=== PATIENT | female | born 1995 | race Caucasian/White ===

== ENCOUNTER 2016-05-07 21:40 | Emergency (ER) | payer BC ==
[2016-05-07 21:47] VITALS: BP 115/63
[2016-05-07] MEDS ORDERED: NS 0.9% 1000 ML* 1,000 ML IV ONE (21:56)
[2016-05-07] MEDS ORDERED: Ondansetron INJ* 2 MG/ML VIAL IV ONE (21:56)
[2016-05-07] MEDS ORDERED: Ketorolac INJ* 30 MG/ML 1 ML VIAL IM ONE (21:56)
[2016-05-07] MEDS ORDERED: Morphine INJ* 2 MG/ML 1 ML CARPUJECT IV ONE (21:56)
--- NOTE | 2016-05-07 22:19 | RAD ---
INDICATION: Right flank pain COMPARISON: RENAL AND BLADDER JANUARY 19, 2015 TECHNIQUE: Noncontrast axial source images were acquired from the level hemidiaphragms to the symphysis pubis as part of CT imaging for renal stone. Lung bases: The lung bases are clear. Liver: The liver is normal in size. Noncontrast imaging shows no evidence of a hepatic mass or ductal dilatation. Gallbladder: There are no calcified gallstones. There is no evidence of wall thickening or pericholecystic fluid.. Spleen: The spleen is normal in size. The noncontrast CT appearance is normal. Pancreas: Noncontrast imaging shows no pancreatic mass or ductal dilitation. Adrenal glands: No masses are identified. Kidneys/Bladder: There is a 1 mm, nonobstructive, lower pole right renal calculus There is no other evidence of nephrolithiasis. There is no CT evidence of hydronephrosis. Noncontrast imaging shows no evidence of a renal mass. The bladder is unremarkable.. Adenopathy: There is no evidence of intraperitoneal or retroperitoneal adenopathy. Evaluation is limited without oral contrast. Fluid collections: There are no free or localized fluid collections. Vessels: The aorta and iliac vessels are normal in caliber. There are no significant atherosclerotic changes. The IVC appears normal Pelvic organs: The uterus and adnexa appear normal GI tract: Evaluation of the bowel is limited without oral contrast. The stomach, small bowel, and lower GI tract appear grossly normal. There are no obstructive findings. The appendix is visualized and appears normal. Soft tissues: No soft tissue abnormalities of the extraperitoneal abdomen or pelvis are identified. Osseous structures: There are no acute osseous findings. IMPRESSION: NONOBSTRUCTIVE, 1 MM LOWER POLE RIGHT RENAL CALCULUS, OTHERWISE NEGATIVE
[2016-05-07 22:43] LABS: Hematocrit 40 % (35-47); Hemoglobin 13.1 g/dl (12.0-16.0); Mean Corpuscular HGB Conc 33 g/dl (31-36); Mean Corpuscular Hemoglobin 30 pg (27-31); Mean Corpuscular Volume 89 fL (80-97); Mean Platelet Volume 9 um3 (7.4-10.4); Red Blood Count 4.45 10^6/ul (4.0-5.4); Red Cell Distribution Width 13 % (10.5-15); White Blood Count 9.6 10^3/ul (3.5-10.8)
[2016-05-07 23:00] LABS: ALT 9 U/L (7-52); AST 14 U/L (13-39); Albumin 4.4 g/dL (3.2-5.2); Alkaline Phosphatase 78 U/L (34-104); Anion Gap 7 mmol/L (2-11); BUN/Creatinine Ratio 12.3 (8-20); Blood Urea Nitrogen 8 mg/dL (6-24); CO2 Carbon Dioxide 25 mmol/L (22-32); Calcium 9.4 mg/dL (8.6-10.3); Chloride 105 mmol/L (101-111); EGFR African American 146.6 (>60); Globulin 3.1 g/dL (2-4); Glucose 85 mg/dL (70-100); Lipase 31 U/L (11.0-82.0); Potassium 3.7 mmol/L (3.5-5.0); Sodium 137 mmol/L (133-145); Total Protein 7.5 g/dL (6.4-8.9)
[2016-05-07 23:42] LABS: Urine Bacteria Absent (Absent); Urine Bilirubin Negative (Negative); Urine Glucose Negative (Negative); Urine Nitrite Negative (Negative)
--- NOTE | 2016-05-08 05:14 | ED ---
Sabas Almeida Adam, scribed for Augusto Kwong on 05/07/16 at 2205 . Abdominal Pain/Female - HPI Summary HPI Summary: Pt is a 20 year old female presenting with pain in her right side that set on suddenly at 17:30. It is localized in her RLQ and right flank and it radiates to the left flank as well. Pt believes it is kidney stones. She has had multiple bouts of kidney stones in the past, the most recent being "years ago". She denies any hematuria, N/V/D, fever, or . She is currently on her MP. Pt takes Adderall, control, and antidepressants. Positive alcohol use. Negative Hx of appendectomy. - History of Current Complaint Chief Complaint: ED Stated Complaint: ABD PAIN Time Seen by Provider: 05/07/16 21:51 Hx Obtained From: Patient Onset/Duration: Sudden Onset, Lasting Hours, Still Present Timing: Constant Severity Initially: Moderate Severity Currently: Moderate Pain Intensity: 7 Pain Scale Used: 0-10 Numeric Location: Discrete At: RLQ, Flank - Right Radiates: Yes Radiates to: Flank - Left Character: Sharp Aggravating Factor(s): Nothing Alleviating Factor(s): Nothing Associated Signs and Symptoms: Positive: Negative Simlar Episode/Dx as:: Multiple kidney stones in the past Allergies/Adverse Reactions: Allergies Allergy/AdvReac Type Severity Reaction Status Date / Time No Known Allergies Allergy Verified 11/18/13 19:28 PMH/Surg Hx/FS Hx/Imm Hx History: Reports: Hx Kidney Stones - BILATERAL, MANY TIMES Musculoskeletal History: Denies: Hx Rheumatoid Arthritis Infectious Disease History: No Infectious Disease History: Denies: Traveled Outside the [place] in Last 30 Days - Family History Known Family History: Positive: None - Noncontributory - Social History Occupation: Student Lives: With Family - Parents Alcohol Use: Occasionally Hx Substance Use: No Substance Use Type: Reports: None Hx Tobacco Use: No Smoking Status (MU): Never Smoked Tobacco Review of Systems Negative: Fever Positive: Abdominal Pain - RLQ. Negative: Vomiting, Diarrhea, Nausea Positive: flank pain - Right All Other Systems Reviewed And Are Negative: Yes Physical Exam Triage Information Reviewed: Yes Vital Signs On Initial Exam: Initial Vitals Temp Pulse Resp BP Pulse Ox 97.9 F 95 16 115/63 98 05/07/16 21:44 05/07/16 21:44 05/07/16 21:44 05/07/16 21:44 05/07/16 21:44 Vital Signs Reviewed: Yes Appearance: Positive: Well-Appearing, No Pain Distress Skin: Positive: Warm, Skin Color Reflects Adequate Perfusion, Dry Head/Face: Positive: Normal Head/Face Inspection Eyes: Positive: EOMI, MAMI ENT: Positive: Normal ENT inspection Neck: Positive: Supple, Nontender Respiratory/Lung Sounds: Positive: Clear to Auscultation, Breath Sounds Present Cardiovascular: Positive: RRR, Pulses are Symmetrical in both Upper and Lower Extremities Abdomen Description: Positive: Other: - Tenderness in the RLQ Bowel Sounds: Positive: Present Musculoskeletal: Positive: Normal, Strength/ROM Intact Neurological: Positive: Normal, Sensory/Motor Intact, Alert, Oriented to Person Place, Time Diagnostics - Vital Signs Vital Signs Temp Pulse Resp BP Pulse Ox 05/07/16 21:44 97.9 F 95 16 115/63 98 - Laboratory Result Diagrams: 05/07/16 22:31 05/07/16 22:31 Lab Statement: Any lab studies that have been ordered have been reviewed, and results considered in the medical decision making process. - CT ABDOMEN/PELVIS CT Interpretation Completed By: Radiologist - IMPRESSION: NONOBSTRUCTIVE, 1 MM LOWER POLE RIGHT RENAL CALCULUS, OTHERWISE NEGATIVE Abdominal Pain Fem Course/Dx - Diagnoses Provider Diagnoses: Flank pain Discharge - Discharge Plan Condition: Stable Disposition: HOME Patient Education Materials: Flank Pain (ED) Referrals: Lali Green NP [Primary Care Provider] - Additional Instructions: Follow up with Lali Green. The documentation as recorded by the Sabas parham Adam accurately reflects the service I personally performed and the decisions made by Varghese martinez Emmanuel.
== END 2016-05-08 01:07 | disposition home or self-care (01) ==
LOC: ED 21:40
DX: R10.31 Right lower quadrant pain (principal)
CPT/HCPCS: 36415; 74176; 80053; 81003; 81015; 83690; 84702; 85025; 96374; 96375; 99285; J1885; J2270; J2405

== ENCOUNTER 2016-09-02 06:56 | Emergency (ER) | payer BC ==
[2016-09-02] MEDS ORDERED: Ondansetron INJ* 2 MG/ML VIAL IV ONE (07:42)
[2016-09-02] MEDS ORDERED: Ketorolac INJ* 30 MG/ML 1 ML VIAL IV PUSH ONE (07:42)
[2016-09-02] MEDS ORDERED: NS 0.9% 1000 ML* 1,000 ML IV ONE ×2 (07:42→09:42)
[2016-09-02 08:04] LABS: Hematocrit 42 % (35-47); Hemoglobin 13.9 g/dl (12.0-16.0); Mean Corpuscular HGB Conc 33 g/dl (31-36); Mean Corpuscular Hemoglobin 29 pg (27-31); Mean Corpuscular Volume 87 fL (80-97); Mean Platelet Volume 8 um3 (7.4-10.4); Red Blood Count 4.76 10^6/ul (4.0-5.4); Red Cell Distribution Width 13 % (10.5-15); White Blood Count 9.3 10^3/ul (3.5-10.8)
[2016-09-02 08:07] LABS: Manual Entry Verification AS; UR Preg Internal Control QC Line Present; UR Preg Kit Lot# 6030156
[2016-09-02 08:18] LABS: BUN/Creatinine Ratio 15.6 (8-20); Calcium 9.3 mg/dL (8.6-10.3); EGFR African American 120.6 (>60); EGFR Non-African American 93.7 (>60); Potassium 3.9 mmol/L (3.5-5.0)
[2016-09-02 08:27] LABS: Urine Bacteria 1+ (Absent); Urine Bilirubin Negative (Negative); Urine Glucose Negative (Negative); Urine Nitrite Positive (Negative)
--- NOTE | 2016-09-02 08:50 | RAD ---
INDICATION: Right flank pain COMPARISON: CT May 07, 2016 TECHNIQUE: Noncontrast axial source images were acquired from the level hemidiaphragms to the symphysis pubis as part of CT imaging for renal stone. The examination is mildly limited due to motion artifact Lung bases: The lung bases are clear. Liver: The liver is normal in size. Noncontrast imaging shows no evidence of a hepatic mass or ductal dilatation. Gallbladder: There are no calcified gallstones. There is no evidence of wall thickening or pericholecystic fluid.. Spleen: The spleen is normal in size. The noncontrast CT appearance is normal. Pancreas: Noncontrast imaging shows no pancreatic mass or ductal dilitation. Adrenal glands: No masses are identified. Kidneys/Bladder: The 1 mm lower pole right renal calculus is not identified on today's examination. There are currently no definitive radiopaque calculi although this tiny calculus might be very difficult to evaluate given the mild limitations of this study or the patient may have passed this tiny calculus. There is mild right-sided hydronephrosis and hydroureter. Noncontrast imaging shows no evidence of a renal mass. The bladder is unremarkable and is only partially distended.. Adenopathy: There is no evidence of intraperitoneal or retroperitoneal adenopathy. Evaluation is limited without oral contrast. Fluid collections: There are no free or localized fluid collections. Vessels: The aorta and iliac vessels are normal in caliber. There are no significant atherosclerotic changes. The IVC appears normal Pelvic organs: The uterus and adnexa appear normal GI tract: Evaluation of the bowel is limited without oral contrast. The stomach, small bowel, and lower GI tract appear grossly normal. There are no obstructive findings. Soft tissues: No soft tissue abnormalities of the extraperitoneal abdomen or pelvis are identified. Osseous structures: There are no acute osseous findings. IMPRESSION: MILDLY LIMITED EXAMINATION DUE TO MOTION ARTIFACT. MILD RIGHT-SIDED HYDRONEPHROSIS AND HYDROURETER. NO DEFINITE RADIOPAQUE CALCULUS
[2016-09-02 12:31] LABS: Urine Bacteria 3+ (Absent); Urine Bilirubin Negative (Negative); Urine Glucose Negative (Negative); Urine Nitrite Negative (Negative)
[2016-09-02 13:12] VITALS: BP 103/73
--- NOTE | 2016-09-02 15:59 | ED ---
Wilmer Almeida Billy scribed for Jerrell Aquino MD on 09/02/16 at 0805 . GI/ HPI - HPI Summary HPI Summary: Patient is a 20 year-old female coming to [facility] for evaluation of right-sided flank pain. She states that the pain started at 0100 but worsened by 0400 today. Positive nausea without vomiting. She rates the pain at 6-7/10. She has a history of kidney stones and states that the pain now is similar to previous kidney stones. She follows Dr. Mobley for urology. Denies any other significant past medical history. - History of Current Complaint Chief Complaint: EDFlankPain Time Seen by Provider: 09/02/16 07:16 Stated Complaint: FLANK PAIN Hx Obtained From: Patient Onset/Duration: Started Hours Ago, Worse Since - 0400 Timing: Constant Severity: Moderate Current Severity: Moderate Pain Intensity: 7 Location of Pain: Flank Associated Signs and Symptoms: Positive: Nausea. Negative: Vomiting Aggravating Factor(s): Nothing Alleviating Factor(s): Nothing - Allergy/Home Medications Allergies/Adverse Reactions: Allergies Allergy/AdvReac Type Severity Reaction Status Date / Time No Known Allergies Allergy Verified 09/02/16 07:18 PMH/Surg Hx/FS Hx/Imm Hx Cardiovascular History: Denies: Hx Myocardial Infarction History: Reports: Hx Kidney Stones - BILATERAL, MANY TIMES Musculoskeletal History: Denies: Hx Rheumatoid Arthritis - Surgical History Surgery Procedure, Year, and Place: MULTIPLE KIDNEY STONE REMOVALS AND STENT PLACMENTS Infectious Disease History: No Infectious Disease History: Denies: Traveled Outside the [place] in Last 30 Days - Family History Known Family History: Negative: Cardiac Disease, Hypertension, Diabetes - Social History Alcohol Use: Occasionally Hx Substance Use: No Substance Use Type: Reports: None Hx Tobacco Use: No Smoking Status (MU): Never Smoked Tobacco Review of Systems Negative: Fever Positive: Nausea. Negative: Vomiting Positive: flank pain All Other Systems Reviewed And Are Negative: Yes Physical Exam - Summary Physical Exam Summary: VITAL SIGNS: Reviewed. GENERAL: Patient is a well developed and nourished female who is lying comfortable in the stretcher. Patient is not in any acute respiratory distress. HEAD AND FACE: Normocephalic and atraumatic. EYES: PERRLA, EOMI x 2, No injected conjunctiva. EARS: Hearing grossly intact. Ear canals and tympanic membranes are WNL. MOUTH: Oropharynx within normal limits. NECK: Supple, trachea is midline, no adenopathy, no JVD. CHEST: Symmetric, no tenderness at palpation LUNGS: Clear to auscultation bilaterally. No wheezing or crackles. CVS: RRR,, S1 and S2 present, no murmurs or gallops appreciated. ABDOMEN: Soft, non-tender. No signs of distention. Positive bowel sounds. No rebound no guarding, and no masses palpated. No abdominal bruit or pulsations. Positive CVAT's in right side EXTREMITIES: FROM in all major joints, no edema, no cyanosis or clubbing. NEURO: Alert and oriented x 3. No acute neurological deficits. Speech is normal. SKIN: Dry and warm Triage Information Reviewed: Yes Vital Signs On Initial Exam: Initial Vitals Temp Pulse Resp BP Pulse Ox 98.4 F 108 18 116/75 99 09/02/16 06:58 09/02/16 06:58 09/02/16 06:58 09/02/16 06:58 09/02/16 06:58 Vital Signs Reviewed: Yes - [place] Coma Scale Coma Scale Total: 15 Diagnostics - Vital Signs Vital Signs Temp Pulse Resp BP Pulse Ox 09/02/16 07:13 97.0 F 112 16 107/92 98 09/02/16 06:58 98.4 F 108 18 116/75 99 - Laboratory Lab Results: Lab Results 09/02/16 09/02/16 09/02/16 Range/Units 07:30 07:57 07:57 WBC 9.3 (3.5-10.8) 10^3/ul RBC 4.76 (4.0-5.4) 10^6/ul Hgb 13.9 (12.0-16.0) g/dl Hct 42 (35-47) % MCV 87 (80-97) fL MCH 29 (27-31) pg MCHC 33 (31-36) g/dl RDW 13 (10.5-15) % Plt Count 277 (150-450) 10^3/ul MPV 8 (7.4-10.4) um3 Sodium 136 (133-145) mmol/L Potassium 3.9 (3.5-5.0) mmol/L Chloride 106 (101-111) mmol/L Carbon Dioxide 23 (22-32) mmol/L Anion Gap 7 (2-11) mmol/L BUN 12 (6-24) mg/dL Creatinine 0.77 (0.51-0.95) mg/dL Est GFR ( Amer) 120.6 (>60) Est GFR (Non-Af Amer) 93.7 (>60) BUN/Creatinine Ratio 15.6 (8-20) Glucose 89 (70-100) mg/dL Calcium 9.3 (8.6-10.3) mg/dL Urine Color Yellow Urine Appearance Cloudy Urine pH 6.0 (5-9) Ur Specific [place] 1.010 (1.010-1.030) Urine Protein Negative (Negative) Urine Ketones Negative (Negative) Urine Blood 3+ H (Negative) Urine Nitrate Positive H (Negative) Urine Bilirubin Negative (Negative) Urine Urobilinogen Negative (Negative) Ur Leukocyte Esterase 3+ H (Negative) Urine WBC (Auto) 3+(>20/hpf) H (Absent) Urine RBC (Auto) 3+(>10/hpf) H (Absent) Ur Squamous Epith Cells Present H (Absent) Calcium Oxalate Crystal Present H (Absent) Urine Bacteria 1+ H (Absent) Urine Glucose Negative (Negative) Urine Ascorbic Acid * H (Negative) Urine Test Negative (Negative) Result Diagrams: 09/02/16 07:57 09/02/16 07:57 Lab Statement: Any lab studies that have been ordered have been reviewed, and results considered in the medical decision making process. - CT abd/pel CT Interpretation Completed By: Radiologist - MILDLY LIMITED EXAMINATION DUE TO MOTION ARTIFACT. MILD RIGHT-SIDED HYDRONEPHROSIS AND HYDROURETER. NO DEFINITE RADIOPAQUE CALCULUS Re-Evaluation - Re-Evaluation First Eval Re-Evaluation Time: 09:38 Change: Improved Comment: The patient is sleeping comfortably at this time. GIGU Course/Dx - Course Assessment/Plan: Patient is a 20 year-old female coming to [facility] for evaluation of right-sided flank pain. She states that the pain started at 0100 but worsened by 0400 today. Positive nausea without vomiting. She rates the pain at 6-7/10. She has a history of kidney stones and states that the pain now is similar to previous kidney stones. She follows Dr. Mobley for urology. Denies any other significant past medical history. Test results WNL. In the ED course, she was given IV fluids and Toradol for the pain and her symptoms subsided. CT abd/pel shows no urolithiasias or ureterlithiasis however she has hydronephrosis , therefore I believe she either has already passed the stone. UA is contaminated, therefore it will be sent for cultures. At this time she is feeling much better. She has no other complaints, pain is 0/10 at this time. She is eating, drinking, and ambulating. Therefore she will be discharged home to follow up with PCP. She was observed for more than 4 hours in the ED and the pain did not return. I discussed all the findings and test results with the patient. Patient was instructed to return to the emergency room immediately if any of the symptoms return or worsens. Plan of care was discussed with the patient and understands and agrees. All questions were answered at patient satisfaction. There were no further complaints or concerns. Lung exam before discharge: CTA B/L. Good air exchange. No wheezing or crackles heard. CVS: S1 and S2 present. No murmurs appreciated. Patient is alert and oriented x 3. Patient is hemodynamically stable. Patient will be discharged home with follow up PCP in the next 2-3 days - Diagnoses Differential Diagnoses - Female: Renal Calculi, Renal Colic, Urinary Tract Infection Provider Diagnoses: Hydroureteronephrosis, Flank pain Discharge - Discharge Plan Condition: Stable Disposition: HOME Patient Education Materials: Flank Pain (ED) Referrals: Lali Green NP [Primary Care Provider] - The documentation as recorded by the Wilmer parham Billy accurately reflects the service I personally performed and the decisions made by me, Jerrell Aquino MD.
--- NOTE | 2016-09-04 14:00 | PN ---
Progress Note - Progress Note Note: Patient urine culture grew E coli >100,000. Sent script to pharmacy for cipro 500mg bid x7 days to [facility]. called and informed patient.
== END 2016-09-02 13:10 | disposition home or self-care (01) ==
LOC: ED 06:56
DX: N13.30 Unspecified hydronephrosis (principal); R10.84 Generalized abdominal pain; R11.0 Nausea
CPT/HCPCS: 36415; 74176; 80048; 81003; 81015; 81025; 85027; 87077; 87086; 87186; 99284; J1885; J2405

== ENCOUNTER 2016-11-11 17:05 | Emergency (ER) | payer BC ==
--- NOTE | 2016-11-11 19:25 | ED ---
Throat Pain/Nasal Congestion - HPI Summary HPI Summary: 21F presents with sore throat for three days. She was seen at urgent care and prescribed augmentin and states sore throat is not getting any better. She never had a strept swap. She admits to a cough and sinus congestion. She does have history of allergies. She denies any fever or anyone else being sick. She denies any chest pain, SOB or difficulty managing secretions. - History of Current Complaint Chief Complaint: EDThroatPain Time Seen by Provider: 11/11/16 18:49 - Allergies/Home Medications Allergies/Adverse Reactions: Allergies Allergy/AdvReac Type Severity Reaction Status Date / Time No Known Allergies Allergy Verified 09/02/16 07:18 PMH/Surg Hx/FS Hx/Imm Hx Endocrine/Hematology History: Denies: Hx Anticoagulant Therapy Cardiovascular History: Denies: Hx Myocardial Infarction History: Reports: Hx Kidney Stones - BILATERAL, MANY TIMES Musculoskeletal History: Denies: Hx Rheumatoid Arthritis - Surgical History Surgery Procedure, Year, and Place: MULTIPLE KIDNEY STONE REMOVALS AND STENT PLACMENTS Infectious Disease History: No Infectious Disease History: Denies: Traveled Outside the [place] in Last 30 Days - Family History Known Family History: Positive: None - Noncontributory Negative: Cardiac Disease, Hypertension, Diabetes - Social History Alcohol Use: Occasionally Hx Substance Use: No Substance Use Type: Reports: None Hx Tobacco Use: No Smoking Status (MU): Never Smoked Tobacco Review of Systems Negative: Fever Positive: Sore Throat Negative: Chest Pain Negative: Shortness Of Breath All Other Systems Reviewed And Are Negative: Yes Physical Exam Triage Information Reviewed: Yes Vital Signs On Initial Exam: Initial Vitals Temp Pulse Resp BP Pulse Ox 98.5 F 105 16 122/75 96 11/11/16 17:06 11/11/16 17:06 11/11/16 17:06 11/11/16 17:06 11/11/16 17:06 Vital Signs Reviewed: Yes Appearance: Positive: Well-Appearing Skin: Positive: Warm, Dry Head/Face: Positive: Normal Head/Face Inspection Eyes: Positive: Normal, Conjunctiva Clear ENT: Positive: Pharyngeal erythema, TMs normal, Tonsillar swelling. Negative: Tonsillar exudate Neck: Positive: Supple, Nontender, No Lymphadenopathy Respiratory/Lung Sounds: Positive: Clear to Auscultation, Breath Sounds Present Cardiovascular: Positive: Normal, RRR Diagnostics - Vital Signs Vital Signs Temp Pulse Resp BP Pulse Ox 11/11/16 17:06 98.5 F 105 16 122/75 96 - Laboratory Lab Statement: Any lab studies that have been ordered have been reviewed, and results considered in the medical decision making process. EENT Course/Dx - Course Course Of Treatment: 21F presents with sore throat for three days. She was seen at urgent care and prescribed augmentin and states sore throat is not getting any better. She never had a strept swap. She admits to a cough and sinus congestion. She does have history of allergies. She denies any fever or anyone else being sick. She denies any chest pain, SOB or difficulty managing secretions. on exam tonsils+2, soft palate symmetric, uvula midline, no exudate. discussed likely viral and that is why not working. will add magic mouth wash and steriod. patient understands and agrees with plan. - Differential Diagnoses Differential Diagnoses: Pharyngitis, Other - strep, mono - Diagnoses Provider Diagnoses: Pharyngitis Discharge - Discharge Plan Condition: Good Disposition: HOME Prescriptions: Dexamethasone TAB* [Decadron TAB*] 4 mg PO DAILY #4 tab Fluticasone NASAL SPRAY 50MCG* [Flonase NASAL SPRAY 50MCG*] 1 spray BOTH NARES DAILY #1 btl Magic Mouth Was-JENNI/MAAL/LIDO* 5 ml SWISH SPIT QID #100 ml Patient Education Materials: Pharyngitis (ED) Referrals: Lali Green SETTER MACHINE [Primary Care Provider] - Additional Instructions: Magic mouthwash 5ml swish and spit can use 4x a day Steroid once a day starting tomorrow Take Flonase one spray each nostril daily for nasal congestion Take Tylenol or ibuprofen for pain Can gargle salt water Can use cough drops or products such as cloraseptic spray Return to ED if develop fever does not respond to Tylenol or ibuprofen, inability to swallow, or difficulty breathing or any new or worsening symptoms
[2016-11-11] MEDS ORDERED: Dexamethasone TAB* 4 MG PO ONE (19:26)
[2016-11-11 20:05] VITALS: BP 108/59
== END 2016-11-11 20:03 | disposition home or self-care (01) ==
LOC: ED 17:05
DX: J02.9 Acute pharyngitis, unspecified (principal)
CPT/HCPCS: 99282; J8540

== ENCOUNTER 2016-12-08 23:29 | Emergency (ER) | payer BC ==
[2016-12-09] MEDS ORDERED: Charcoal ACTIVATED* 25 GM/120 ML BTL PO ONE (00:07)
[2016-12-09 00:44] LABS: Add Diff/Slide Review? Slide Review Added; Comments Flag Yes; Hematocrit 39 % (35-47); Hemoglobin 13.1 g/dl (12.0-16.0); Mean Corpuscular HGB Conc 33 g/dl (31-36); Mean Corpuscular Hemoglobin 29 pg (27-31); Mean Corpuscular Volume 88 fL (80-97); Mean Platelet Volume 8 um3 (7.4-10.4); Red Blood Count 4.47 10^6/ul (4.0-5.4); Red Cell Distribution Width 13 % (10.5-15); White Blood Count 18.1 10^3/ul (3.5-10.8)
[2016-12-09 00:52] LABS: ALT 16 U/L (7-52); AST 19 U/L (13-39); Acetaminophen < 15 mcg/mL; Albumin 4.4 g/dL (3.2-5.2); Alcohol < 10 mg/dL (<10); Alkaline Phosphatase 62 U/L (34-104); Anion Gap 8 mmol/L (2-11); BUN/Creatinine Ratio 8.6 (8-20); Blood Urea Nitrogen 7 mg/dL (6-24); CO2 Carbon Dioxide 25 mmol/L (22-32); Calcium 9.7 mg/dL (8.6-10.3); Chloride 103 mmol/L (101-111); EGFR African American 112.7 (>60); EGFR Non-African American 87.6 (>60); Glucose 103 mg/dL (70-100); Potassium 3.8 mmol/L (3.5-5.0); Salicylate < 2.50 mg/dL (<30); Sodium 136 mmol/L (133-145); Total Protein 7.4 g/dL (6.4-8.9); Urine Bacteria 1+ (Absent); Urine Bilirubin Negative (Negative); Urine Glucose Negative (Negative); Urine Nitrite Negative (Negative)
[2016-12-09 01:41] LABS: Benzodiazepine Urine Screen None Detected (None Detect)
--- NOTE | 2016-12-09 02:25 | ED ---
David Almeida Rebecca, scribed for Eduardo Ross MD on 12/09/16 at 0007 . Substance Abuse/Use - HPI Summary HPI Summary: Pt is a 21 y/o F BIBA who presents to ED s/p excessive hydroxyzine ingestion. At approximately 2000, the pt took a "handful" of hydroxyzine while at home. Her parent called EMS and they had to convince her to be evaluated by [facility] as she was "very distracted." Pt is unsure of how many she took. Denies SIs or attempting suicide by ingestion of the pills. No prior recent episodes. PMHx depression. Mother notes a recent increase in stress due to a new job. - History Of Current Complaint Chief Complaint: EDSubstanceAbuse Stated Complaint: OVERDOSE Time Seen by Provider: 12/08/16 23:57 Hx Obtained From: Family/Clinical Pharmacy Technician - Mother Onset/Duration of Drug/ETOH Abuse: Hours - 2200 Ingestion History: Type/Name Of Drug - Hydroxyzine Overdose Characteristics: Oral Aggravating Factor(s): Nothing Alleviating Factor(s): Nothing - Allergies/Home Medications Allergies/Adverse Reactions: Allergies Allergy/AdvReac Type Severity Reaction Status Date / Time No Known Allergies Allergy Verified 09/02/16 07:18 PMH/Surg Hx/FS Hx/Imm Hx Endocrine/Hematology History: Denies: Hx Anticoagulant Therapy Cardiovascular History: Denies: Hx Myocardial Infarction History: Reports: Hx Kidney Stones - BILATERAL, MANY TIMES Musculoskeletal History: Denies: Hx Rheumatoid Arthritis Psychiatric History: Reports: Hx Depression - Surgical History Surgery Procedure, Year, and Place: MULTIPLE KIDNEY STONE REMOVALS AND STENT PLACMENTS Infectious Disease History: Denies: Traveled Outside the [place] in Last 30 Days - Family History Known Family History: Negative: Cardiac Disease, Hypertension, Diabetes - Social History Alcohol Use: Occasionally Hx Substance Use: No Substance Use Type: Reports: None Hx Tobacco Use: No Smoking Status (MU): Never Smoked Tobacco Review of Systems Positive: Other - s/p hydroxyzine ingestion Positive: Other - "very distracted" All Other Systems Reviewed And Are Negative: Yes Physical Exam Triage Information Reviewed: Yes Vital Signs On Initial Exam: Initial Vitals Pulse Pulse Ox 70 86 12/08/16 23:55 12/08/16 23:55 Vital Signs Reviewed: Yes Appearance: Positive: No Pain Distress, Thin Skin: Positive: Warm Head/Face: Positive: Normal Head/Face Inspection Eyes: Positive: MAMI ENT: Positive: Hearing grossly normal Neck: Positive: Supple Respiratory/Lung Sounds: Positive: Breath Sounds Present Cardiovascular: Positive: RRR Abdomen Description: Positive: Nontender, Soft Bowel Sounds: Positive: Present Musculoskeletal: Positive: Strength/ROM Intact Neurological: Positive: Alert, Oriented to Person Place, Time Psychiatric: Positive: Anxious Diagnostics - Laboratory Result Diagrams: 12/09/16 00:10 12/09/16 00:10 Lab Statement: Any lab studies that have been ordered have been reviewed, and results considered in the medical decision making process. - EKG 0018 Cardiac Rate: Tachycardia - 123 bpm EKG Rhythm: Sinus Tachycardia EKG Interpretation: Normal Re-Evaluation - Re-Evaluation First Eval Change: Improved Course/Dx - Course Assessment/Plan: Pt is a 21 y/o F BIBA who presents to ED s/p excessive hydroxyzine ingestion. At approximately 2000, the pt took a "handful" of hydroxyzine while at home. Her parent called EMS and they had to convince her to be evaluated by [facility] as she was "very distracted." Pt is unsure of how many she took. Denies SIs or attempting suicide by ingestion of the pills. No prior recent episodes. PMHx depression. Mother notes a recent increase in stress due to a new job. EKG reveals sinus tachycardia. Toxicology reveals presumptive positive H for opiates and amphetamines and serum alcohol <10. WBC of 18.1. In the ED course, the pt received ActidoseAqua and Ativan. Medically cleared for MHE at 0605. Pt will be signed out, pending dispo, awaiting MHE. - Diagnoses Provider Diagnoses: Polysubstance abuse Discharge - Discharge Plan Condition: Stable Disposition: OTHER Discharge Disposition Comment: Pt will be signed out, pending dispo, awaiting MHE. Referrals: Lali Green NP [Primary Care Provider] - The documentation as recorded by the David parham Rebecca accurately reflects the service I personally performed and the decisions made by me, Eduardo Ross MD.
[2016-12-09] MEDS ORDERED: LORazepam INJ* 2 MG/ML 1 ML VIAL IV PUSH ONE (03:31)
[2016-12-09] MEDS ORDERED: LORazepam INJ* 2 MG/ML 1 ML VIAL ONE (03:35)
[2016-12-09 12:31] VITALS: BP 115/74
--- NOTE | 2016-12-15 21:48 | ED ---
Lyubov Almeida Alfonso, scribed for Kentrell Motta MD on 12/09/16 at 1133 . Progress - Progress Note Progress Note: Reevaluation at 1145. She is prescribed Zoloft but denies taking it. She reports taking hydroxyzine which matches the abnormalities on her two EKGs. Her second EKG is also stable and the QTc is unchanged. She is awake. This patient was signed out from Dr. Ross, pending disposition, awaiting MHE. After MHE the patients condition is stable and she will be discharged to home with Dx of intentional drug overdose and depression. - Results/Orders Results/Orders: EKG at 1033 reveals Sinus Tachycardia. 111 BPM. QTc 473. - Consult/PCP Time Called: 10:49 Course/Dx - Diagnoses Provider Diagnoses: Drug overdose, intentional, Depression The documentation as recorded by the Lyubov parham Alfonso accurately reflects the service I personally performed and the decisions made by Kalia martinez Jerry, MD.
== END 2016-12-09 12:29 ==
LOC: ED 23:29
DX: T50.902A Poisoning by unspecified drugs, medicaments and biological substances, intentional self-harm, initial encounter (principal); Y92.9 Unspecified place or not applicable; F32.9 Major depressive disorder, single episode, unspecified
CPT/HCPCS: 36415; 80053; 80307; 80320; 80329; 81003; 81015; 83605; 85025; 87077; 87086; 87186; 93005; 99282; A9270-GY; G0480; J2060

== ENCOUNTER 2017-03-19 19:25 | Emergency (ER) | payer BC ==
[2017-03-19] MEDS ORDERED: predniSONE TAB* 20 MG PO ONE (19:44)
[2017-03-19] MEDS ORDERED: Albuterol 2.5 MG/3 ML NEB.SOL* (0.083%) INH ONE (19:44)
--- NOTE | 2017-03-19 20:14 | RAD ---
Indication: Cough. 2 views of the chest are reviewed. No mediastinal shift is noted. Heart is of normal size and configuration. Lung medina are clear. IMPRESSION: No active cardiopulmonary disease is noted.
[2017-03-19] MEDS ORDERED: Albuterol/Ipratropium NEB.SOL* Albuterol 2.5 MG/Ipratropium 0.5 MG 3 ML INH ONE (20:21)
--- NOTE | 2017-03-19 20:35 | ED ---
Respiratory - HPI Summary HPI Summary: 21F presents with cough and shortness of breath since Nov. She states she was diagnosed with pneumonia. She has been on multiple antibiotics without relief. She never had a chest xray. She states over the past three days the cough and SOB have increased. She admits to sinus congestion. she admits to mild sore throat from coughing. She is a smoker. She denies any history of asthma but has family history of such. She denies any fever. She denies any chest pain. She denies any abdominal pain or n/v. - History of Current Complaint Chief Complaint: EDShortnessOfBreath Stated Complaint: COUGH/DIFFICULTY BREATHING Time Seen by Provider: 03/19/17 19:35 Pain Intensity: 5 Sputum Amount: None - Allergy/Home Medications Allergies/Adverse Reactions: Allergies Allergy/AdvReac Type Severity Reaction Status Date / Time No Known Allergies Allergy Verified 09/02/16 07:18 PMH/Surg Hx/FS Hx/Imm Hx Endocrine/Hematology History: Denies: Hx Anticoagulant Therapy Cardiovascular History: Denies: Hx Myocardial Infarction Respiratory History: Denies: Hx Asthma, Hx Chronic Obstructive Pulmonary Disease (COPD) History: Reports: Hx Kidney Stones - BILATERAL, MANY TIMES Musculoskeletal History: Denies: Hx Rheumatoid Arthritis Psychiatric History: Reports: Hx Depression Denies: Hx Eating Disorder, Hx of Violent Episodes Against Others - Surgical History Surgery Procedure, Year, and Place: MULTIPLE KIDNEY STONE REMOVALS AND STENT PLACMENTS - Immunization History Immunizations Up to Date: Yes Infectious Disease History: No Infectious Disease History: Denies: Traveled Outside the [place] in Last 30 Days - Family History Known Family History: Positive: None - Noncontributory, Respiratory Disease Negative: Cardiac Disease, Hypertension, Diabetes - Social History Alcohol Use: Occasionally Hx Substance Use: No Substance Use Type: Reports: None Hx Tobacco Use: No Smoking Status (MU): Current Some Day Smoker Review of Systems Negative: Fever Positive: Nasal Discharge Negative: Chest Pain Positive: Shortness Of Breath, Cough Negative: Abdominal Pain All Other Systems Reviewed And Are Negative: Yes Physical Exam Triage Information Reviewed: Yes Vital Signs On Initial Exam: Initial Vitals Temp Pulse Resp BP Pulse Ox 97.6 F 95 16 107/85 96 03/19/17 19:28 03/19/17 19:28 03/19/17 19:28 03/19/17 19:28 03/19/17 19:28 Vital Signs Reviewed: Yes Appearance: Positive: Well-Appearing Skin: Positive: Warm, Dry Head/Face: Positive: Normal Head/Face Inspection Eyes: Positive: Normal, EOMI, MAMI, Conjunctiva Clear ENT: Positive: Normal ENT inspection, Pharynx normal, Nasal drainage, TMs normal Respiratory/Lung Sounds: Positive: Breath Sounds Present, Wheezes Cardiovascular: Positive: Normal, RRR Abdomen Description: Positive: Nontender, Soft Bowel Sounds: Positive: Present Musculoskeletal: Positive: Normal Neurological: Positive: Normal Psychiatric: Positive: Normal - Coronado Coma Scale Coma Scale Total: 15 Diagnostics - Vital Signs Vital Signs Temp Pulse Resp BP Pulse Ox 03/19/17 19:54 97 17 95 03/19/17 19:28 97.6 F 95 16 107/85 96 - Laboratory Lab Statement: Any lab studies that have been ordered have been reviewed, and results considered in the medical decision making process. - Radiology chest Xray Interpretation: No Acute Changes Radiology Interpretation Completed By: Radiologist Disposition - Course Course Of Treatment: 21F presents with cough and shortness of breath since Nov. She states she was diagnosed with pneumonia. She has been on multiple antibiotics without relief. She never had a chest xray. She states over the past three days the cough and SOB have increased. She admits to sinus congestion. she admits to mild sore throat from coughing. She is a smoker. She denies any history of asthma but has family history of such. She denies any fever. She denies any chest pain. She denies any abdominal pain or n/v. on exam wheezes heard. heart RRR. gave two nebs and patient lungs CTA and feeling better. xray normal. will treat with flonase, inhaler and prednisone. believe that is asthma/allergy cough rather than illness. will have follow up with primary for PFT. patient understand and agrees with plan. - Differential Dx - Cardiopulmonary Differential Diagnoses - Cardiopulmonary: Asthma, Bronchitis, Lower Resp Infection - Diagnoses Provider Diagnoses: Cough, Shortness of breath Discharge - Discharge Plan Condition: Good Disposition: HOME Prescriptions: Albuterol HFA INHALER* [Ventolin HFA Inhaler*] 1 puff INH Q4H PRN #1 mdi PRN Reason: Cough Benzonatate CAP* [Tessalon 100 MG CAP*] 100 mg PO TID #21 cap Fluticasone NASAL SPRAY 50MCG* [Flonase NASAL SPRAY 50MCG*] 1 spray BOTH NARES DAILY #1 btl predniSONE TAB* [Deltasone TAB*] 40 mg PO DAILY #4 tab Patient Education Materials: Chronic Cough (ED) Referrals: Lali Green NP [Primary Care Provider] - Additional Instructions: Follow up with primary as wound benefit from pulmonary function testing as lungs sound like you have asthma Use intranasal steroid one spray each nostril once a day Use inhaler up to two puffs every 4 hours for cough and wheezing take cough medication three times a day Take steroid once a day for 4 more days starting tomorrow Take Tylenol or ibuprofen for pain every 6 hours Return to ED if develop any new or worsening symptoms
[2017-03-19 20:57] VITALS: BP 103/76
[2017-03-19] MEDS ORDERED: Benzonatate CAP* 100 MG PO ONE (20:58)
[2017-03-19] MEDS ORDERED: Albuterol HFA INHALER* 8 gm MDI INH ONE ×2 (20:58→21:00)
== END 2017-03-19 21:06 | disposition home or self-care (01) ==
LOC: ED 19:25
DX: R05 Cough (principal); R06.02 Shortness of breath; F17.200 Nicotine dependence, unspecified, uncomplicated; Z87.442 Personal history of urinary calculi
CPT/HCPCS: 71020; 94640; 99282; A9270-GY; J7512

== ENCOUNTER 2017-04-13 17:52 | Emergency (ER) | payer BC ==
[2017-04-13 17:57] VITALS: BP 136/69
--- NOTE | 2017-04-18 10:52 | ED ---
Mark Almeida Abhishek, scribed for Kentrell Motta MD on 04/13/17 at 1945 . Progress - Progress Note Progress Note: Pt left without being seen by the ED physician. The documentation as recorded by the Mark parham Abhishek accurately reflects the service I personally performed and the decisions made by Kalia martinez Jerry, MD.
== END 2017-04-13 19:25 | disposition left against medical advice (07) ==
LOC: ED 17:52
DX: R06.00 Dyspnea, unspecified (principal); Z53.21 Procedure and treatment not carried out due to patient leaving prior to being seen by health care provider

== ENCOUNTER 2017-04-13 20:01 | Emergency (ER) | payer BC ==
[2017-04-13] MEDS ORDERED: PrednisoLONE LIQ 3 MG/ML* 15 MG/5 ML UDC PO ONE (20:33)
[2017-04-13] MEDS ORDERED: Albuterol/Ipratropium NEB.SOL* Albuterol 2.5 MG/Ipratropium 0.5 MG 3 ML INH ONE ×2 (20:38→21:26)
--- NOTE | 2017-04-13 20:53 | RAD ---
INDICATION: Wheezing COMPARISON: Chest x-ray March 19, 2017 TECHNIQUE: PA and lateral views of the chest were obtained. FINDINGS: The heart and mediastinum are normal in size and contour. Mild peribronchial cuffing is seen. The lungs are grossly clear. There is no evidence of large pleural effusion. Visualized bones are normal for the patient's age. There is no radiographic evidence of free air beneath the diaphragm IMPRESSION: THE MILD PERIBRONCHIAL CUFFING SIMILAR APPEARANCE TO THE PRIOR CHEST X-RAY COULD BE SEEN IN INFLAMMATORY LUNG DISEASE OR VIRAL PNEUMONIA.
[2017-04-13] MEDS ORDERED: Benzonatate CAP* 100 MG PO ONE (20:57)
--- NOTE | 2017-04-13 21:10 | UC ---
Respiratory Complaint HPI - HPI Summary HPI Summary: Patient is a 21F who presents to the with cough and shortness of breath since about October which has been intermittent, yet triggered and worsened by cough. She states she was diagnosed with pneumonia once and asthma once. She has been on multiple antibiotics without relief. Last chest xray 3 weeks ago and previously 2 months ago with both negative for PNA. She states over the past week the cough and SOB have increased. She admits to sinus congestion. She is a smoker. She denies any history of asthma but has family history of such. She denies any fever. She denies any chest pain. She denies any abdominal pain or n/v. She states her cough becomes so bad that she loses her breath and begins to cry. She is scared as she is out of her inhaler and her symptoms continue to worsen. - History of Current Complaint Chief Complaint: UCRespiratory Stated Complaint: URI Time Seen by Provider: 04/13/17 20:20 Hx Obtained From: Patient Hx Last Menstrual Period: 04/13/17 ?: No Onset/Duration: Gradual Onset Timing: Intermittent Episodes Severity Initially: Severe Severity Currently: Severe Pain Intensity: 1 Pain Scale Used: 0-10 Numeric Character: Cough: Productive Aggravating Factors: Deep Breaths, Recumbent Position Alleviating Factors: Bronchodilator, Upright Position Associated Signs And Symptoms: Positive: Dyspnea, Wheezing, URI. Negative: Fever, Chills, Hemoptysis, Dizziness, Calf Pain, Calf Swelling - Risk Factors Pulmonary Embolism Risk Factors: Smoking Cardiac Risk Factors: Smoking Pseudomonas Risk Factors: Repeated Antibiotics Past 3 Months Tuberculosis Risk Factors: Negative - Allergies/Home Medications Allergies/Adverse Reactions: Allergies Allergy/AdvReac Type Severity Reaction Status Date / Time No Known Allergies Allergy Verified 04/13/17 20:17 PMH/Surg Hx/FS Hx/Imm Hx Previously Healthy: Yes Other History Of: Negative For: Anticoagulant Therapy - Surgical History Surgical History: Yes Surgery Procedure, Year, and Place: MULTIPLE KIDNEY STONE REMOVALS AND STENT PLACMENTS - Family History Known Family History: Positive: None - Noncontributory, Respiratory Disease Negative: Cardiac Disease, Hypertension, Diabetes - Social History Occupation: Employed Full-time Lives: With Family Alcohol Use: Rare Substance Use Type: None Smoking Status (MU): Light Every Day Tobacco Smoker Type: Cigarettes Review of Systems Constitutional: Negative Skin: Negative Respiratory: Shortness Of Breath, Cough Cardiovascular: Negative Motor: Negative Neurovascular: Negative Neurological: Negative Psychological: Anxious Is Patient Immunocompromised?: No All Other Systems Reviewed And Are Negative: Yes Physical Exam Triage Information Reviewed: Yes Appearance: Pain Distress, Thin, Other: - difficulty breathing on arrival Vital Signs: Initial Vital Signs Temp 97.6 F 04/13/17 20:09 Pulse 104 04/13/17 20:09 Resp 18 04/13/17 20:09 BP 133/77 04/13/17 20:09 Pulse Ox 99 04/13/17 20:09 Vital Signs Reviewed: Yes Eye Exam: Normal Eyes: Positive: Conjunctiva Clear Neck exam: Normal Neck: Positive: Supple, No Lymphadenopathy Respiratory: Positive: Respiratory distress, Wheezing Cardiovascular: Positive: No Murmur, Pulses Normal Musculoskeletal Exam: Normal Musculoskeletal: Positive: Strength Intact Psychological: Positive: Normal Response To Family, Other: - tearful Skin Exam: Normal Diagnostic Evaluation - Laboratory O2 Sat by Pulse Oximetry: 99 Respiratory Course/Dx - Course Course Of Treatment: During the course of treatment, peak flow obtained. Sat at 92. Chest xray performed. Duo-neb with 45mg prednisolone liquid intermittently given to allow for better absorption with both an inhaled beta agonist and anticholinergic for possible reactive airway. Continues to have coughing fit until mid treatment, bronchioles calmed and she felt improved. Sat at 97. Peak flow obtained s/p treatment at 60 to 150. She is driving so given 200mg Tessalon. Second duo-neb given along with robitussin to allow for more expectoration of any mucous. IMPRESSION: THE MILD PERIBRONCHIAL CUFFING SIMILAR APPEARANCE TO THE PRIOR CHEST X-RAY COULD BE SEEN IN INFLAMMATORY LUNG DISEASE OR VIRAL PNEUMONIA. She is feeling improved and sats remain at 99. Other VS stable. She is given combivent (4 times daily), albuterol inhaler as rescue, prednisone once daily in the morning and singulair for allergic component. 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 I have advised she see Dr. Garcia (pulmonology) for further evaluation. She will also follow up with her PCP. She is given strict return precautions to return to UC or ED for worsening or changing symptoms. She is agreeable to this and feels safe at this time on discharge to go home with dispensed medications. - Differential Dx/Diagnosis Differential Diagnosis/HQI/PQRI: Asthma, Sinusitis, Other - reactive airway Provider Diagnoses: Reactive Airway Disease Discharge - Discharge Plan Condition: Stable Disposition: HOME Prescriptions: Albuterol HFA INHALER* [Ventolin HFA Inhaler*] 1 - 2 puff INH Q4H PRN #1 mdi PRN Reason: Shortness Of Breath Albuterol/Ipratropium RESP(NF) [Combivent Respimat(NF)] 1 aer IN QID #1 aer Benzonatate CAP* [Tessalon CAP*] 100 mg PO TID #21 cap Guaifenesin-Codeine [Codeine/Guaifenesin 100-10 mg/5Ml] 1 christy PO Q6H PRN #200 ml MDD 40 PRN Reason: Cough Montelukast Sodium TAB* [Singulair TAB*] 10 mg PO BEDTIME #10 tab predniSONE TAB* [Deltasone TAB*] 50 mg PO DAILY #5 tab Patient Education Materials: Reactive Airways Disease (ED) Forms: *Work Release Referrals: Radha Garcia MD [Medical Doctor] - Lali Green NP [Primary Care Provider] - Additional Instructions: Prednisone once daily in the MORNING Singulair one daily in the evening Robitussin with codeine (2 teaspoons at bedtime) Tessalon perles (three times daily as needed for cough) Combivent four times daily while having symptoms Albuterol inhaler for shortness of breath - this is used as s rescue inhaler Please follow up with Dr. Garcia - call for appt. Please follow up with your PCP If you develop any worsening cough or SOB not controlled by these medications, return to the UC or ED immediately.
[2017-04-13] MEDS ORDERED: guaiFENesin LIQ* 100 MG/5 ML UDC PO ONE (21:22)
[2017-04-13] MEDS ORDERED: Albuterol/Ipratropium NEB.SOL* Albuterol 2.5 MG/Ipratropium 0.5 MG 3 ML ONE (21:26)
[2017-04-13] MEDS ORDERED: guaiFENesin/CODIEN 100MG-10MG* 5 ML UDC PO ONE (21:48)
[2017-04-13] MEDS ORDERED: Albuterol HFA INHALER* 8 gm MDI INH ONE (21:59)
[2017-04-13 22:12] VITALS: BP 134/77
== END 2017-04-13 22:17 | disposition home or self-care (01) ==
LOC: UCEAST 20:01
DX: J45.909 Unspecified asthma, uncomplicated (principal); F17.210 Nicotine dependence, cigarettes, uncomplicated
CPT/HCPCS: 71020; 99213; A9270-GY; G0463; J7510

== ENCOUNTER 2017-05-05 12:10 | Emergency (ER) | payer BC ==
[2017-05-05] MEDS ORDERED: Albuterol/Ipratropium NEB.SOL* Albuterol 2.5 MG/Ipratropium 0.5 MG 3 ML INH ONE (12:41)
[2017-05-05] MEDS ORDERED: predniSONE TAB* 20 MG PO ONE (12:42)
--- NOTE | 2017-05-05 12:49 | UC ---
Asthma HPI - HPI Summary HPI Summary: recently dx with asthma at urgent care---has been unable to follow with pcp (as she owes the office money) did not make a f/u appointment with Dr. Darling yet-- has been using albuterol >8 times a day---today had a syncopal episode in the shower believes she had a faint that last about 15-20 minutes (this was not witnessed). - History of Current Complaint Chief Complaint: UCAsthma Stated Complaint: SORE THROAT SHORT OF BREATH Time Seen by Provider: 05/05/17 12:30 Hx Obtained From: Patient Hx Last Menstrual Period: 04/13/17 ?: No Onset/Duration: Sudden Onset, Worse Since - today Initial Severity: Moderate Current Severity: Moderate Location/Character: Wheezing Alleviating Factor(s): Inhalers/Nebulizers Associated Signs and Symptoms: Positive: URI, Shortness of Breath - Allergy/Home Medications Allergies/Adverse Reactions: Allergies Allergy/AdvReac Type Severity Reaction Status Date / Time No Known Allergies Allergy Verified 04/13/17 20:17 PMH/Surg Hx/FS Hx/Imm Hx Previously Healthy: No Other History Of: Negative For: Anticoagulant Therapy - Surgical History Surgical History: Yes Surgery Procedure, Year, and Place: MULTIPLE KIDNEY STONE REMOVALS AND STENT PLACMENTS - Family History Known Family History: Positive: None - Noncontributory, Respiratory Disease Negative: Cardiac Disease, Hypertension, Diabetes - Social History Occupation: Employed Part-time Lives: With Family Alcohol Use: Rare Substance Use Type: None Smoking Status (MU): Former Smoker Type: Cigarettes - Immunization History Most Recent Influenza Vaccination: none Review of Systems Constitutional: Negative Skin: Negative Eyes: Negative ENT: Negative Respiratory: Shortness Of Breath, Cough Cardiovascular: Negative Gastrointestinal: Negative Genitourinary: Negative Motor: Negative Neurovascular: Negative Musculoskeletal: Negative Neurological: Negative Psychological: Negative Is Patient Immunocompromised?: No All Other Systems Reviewed And Are Negative: Yes Physical Exam Triage Information Reviewed: Yes Appearance: No Pain Distress, Well-Nourished, Ill-Appearing - mild Vital Signs: Initial Vital Signs Temp 97.7 F 05/05/17 12:21 Pulse 124 05/05/17 12:21 Resp 24 05/05/17 12:21 BP 109/83 05/05/17 12:21 Pulse Ox 95 05/05/17 12:21 Vital Signs Reviewed: Yes Eye Exam: Normal Eyes: Positive: Conjunctiva Clear ENT Exam: Normal ENT: Positive: Normal ENT inspection, Hearing grossly normal, Pharynx normal, TMs normal. Negative: Nasal congestion, Tonsillar swelling, Tonsillar exudate, Trismus, Muffled voice, Hoarse voice, Dental tenderness, Sinus tenderness Dental Exam: Normal Neck exam: Normal Neck: Positive: Supple, Nontender, No Lymphadenopathy Respiratory Exam: Normal Respiratory: Positive: Chest non-tender, No accessory muscle use, Respiratory distress - mild, Wheezing Cardiovascular Exam: Normal Cardiovascular: Positive: No Murmur, Pulses Normal, Brisk Capillary Refill, Tachycardia Musculoskeletal Exam: Normal Musculoskeletal: Positive: Strength Intact, ROM Intact, No Edema Neurological Exam: Normal Neurological: Positive: Alert, Muscle Tone Normal Psychological Exam: Normal Skin Exam: Normal Re-Evaluation - Re-Evaluation First Eval Change: Improved - after Duo Neb and albuterol--Peak flow 175 increase airmovement, hr 140-150 Sat 94-95%, rr 28 harsh cough remains appears uncomfortable Asthma Course/Dx - Course Course Of Treatment: transfer to er with mother driving (patient refused EMS) for further evaluation and treatment - Differential Dx/Diagnosis Provider Diagnoses: Intractable Bronchospasm - Physician Notification/Consults Discussed Patient Care With: Jerrell Aquino Time Discussed With Above Provider: 14:30 Instructed by Provider To: Transfer Discharge - Discharge Plan Condition: Guarded Disposition: OTHER Discharge Disposition Comment: to ED via Private Car Referrals: Lali Green NP [Primary Care Provider] - Additional Instructions: Please report directly to emergency department for further evaluation and care
[2017-05-05] MEDS ORDERED: Albuterol 2.5 MG/3 ML NEB.SOL* (0.083%) INH ONE (13:34)
[2017-05-05 14:20] VITALS: BP 135/95
--- NOTE | 2017-05-07 15:46 | UC ---
- Progress Note Progress Note: Urine culture with E. Coli. Pt was admitted to [facility] prior to these results. Will defer to their clinical determination/treatment plan. Re-Evaluation - Re-Evaluation First Eval Change: Improved - after Duo Neb and albuterol--Peak flow 175 increase airmovement, hr 140-150 Sat 94-95%, rr 28 harsh cough remains appears uncomfortable Course/Dx - Provider Notifications Time Discussed With Above Provider: 14:30 Instructed by Provider To: Transfer
== END 2017-05-05 14:47 ==
LOC: UCEAST 12:10
DX: J98.01 Acute bronchospasm (principal); J06.9 Acute upper respiratory infection, unspecified; Z87.442 Personal history of urinary calculi; Z87.891 Personal history of nicotine dependence
CPT/HCPCS: 81003; 81025; 87077; 87086; 87186; 93005; 99213; A9270-GY; G0463; J7512

== ENCOUNTER 2017-05-05 15:47 | Inpatient (IN) | payer BC ==
[2017-05-05] MEDS ORDERED: methylPREDNISolone 125 MG* 2 ML VIAL IV ONE (16:40)
[2017-05-05] MEDS ORDERED: NS 0.9% 1000 ML* 1,000 ML IV ONE ×2 (16:40→20:30)
[2017-05-05] MEDS ORDERED: Levalbuterol 1.25MG/0.5ML NEB INH ONE (16:40)
[2017-05-05 17:10] LABS: ABS Basophils 0 10^3/ul (0-0.2); ABS Eosinophils 0 10^3/ul (0-0.6); ABS Lymphocytes 0.5 10^3/ul (1.0-4.8); ABS Monocytes 0.1 10^3/ul (0-0.8); ABS Neutrophils 10.9 10^3/ul (1.5-7.7); ABS Nucleated RBC 0 10^3/ul; Eosinophil % 0 % (0-6); Hematocrit 39 % (35-47); Hemoglobin 13.5 g/dl (12.0-16.0); Lymphocyte % 4.3 % (25-47); Mean Corpuscular HGB Conc 35 g/dl (31-36); Mean Corpuscular Hemoglobin 29 pg (27-31); Mean Corpuscular Volume 85 fL (80-97); Mean Platelet Volume 8 um3 (7.4-10.4); Nucleated Red Blood Cells % 0; Platelet Count 320 10^3/ul (150-450); Red Blood Count 4.62 10^6/ul (4.0-5.4); Red Cell Distribution Width 14 % (10.5-15); White Blood Count 11.6 10^3/ul (3.5-10.8)
[2017-05-05 17:25] LABS: EGFR Non-African American 98.8 (>60)
--- NOTE | 2017-05-05 18:23 | RAD ---
HISTORY: Shortness of breath COMPARISONS: April 13, 2017 VIEWS: 2: Frontal and lateral views of the chest. FINDINGS: CARDIOMEDIASTINAL SILHOUETTE: The cardiomediastinal silhouette is normal. KYARA: The kyara are normal. PLEURA: The costophrenic angles are sharp. No pleural abnormalities are noted. LUNG PARENCHYMA: The lungs are clear. ABDOMEN: The upper abdomen is clear. There is no subphrenic gas. BONES AND SOFT TISSUES: No bone or soft tissue abnormalities are noted. OTHER: None. IMPRESSION: NO ACTIVE CARDIOPULMONARY DISEASE.
[2017-05-05] MEDS ORDERED: Azithromycin TAB* 250 MG PO ONE (18:37)
[2017-05-05] MEDS ORDERED: Albuterol 2.5 MG/3 ML NEB.SOL* (0.083%) INH PRN (20:17)
[2017-05-05] MEDS ORDERED: Acetaminophen TAB* 325 MG PO PRN (20:17)
[2017-05-05] MEDS ORDERED: Ondansetron INJ* 2 MG/ML VIAL IV PRN (20:18)
--- NOTE | 2017-05-05 20:53 | HP ---
H&P (Free Text) History and Physical: PCP: Lavinia Keith NP Date/Time: 05/05/20171944 CC: SOB HPI: Ms Hilton is a 21YO female who is difficult to pin down on the timeline of her symptoms. She presents for SOB which began in October 2016 which she had been seen several times at urgent care and variable told it is asthma or not, bronchitis or not, etc. She has been referred to Leyla Garcia MD pulmonology, but has not yet made this appointment. The SOB is worse with exertion. Albuterol NEB has made it better today. Today while in the shower she feinted, hitting her head. She does not believe she was out more than 15minutes. She has had some nausea with small volume emesis mainly after coughing spells, denies F/C, sweats, diarrhea, chest pain, palpitation, or other issues. 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 FamHx: Mother: urolithiasis; Father: healthy; Brother: healthy ROS: as above, otherwise reviewed and all were negative vitals: Vital Signs Temp 36.7 C 05/05/17 23:11 Pulse 112 05/05/17 23:11 Resp 18 05/06/17 00:19 BP 123/51 05/05/17 23:11 Pulse Ox 99 05/05/17 23:11 Intake & Output 05/05/17 05/05/17 05/06/17 11:59 23:59 11:59 Intake Total 1000 Balance 1000 Weight 54.068 kg Intake: IV Fluids 1000 Oral 0 Other: Estimated Void Large # Bowel Movements 0 # Voids 1 Constitutional: NAD, normally developed, well-nourished white female HEENM: atraumatic; sclera/conjunctiva: anicteric/clear; hearing: clinically intact; oropharynx: clear, mucosa tacky Neck: soft tissue: non-tender; thyroid: normal Pulmonary: clear to auscultation bilaterally, good aeration, no accessory muscle use CV: RR/RR, normal S1S2, no carotid bruit, no jugular venous distention, 2+ B DP/ PT, no edema Abdominal: soft, non-distended, non-tender, no rebound/guarding/rigidity, normoactive bowel sounds, no hepatosplenomegaly or masses, no costovertebral angle tenderness Musculoskeletal: general: grossly intact, no tenderness w/ palpation Integumental: normal appearance and texture of exposed skin Psychiatric orientation: AA&O to PPS affect: calm mood: cooperative eye contact: fair content: reliable, but convoluted insight: fair Testing: Lab Results 05/05/17 05/05/17 05/05/17 Range/Units 17:05 17:05 17:05 WBC 11.6 H (3.5-10.8) 10^3/ul RBC 4.62 (4.0-5.4) 10^6/ul Hgb 13.5 (12.0-16.0) g/dl Hct 39 (35-47) % MCV 85 (80-97) fL MCH 29 (27-31) pg MCHC 35 (31-36) g/dl RDW 14 (10.5-15) % Plt Count 320 (150-450) 10^3/ul MPV 8 (7.4-10.4) um3 Neut % (Auto) 94.7 H (38-83) % Lymph % (Auto) 4.3 L (25-47) % [place] % (Auto) 0.9 L (1-9) % Eos % (Auto) 0 (0-6) % Baso % (Auto) 0.1 (0-2) % Absolute Neuts (auto) 10.9 H (1.5-7.7) 10^3/ul Absolute Lymphs (auto) 0.5 L (1.0-4.8) 10^3/ul Absolute Monos (auto) 0.1 (0-0.8) 10^3/ul Absolute Eos (auto) 0 (0-0.6) 10^3/ul Absolute Basos (auto) 0 (0-0.2) 10^3/ul Absolute Nucleated RBC 0 10^3/ul Nucleated RBC % 0 D-Dimer, Quantitative (Less Than 230) ng/mL Sodium 136 (133-145) mmol/L Potassium 3.8 (3.5-5.0) mmol/L Chloride 103 (101-111) mmol/L Carbon Dioxide 22 (22-32) mmol/L Anion Gap 11 (2-11) mmol/L BUN 12 (6-24) mg/dL Creatinine 0.73 (0.51-0.95) mg/dL Est GFR ( Amer) 127.1 (>60) Est GFR (Non-Af Amer) 98.8 (>60) BUN/Creatinine Ratio 16.4 (8-20) Glucose 167 H (70-100) mg/dL Lactic Acid 3.5 H* (0.5-2.0) mmol/L Calcium 9.8 (8.6-10.3) mg/dL Total Bilirubin 0.40 (0.2-1.0) mg/dL AST 16 (13-39) U/L ALT 10 (7-52) U/L Alkaline Phosphatase 75 (34-104) U/L C-Reactive Protein 4.82 (< 5.00) mg/L Total Protein 7.2 (6.4-8.9) g/dL Albumin 4.2 (3.2-5.2) g/dL Globulin 3.0 (2-4) g/dL Albumin/Globulin Ratio 1.4 (1-3) Beta HCG, Quant < 0.60 mIU/mL Influenza A (Rapid) (Negative) Influenza B (Rapid) (Negative) 05/05/17 05/05/17 Range/Units 17:05 18:52 WBC (3.5-10.8) 10^3/ul RBC (4.0-5.4) 10^6/ul Hgb (12.0-16.0) g/dl Hct (35-47) % MCV (80-97) fL MCH (27-31) pg MCHC (31-36) g/dl RDW (10.5-15) % Plt Count (150-450) 10^3/ul MPV (7.4-10.4) um3 Neut % (Auto) (38-83) % Lymph % (Auto) (25-47) % [place] % (Auto) (1-9) % Eos % (Auto) (0-6) % Baso % (Auto) (0-2) % Absolute Neuts (auto) (1.5-7.7) 10^3/ul Absolute Lymphs (auto) (1.0-4.8) 10^3/ul Absolute Monos (auto) (0-0.8) 10^3/ul Absolute Eos (auto) (0-0.6) 10^3/ul Absolute Basos (auto) (0-0.2) 10^3/ul Absolute Nucleated RBC 10^3/ul Nucleated RBC % D-Dimer, Quantitative < 200 (Less Than 230) ng/mL Sodium (133-145) mmol/L Potassium (3.5-5.0) mmol/L Chloride (101-111) mmol/L Carbon Dioxide (22-32) mmol/L Anion Gap (2-11) mmol/L BUN (6-24) mg/dL Creatinine (0.51-0.95) mg/dL Est GFR ( Amer) (>60) Est GFR (Non-Af Amer) (>60) BUN/Creatinine Ratio (8-20) Glucose (70-100) mg/dL Lactic Acid (0.5-2.0) mmol/L Calcium (8.6-10.3) mg/dL Total Bilirubin (0.2-1.0) mg/dL AST (13-39) U/L ALT (7-52) U/L Alkaline Phosphatase (34-104) U/L C-Reactive Protein (< 5.00) mg/L Total Protein (6.4-8.9) g/dL Albumin (3.2-5.2) g/dL Globulin (2-4) g/dL Albumin/Globulin Ratio (1-3) Beta HCG, Quant mIU/mL Influenza A (Rapid) Negative (Negative) Influenza B (Rapid) Negative (Negative) ECG, personally reviewed: NSR rate 99, no ischemia CXR, personally reviewed: IMPRESSION: NO ACTIVE CARDIOPULMONARY DISEASE. Impression: 21F presenting with SOB of ~6months duration which responds to albuterol with a syncopal episode today and persistent sinus tachycardia DIAGNOSIS & PLAN Primary SOB, suspect asthma : albuterol/ipratropium nebs Q4H while awake, albuterol nebs Q2H PRN : IV methylprednisolone : PO azithromycin : consider pulmonology consult in AM : supplemental oxygen : supportive care sinus tachycardia, suspect dehydration : IVF hydration : telemetry syncope : suspect 2nd tackycardia & dehydration : telemetry Secondary HX urolithiasis : no acute issues Admission Rational: observation for suspected asthma exacerbation DVTp: HERMINIA Code Status: full
[2017-05-05] MEDS ORDERED: LORazepam INJ* 2 MG/ML 1 ML VIAL IV ONE (22:44)
[2017-05-05] MEDS: Albuterol/Ipratropium NEB.SOL* Albuterol 2.5 MG/Ipratropium 0.5 MG 3 ML INH SCH (23:02)
[2017-05-06] MEDS ORDERED: LORazepam INJ* 2 MG/ML 1 ML VIAL IV ONE (00:04)
[2017-05-06] MEDS: NS 0.9% 1000 ML* 1,000 ML IV SCH ×4 (00:19→21:39)
[2017-05-06] MEDS ORDERED: NS 0.9% 1000 ML* 1,000 ML IV SCH (01:00)
[2017-05-06] MEDS ORDERED: Albuterol 2.5 MG/3 ML NEB.SOL* (0.083%) INH SCH (01:00)
[2017-05-06] MEDS ORDERED: NS 0.9% 1000 ML* 1,000 ML IV ONE (02:00)
[2017-05-06] MEDS: methylPREDNISolone SOD 40 MG* 1 ML VIAL IV SCH ×3 (02:25→19:09)
[2017-05-06 03:16] LABS: Urine Appearance Clear; Urine Blood Negative (Negative); Urine Color Straw; Urine Ketones Negative (Negative); Urine Protein Negative (Negative); Urine Urobilinogen Negative (Negative)
[2017-05-06] MEDS: Albuterol/Ipratropium NEB.SOL* Albuterol 2.5 MG/Ipratropium 0.5 MG 3 ML INH SCH ×3 (03:41→12:07)
[2017-05-06] MEDS: Omeprazole CAP* 20 MG PO SCH (06:35)
[2017-05-06 06:57] LABS: ABS Basophils 0 10^3/ul (0-0.2); ABS Eosinophils 0 10^3/ul (0-0.6); ABS Lymphocytes 0.8 10^3/ul (1.0-4.8); ABS Monocytes 0.2 10^3/ul (0-0.8); ABS Neutrophils 9.5 10^3/ul (1.5-7.7); ABS Nucleated RBC 0 10^3/ul; Eosinophil % 0 % (0-6); Hematocrit 32 % (35-47); Hemoglobin 10.8 g/dl (12.0-16.0); Lymphocyte % 7.4 % (25-47); Mean Corpuscular HGB Conc 34 g/dl (31-36); Mean Corpuscular Hemoglobin 30 pg (27-31); Mean Corpuscular Volume 87 fL (80-97); Mean Platelet Volume 8 um3 (7.4-10.4); Nucleated Red Blood Cells % 0; Platelet Count 257 10^3/ul (150-450); Red Blood Count 3.64 10^6/ul (4.0-5.4); Red Cell Distribution Width 14 % (10.5-15); White Blood Count 10.5 10^3/ul (3.5-10.8)
[2017-05-06 07:11] LABS: EGFR Non-African American 152.9 (>60)
--- NOTE | 2017-05-06 11:59 | PN ---
Subjective Date of Service: 05/06/17 Interval History: Patient seen and examined. Crying, wants to go home. States she does not want to stay to see exercise scientist. Explained it would be prudent to stay and be evaluated, as the recommendation was for her to see pulmonology as an outpatient after last discharge and she did not. Patient states she has been SOB throughout the day with increasing severity, night time wakings with cough. Currently feels wheezy and SOB with persistent cough and extreme fatigue. Objective Active Medications: Acetaminophen (Tylenol Tab*) 650 mg PO Q6H PRN PRN Reason: FEVER/PAIN Albuterol (Ventolin 2.5 Mg/3 Ml Neb.Teresa*) 2.5 mg INH Q2H PRN PRN Reason: SOB/WHEEZING Albuterol/Ipratropium (Duoneb (Albuterol 2.5 Mg/Ipratropium 0.5 Mg)) 1 neb INH [id number] AWAKE [facility] Last Admin: 05/06/17 07:56 Dose: 1 neb Azithromycin (Zithromax Tab*) 500 mg PO DAILY [facility] Stop: 05/09/17 09:01 Sodium Chloride (Ns 0.9% 1000 Ml*) 1,000 mls @ 125 mls/hr IV PER RATE [facility] Last Admin: 05/06/17 04:01 Dose: 125 mls/hr Melatonin (Melatonin (Nf)) 3 mg PO BEDTIME PRN; Protocol PRN Reason: Sleep Methylprednisolone Sodium Succinate (Solu-Medrol 40 Mg) 40 mg IV Q8H [facility] Last Admin: 05/06/17 09:42 Dose: 40 mg Omeprazole (Prilosec Cap*) 20 mg PO DAILY@0600 [facility] Last Admin: 05/06/17 06:35 Dose: 20 mg Ondansetron HCl (Zofran Inj*) 4 mg IV Q6H PRN PRN Reason: NAUSEA Vital Signs - 8 hr 05/06/17 05/06/17 05/06/17 07:21 07:59 08:00 Temperature 98.5 F Pulse Rate 94 101 Respiratory 18 14 20 Rate Blood Pressure 110/47 (mmHg) O2 Sat by Pulse 97 96 Oximetry Oxygen Devices in Use Now: None, Nasal Cannula - 2L Appearance: Sleepy, tearful, distressed Ears/Nose/Mouth/Throat: NL Teeth, Lips, Gums, Mucous Membranes Moist Neck: NL Appearance and Movements; NL JVP, Trachea Midline Respiratory: Symmetrical Chest Expansion and Respiratory Effort, - - bilateral insp and exp wheeze with course breath sounds Cardiovascular: NL Sounds; No Murmurs; No JVD - tachycardia Abdominal: NL Sounds; No Tenderness; No Distention Extremities: No Edema, No Clubbing, Cyanosis Skin: No Rash or Ulcers Neurological: Alert and Oriented x 3 Nutrition: Taking PO's Result Diagrams: 05/06/17 06:00 05/06/17 06:00 Diagnostic Imaging: Patient Name: NYASIA YING Medical Record#: [id number] Ordering Physician: Jerrell Aquino MD Acct.#: [id number] : 1995 Age: 21 Sex: F Location: EMERGENCY DEPARTMENT Exam Date: 05/05/17 1640 ADM Status: REG ER Order Information: CHEST PA & LAT 2 VWS Accession Number: [id number] CPT: 55397 HISTORY: Shortness of breath COMPARISONS: April 13, 2017 VIEWS: 2: Frontal and lateral views of the chest. FINDINGS: CARDIOMEDIASTINAL SILHOUETTE: The cardiomediastinal silhouette is normal. VIRGIE: The virgie are normal. PLEURA: The costophrenic angles are sharp. No pleural abnormalities are noted. LUNG PARENCHYMA: The lungs are clear. ABDOMEN: The upper abdomen is clear. There is no subphrenic gas. BONES AND SOFT TISSUES: No bone or soft tissue abnormalities are noted. OTHER: None. IMPRESSION: NO ACTIVE CARDIOPULMONARY DISEASE. <Electronically signed by Oscar Guerra MD in OV> 05/05/171818 Dictated By: Oscar Guerra MD Dictated Date/Time: 05/05/171818 Transcribed Date/Time: 05/05/171818 Copy to: CC:Lali Keith [employer]; Jerrell Aquino MD Imaging - [facility] Imaging - [place] [facility] Imaging [facility] [address] [place] [address] ph ([phone]) ph ([phone]) ph ([phone]) 1 of 1 Assess/Plan/Problems-Billing Assessment: This is a 21 year old female with multiple ER visits for SOB since last October that likely has untreated moderate to severe persistent asthma that is now clinically SOB with wheeze and poor air exchange requiring IV steroids and pulmonology consult. - Patient Problems (1) SOB (shortness of breath) Code(s): R06.02 - SHORTNESS OF BREATH SNOMED Code(s): 941443272 Comment: - Given constellation of daily symtoms, nightly cough/waking (almost every night last two weeks) and disruption of daily activity/exercise intolerance, patient likely has moderate to severe persistent asthma - Peak Flow ordered - Received solumedrol 125mg in ER and is on 40 Q8H - Neb treatments Q6h - Azithromycin 500x 5 days - Dr. Garcia consulted (2) Leukocytosis Code(s): D72.829 - ELEVATED WHITE BLOOD CELL COUNT, UNSPECIFIED SNOMED Code(s) : 091144986 Comment: - [place] 2/2 steroids - Monitor, no fever (3) Glucosuria Code(s): R81 - GLYCOSURIA SNOMED Code(s): 70906465 Comment: - Likely 2/2 steroids - Monitor Status and Disposition: Remain inpatient. Counseling and/or Coordination of Care Minutes: Coordinated with patient, RN and CM.
[2017-05-06] MEDS ORDERED: Magnesium Sulfate 1 GM IV* 1 GM/100 ML BAG IV ONE (12:10)
[2017-05-06] MEDS ORDERED: Albuterol 2.5 MG/3 ML NEB.SOL* (0.083%) INH PRN (13:11)
--- NOTE | 2017-05-06 16:21 | ED ---
Yovani Almeida Nikita, scribed for Jerrell Aquino MD on 05/05/17 at 1702 . Shortness of Breath - HPI Summary HPI Summary: This patient is a 21 year old F presenting to ED with a chief complaint of SOB since October 2016. The patient rates the pain 5/10 in severity. Symptoms aggravated by coughing. Symptoms alleviated by nothing. Patient reports productive coughing followed up inability to breathe. Pt denies chills, fever. She stopped contraceptives months ago. - History of Current Complaint Chief Complaint: EDShortnessOfBreath Time Seen by Provider: 05/05/17 16:17 Hx Obtained From: Patient Onset/Duration: Gradual Onset, Lasting Weeks, Still Present Timing: Constant Current Severity: Moderate - 5/10 Aggrevating Factors: Other - coughing Alleviating Factors: Nothing Associated Signs & Symptoms: Cough (Productive) - Allergy/Home Medications Allergies/Adverse Reactions: Allergies Allergy/AdvReac Type Severity Reaction Status Date / Time No Known Allergies Allergy Verified 05/05/17 20:30 PMH/Surg Hx/FS Hx/Imm Hx Endocrine/Hematology History: Denies: Hx Anticoagulant Therapy, Hx Diabetes Cardiovascular History: Denies: Hx Hypertension, Hx Myocardial Infarction Respiratory History: Reports: Hx Asthma - JUST DIAGNOSED, Other Respiratory Problems/Disorders - HX OF PNEUMONIA Denies: Hx Chronic Obstructive Pulmonary Disease (COPD) GI History: Denies: Hx Ulcer History: Reports: Hx Kidney Stones - BILATERAL, MANY TIMES Musculoskeletal History: Denies: Hx Rheumatoid Arthritis Psychiatric History: Reports: Hx Depression Denies: Hx Eating Disorder, Hx of Violent Episodes Against Others - Surgical History Surgery Procedure, Year, and Place: MULTIPLE KIDNEY STONE REMOVALS AND STENT PLACMENTS Infectious Disease History: No Infectious Disease History: Denies: Hx Clostridium Difficile, Hx Hepatitis, Hx Human Immunodeficiency Virus (HIV), Hx of Known/Suspected MRSA, Hx Shingles, Hx Tuberculosis, Hx Known/ Suspected VRE, Hx Known/Suspected VRSA, History Other Infectious Disease, Traveled Outside the [place] in Last 30 Days - Family History Known Family History: Positive: None - Noncontributory, Respiratory Disease Negative: Cardiac Disease, Hypertension, Diabetes - Social History Alcohol Use: Rare Hx Substance Use: No Substance Use Type: Reports: None Hx Tobacco Use: No Smoking Status (MU): Former Smoker Type: Cigarettes Review of Systems Negative: Fever, Chills Positive: Shortness Of Breath, Cough All Other Systems Reviewed And Are Negative: Yes Physical Exam - Summary Physical Exam Summary: VITAL SIGNS: Reviewed. GENERAL: ~Patient is a well-developed and nourished female who is lying comfortable in the stretcher. ~Patient is not in any acute respiratory distress. HEAD AND FACE: No signs of trauma. ~No ecchymosis, hematomas or skull depressions. No sinus tenderness. EYES: PERRLA, EOMI x 2, No injected conjunctiva, no nystagmus. EARS: Hearing grossly intact. Ear canals and tympanic membranes are within normal limits. MOUTH: Oropharynx within normal limits. NECK: Supple, trachea is midline, no adenopathy, no JVD, no carotid bruit, no c- spine tenderness, neck with full ROM. CHEST: Symmetric, no tenderness at palpation LUNGS: Bilateral wheezing. CVS: Tachycardic. S1 and S2 present, no murmurs or gallops appreciated. ABDOMEN: Soft, non-tender. No signs of distention. No rebound no guarding, and no masses palpated. Bowel sounds are normal. EXTREMITIES: FROM in all major joints, no edema, no cyanosis or clubbing. NEURO: Alert and oriented x 3. No acute neurological deficits. Speech is normal and follows commands. SKIN: Dry and warm Triage Information Reviewed: Yes Vital Signs On Initial Exam: Initial Vitals Temp Pulse Resp BP Pulse Ox 97.5 F 120 18 119/72 97 05/05/17 15:49 05/05/17 15:49 05/05/17 15:49 05/05/17 15:49 05/05/17 15:49 Vital Signs Reviewed: Yes Diagnostics - Vital Signs Vital Signs Temp Pulse Resp BP Pulse Ox 05/05/17 15:49 97.5 F 120 18 119/72 97 - Laboratory Lab Results: Lab Results 05/05/17 05/05/17 05/05/17 Range/Units 17:05 17:05 17:05 WBC 11.6 H (3.5-10.8) 10^3/ul RBC 4.62 (4.0-5.4) 10^6/ul Hgb 13.5 (12.0-16.0) g/dl Hct 39 (35-47) % MCV 85 (80-97) fL MCH 29 (27-31) pg MCHC 35 (31-36) g/dl RDW 14 (10.5-15) % Plt Count 320 (150-450) 10^3/ul MPV 8 (7.4-10.4) um3 Neut % (Auto) 94.7 H (38-83) % Lymph % (Auto) 4.3 L (25-47) % [place] % (Auto) 0.9 L (1-9) % Eos % (Auto) 0 (0-6) % Baso % (Auto) 0.1 (0-2) % Absolute Neuts (auto) 10.9 H (1.5-7.7) 10^3/ul Absolute Lymphs (auto) 0.5 L (1.0-4.8) 10^3/ul Absolute Monos (auto) 0.1 (0-0.8) 10^3/ul Absolute Eos (auto) 0 (0-0.6) 10^3/ul Absolute Basos (auto) 0 (0-0.2) 10^3/ul Absolute Nucleated RBC 0 10^3/ul Nucleated RBC % 0 D-Dimer, Quantitative (Less Than 230) ng/mL Sodium 136 (133-145) mmol/L Potassium 3.8 (3.5-5.0) mmol/L Chloride 103 (101-111) mmol/L Carbon Dioxide 22 (22-32) mmol/L Anion Gap 11 (2-11) mmol/L BUN 12 (6-24) mg/dL Creatinine 0.73 (0.51-0.95) mg/dL Est GFR ( Amer) 127.1 (>60) Est GFR (Non-Af Amer) 98.8 (>60) BUN/Creatinine Ratio 16.4 (8-20) Glucose 167 H (70-100) mg/dL Lactic Acid 3.5 H* (0.5-2.0) mmol/L Calcium 9.8 (8.6-10.3) mg/dL Total Bilirubin 0.40 (0.2-1.0) mg/dL AST 16 (13-39) U/L ALT 10 (7-52) U/L Alkaline Phosphatase 75 (34-104) U/L C-Reactive Protein 4.82 (< 5.00) mg/L Total Protein 7.2 (6.4-8.9) g/dL Albumin 4.2 (3.2-5.2) g/dL Globulin 3.0 (2-4) g/dL Albumin/Globulin Ratio 1.4 (1-3) Beta HCG, Quant < 0.60 mIU/mL Influenza A (Rapid) (Negative) Influenza B (Rapid) (Negative) 05/05/17 05/05/17 Range/Units 17:05 18:52 WBC (3.5-10.8) 10^3/ul RBC (4.0-5.4) 10^6/ul Hgb (12.0-16.0) g/dl Hct (35-47) % MCV (80-97) fL MCH (27-31) pg MCHC (31-36) g/dl RDW (10.5-15) % Plt Count (150-450) 10^3/ul MPV (7.4-10.4) um3 Neut % (Auto) (38-83) % Lymph % (Auto) (25-47) % [place] % (Auto) (1-9) % Eos % (Auto) (0-6) % Baso % (Auto) (0-2) % Absolute Neuts (auto) (1.5-7.7) 10^3/ul Absolute Lymphs (auto) (1.0-4.8) 10^3/ul Absolute Monos (auto) (0-0.8) 10^3/ul Absolute Eos (auto) (0-0.6) 10^3/ul Absolute Basos (auto) (0-0.2) 10^3/ul Absolute Nucleated RBC 10^3/ul Nucleated RBC % D-Dimer, Quantitative < 200 (Less Than 230) ng/mL Sodium (133-145) mmol/L Potassium (3.5-5.0) mmol/L Chloride (101-111) mmol/L Carbon Dioxide (22-32) mmol/L Anion Gap (2-11) mmol/L BUN (6-24) mg/dL Creatinine (0.51-0.95) mg/dL Est GFR ( Amer) (>60) Est GFR (Non-Af Amer) (>60) BUN/Creatinine Ratio (8-20) Glucose (70-100) mg/dL Lactic Acid (0.5-2.0) mmol/L Calcium (8.6-10.3) mg/dL Total Bilirubin (0.2-1.0) mg/dL AST (13-39) U/L ALT (7-52) U/L Alkaline Phosphatase (34-104) U/L C-Reactive Protein (< 5.00) mg/L Total Protein (6.4-8.9) g/dL Albumin (3.2-5.2) g/dL Globulin (2-4) g/dL Albumin/Globulin Ratio (1-3) Beta HCG, Quant mIU/mL Influenza A (Rapid) Negative (Negative) Influenza B (Rapid) Negative (Negative) Result Diagrams: 05/06/17 06:00 05/06/17 06:00 Lab Statement: Any lab studies that have been ordered have been reviewed, and results considered in the medical decision making process. - EKG 1700 Cardiac Rate: NL EKG Rhythm: Sinus Tachycardia - 117 BPM EKG Interpretation: No ST elevation, normal axis. Course/Dx - Course Assessment/Plan: This patient is a 21 year old F presenting to ED with a chief complaint of SOB since October 2016 .Test results are without significant abnormalities except for WBC of 11.6, D-dimer was less than 200 thus I have no suspicion for a PE. Pt was given Xopenex since she is tachycardic. The pt is hemodynamically stable, alert and oriented x3. Consulted Dr. Rocha at 1850 who accepts pt for admission. - Diagnoses Differential Diagnosis/HQI/PQRI: Positive: Airway Obstruction, Asthma, Bronchitis, CHF, Chest Wall Pain, COPD Exacerbation, Other - Asthma exacerbation Provider Diagnoses: Asthma exacerbation - Physician Notifications Discussed Care of Patient With: Rakesh Rocha Time Discussed With Above Provider: 18:50 Instructed by Provider To: Other - Consulted Dr. Rocha at 1850 who accepts pt for admission. Discharge - Discharge Plan Condition: Stable Disposition: ADMITTED TO [facility] The documentation as recorded by the Yovani parham Nikita accurately reflects the service I personally performed and the decisions made by , Jerrell Aquino MD.
[2017-05-06] MEDS: Azithromycin TAB* 250 MG PO SCH (19:08)
[2017-05-06] MEDS ORDERED: Benzocaine/Menthol LOZ* 1 LOZENGE PO PRN (19:38)
[2017-05-06] MEDS ORDERED: Ketorolac INJ* 15 MG/ML 1 ML VIAL IV PUSH ONE (20:01)
[2017-05-06] MEDS: CMCS: Melatonin (NF) 3 MG TAB PO PRN (21:46)
--- NOTE | 2017-05-07 00:13 | CONS ---
PULMONARY CONSULTATION REPORT: DATE OF CONSULTATION: 05/06/17 CONSULTATION REQUESTED BY: Pita Wheatley NP REASON FOR CONSULTATION: Evaluation of shortness of breath. HISTORY OF PRESENT ILLNESS: The patient is a 21-year-old female who presents with worsening shortness of breath. The patient reports that her symptoms started in October 2016 after she had URI symptoms that resulted in persistent shortness of breath. The patient reports history of cold/bronchitis that happen once a year for her. Symptoms have been persistent since October. She was seen by primary care, has been seen in the emergency room for shortness of breath. The patient's symptoms are very vague in her description. She reports that she just cannot get enough air and she has shortness of breath all the time. The patient reports that she uses her albuterol inhaler and nebulizer very often, sometimes every hour. The patient reports that she passed out when she was in the shower and hit her head and believes that she was out for more than 15 minutes. The patient reports episodes of nausea and small volumes of emesis after coughing spells. The patient reports that her cough is mostly dry in nature. She denies fevers, chills, sweats, diarrhea, chest pain, palpitations. She does have history of kidney stones and pyelonephritis in the past. She was found to be having wheezing on auscultation and was started on treatment for bronchitis/asthma exacerbation. The patient did have mildly elevated white count upon admission, which normalized. She did not have elevated eosinophils in the blood. Her LFTs were within normal limits. CRP was within normal limits. Lactic acid was elevated, which was trending down likely secondary to beta-agonist. Her urine drug screen was positive for opiates. Influenza A and B was negative. The patient had chest x-ray performed in emergency room. I have personally reviewed the images and no suspicious air space opacities were noted. Clear lung medina. The patient is currently on GERD therapy, started on Solu-Medrol 40 mg q.8 hours, and was also started on Zithromax for empiric coverage. The patient reports mild improvement in her breathing. She became significantly short of breath; however, when she walked around in the hallway. The patient did not have PFTs in the past. She denies personal history of asthma. She reports she has smoked in the past, has secondhand smoke exposure. The patient reports significant cough and shortness of breath post exposure to smoke. The patient had an episode of SVT as per RN. The patient received 1 g of magnesium with improvement in heart rate and shortness of breath. She is using albuterol a lot. PAST MEDICAL HISTORY: 1. Urolithiasis and obstructing stents. 2. Pyelonephritis. MEDICATIONS: 1 Albuterol. PAST SURGICAL HISTORY: Lithotripsy, cystoscopy, ureteral stent. ALLERGIES: No known drug allergies. FAMILY HISTORY: Urolithiasis in mother. SOCIAL HISTORY: Denies recent tobacco abuse, smoked for a few years in the past. No alcohol or recreational drugs as per the patient; however, urine drug screen positive for opiates. REVIEW OF SYSTEMS: All 14 systems reviewed as per HPI. PHYSICAL EXAM: The patient is in bed, in no apparent distress, ex-boyfriend at bedside. Vital Signs: Temperature 98.1, pulse 102 beats per minute, respiratory rate 18 per minute, O2 sat 95% on 2 L, blood pressure 113/55. HEENT : Pupils equal, reactive to light. Mucous membranes moist. Neck: Supple. No JVD. Cardiovascular: S1, S2 present. Tachycardic. Respiratory: Good air entry bilaterally. No accessory muscle usage. Abdomen: Soft, nontender, nondistended. Bowel sounds present. Musculoskeletal: Normal range of motion. Skin: No rash or bruits. DIAGNOSTIC STUDIES/LAB DATA: WBC count was normal at 10.5, hemoglobin 10.8, hematocrit 32, platelet count of 257,000. Normal sodium and potassium and other electrolytes with elevated lactate secondary to beta-agonist. LFTs within normal limits. CRP within normal limits. Drug screen positive for opiates. Influenza A and B negative. Chest x-ray as described above in HPI. IMPRESSION/RECOMMENDATIONS: 21-year-old female with no significant past medical history, has been having issues with shortness of breath since October, was diagnosed with reactive airways disease and was started on bronchodilators. She has not been given maintenance inhaler. Her symptoms have been recurrent and I do not suspect any other etiology for shortness of breath other than reactive airways disease/asthma. She did have expiratory rhonchi on auscultation today. No evidence of pneumonia on chest x-ray. She needs to be compliant with maintenance inhaler and use rescue inhaler limitedly only as needed. She denies drug use; however, she was positive for opiates in her urine. She also had episodes of supraventricular tachycardia with short runs that improved with magnesium. Would continue monitoring overnight for shortness of breath symptoms or the supraventricular tachycardia symptoms. She should have a walk test tomorrow to evaluate O2 need and also her breathing prior to discharge, and she would be discharged on the slow prednisone taper. Thank you for allowing me to participate in the care of your patient. Will follow up with you. [id number]/[facility] #: [id number] ZENA
[2017-05-07] MEDS: methylPREDNISolone SOD 40 MG* 1 ML VIAL IV SCH ×3 (02:18→17:03)
[2017-05-07] MEDS: Omeprazole CAP* 20 MG PO SCH (05:07)
[2017-05-07] MEDS: traMADol TAB* 50 MG PO PRN ×3 (05:07→21:28)
[2017-05-07] MEDS: Azithromycin TAB* 250 MG PO SCH (08:34)
--- NOTE | 2017-05-07 10:40 | ECHO ---
Patient: NYASIA YING [facility] Rec#: [id number] : 1995 Date: 05/07/2017 Age: 21y Height: 154.94 cm / 61.0 in Weight: 53.98 kg / 119.0 lbs Sex: F BSA: 1.52 Room#: [facility] Admit Date#: 05/05/2017 Type: Inpatient Referring: Pita Jenkins Reading: Mike Rubio MD Tint Layer: Katie Trivedi RDCS CC: Lali Keith NP Transthoracic Echocardiogram Indication: Shortness of breath, SVT BP: 118/67 HR: 49 Rhythm: Bradycardia Findings History: Former smoker. Technical Comments: The study quality is good. Completed at 1030. Left Ventricle: The left ventricular chamber size is normal. There is no left ventricular hypertrophy. Left ventricular systolic function is at the lower limits of normal. The estimated ejection fraction is 50-55%. Normal left ventricular diastolic filling is observed. Left Atrium: The left atrial chamber size is normal. Right Ventricle: Moderator Band present. The right ventricular cavity size is normal. The right ventricular global systolic function is normal. Right Atrium: The right atrial cavity size is normal. A prominent eustachian valve is noted in the right atrium. Aortic Valve: The aortic valve is trileaflet. There is no evidence of aortic valve thickening. There is no evidence of aortic regurgitation. There is no evidence of aortic stenosis. Mitral Valve: The mitral valve leaflets are mildly thickened. There is prolapse of the anterior leaflet of the mitral valve. There is moderate mitral regurgitation. The mitral regurgitant jet is eccentric. There is no evidence of mitral stenosis. Tricuspid Valve: The tricuspid valve leaflets are normal. There is a physiologic tricuspid regurgitation. Unable to estimate the right ventricular systolic pressure. There is no tricuspid stenosis. Pulmonic Valve: The pulmonic valve appears normal. There is a trace pulmonic regurgitation. There is no pulmonic stenosis. Pericardium: There is no significant pericardial effusion. Aorta: There is no dilatation of the ascending aorta. There is no dilatation of the aortic arch. The aortic root is normal in size. Pulmonary Artery: The main pulmonary artery appears normal. Venous: The inferior vena cava appears normal in size. There is less than 50% respiratory change in the inferior vena cava dimension. Summary: There was not any prior study for comparison. Conclusions Left ventricular systolic function is at the lower limits of normal. The estimated ejection fraction is 50-55%. The right ventricular global systolic function is normal. There is no evidence of aortic stenosis. There is prolapse of the anterior leaflet of the mitral valve. There is moderate mitral regurgitation. The mitral regurgitant jet is eccentric. There is a physiologic tricuspid regurgitation. Unable to estimate the right ventricular systolic pressure. There is no significant pericardial effusion. Measurements Name Value Normal Range RVIDd (AP) 2D 2.6 cm (0.9 - 2.6) RVDdMajor (2D) 2.9 cm (2.2 - 4.4) RAd ISD 4CH 3.6 cm (3.4 - 4.9) RA (A4C)W 2.7 cm (2.9 - 4.6) IVSd (2D) 0.8 cm (0.6 - 1) LVPWd (2D) 0.8 cm (0.6 - 1) LVIDd (2D) 4.6 cm (3.6 - 5.4) LVIDs (2D) 3.6 cm - LV FS (2D) 22 % (25 - 45) Aortic Annulus 1.8 cm (1.4 - 2.6) Ao root diameter (2D) 2.6 cm (2.1 - 3.5) Ascending Ao 2.4 cm (2.1 - 3.4) Aortic arch 1.8 cm (1.8 - 3.4) LA dimension (AP) 2D 3.3 cm (2.3 - 3.8) LAd ISD 4CH 4 cm (2.9 - 5.3) LA ISD 4CH W 3.8 cm (2.5 - 4.5) Name Value Normal Range LA ESV SP 4CH (A/L) 40 ml - LA ESV SP 2CH (A/L) 42 ml - LA ESV BP (A/L) 43 ml - LA ESV BP (A/L) index 29 ml/m2 - LA ESV SP 4CH (MOD) 34 ml - LA ESV SP 2CH (MOD) 39 ml - Name Value Normal Range MV E-wave Vmax 1.11 m/sec - MV deceleration time 113.6 msec - MV A-wave Vmax 0.24 m/sec - MV E:A ratio 4.61 ratio - LV septal e' Vmax 0.14 m/sec - LV lateral e' Vmax 0.16 m/sec - LV E:e' septal ratio 7.93 ratio - LV E:e' lateral ratio 6.94 ratio - Name Value Normal Range AV Vmax 1.1 m/sec - AV VTI 23.75 cm - AV peak gradient 4.99 mmHg - AV mean gradient 2.83 mmHg - LVOT Vmax 0.76 m/sec - LVOT VTI 17.04 cm - LVOT peak gradient 2.34 mmHg - LVOT mean gradient 1.46 mmHg - RADHA Vmax 1.04 m/sec - Name Value Normal Range MR Vmax 5.8 m/sec - MR VTI 234.7 cm - MR flow (PISA) 30.8 ml/sec - MR ERO 0.05 cm2 - MR PISA radius 0.4 cm - MR alias Vmax 37.1 cm/sec - Name Value Normal Range IVC diameter 1.4 cm - Name Value Normal Range PV Vmax 0.71 m/sec - PV peak gradient 2.02 mmHg -
[2017-05-07] MEDS: oxyCODONE/Acetamin 5/325 MG* TAB PO PRN ×3 (10:50→23:01)
[2017-05-07 11:30] LABS: ABS Basophils 0 10^3/ul (0-0.2); ABS Eosinophils 0 10^3/ul (0-0.6); ABS Lymphocytes 1.2 10^3/ul (1.0-4.8); ABS Monocytes 0.3 10^3/ul (0-0.8); ABS Neutrophils 12.1 10^3/ul (1.5-7.7); ABS Nucleated RBC 0 10^3/ul; Eosinophil % 0 % (0-6); Hematocrit 34 % (35-47); Hemoglobin 11.2 g/dl (12.0-16.0); Lymphocyte % 8.8 % (25-47); Mean Corpuscular HGB Conc 33 g/dl (31-36); Mean Corpuscular Hemoglobin 29 pg (27-31); Mean Corpuscular Volume 88 fL (80-97); Mean Platelet Volume 8 um3 (7.4-10.4); Nucleated Red Blood Cells % 0; Platelet Count 297 10^3/ul (150-450); Red Blood Count 3.84 10^6/ul (4.0-5.4); Red Cell Distribution Width 14 % (10.5-15); White Blood Count 13.6 10^3/ul (3.5-10.8)
[2017-05-07 12:05] LABS: EGFR Non-African American 121.5 (>60)
[2017-05-07] MEDS: NS 0.9% 1000 ML* 1,000 ML IV SCH ×2 (14:39→22:57)
--- NOTE | 2017-05-07 19:39 | PN ---
Subjective Date of Service: 05/07/17 Interval History: Patient seen and examined. Mother at bedside, Megan, gutter hanger also at bedside for evaluation. Patient had multiple episodes of tachycardia, bradycardia and arrhythmias overnight with SOB and continued back and chest pain. Afebrile, refused labs again initially, able to draw off IV lock with some convincing. Plan for cardiac ECHO. Also making statements that she wants to leave the hospital and "go home and ". Objective Active Medications: Acetaminophen (Tylenol Tab*) 650 mg PO Q6H PRN PRN Reason: FEVER/PAIN Last Admin: 05/06/17 21:36 Dose: 650 mg Albuterol (Ventolin 2.5 Mg/3 Ml Neb.Teresa*) 2.5 mg INH Q4H PRN PRN Reason: SOB/WHEEZING Azithromycin (Zithromax Tab*) 500 mg PO DAILY [facility] Stop: 05/09/17 09:01 Last Admin: 05/07/17 08:34 Dose: 500 mg Sodium Chloride (Ns 0.9% 1000 Ml*) 1,000 mls @ 125 mls/hr IV PER RATE [facility] Last Admin: 05/07/17 14:39 Dose: 125 mls/hr Melatonin (Melatonin (Nf)) 3 mg PO BEDTIME PRN; Protocol PRN Reason: Sleep Last Admin: 05/06/17 21:46 Dose: 3 mg Methylprednisolone Sodium Succinate (Solu-Medrol 40 Mg) 40 mg IV Q8H [facility] Last Admin: 05/07/17 17:03 Dose: 40 mg Omeprazole (Prilosec Cap*) 20 mg PO DAILY@0600 [facility] Last Admin: 05/07/17 05:07 Dose: 20 mg Ondansetron HCl (Zofran Inj*) 4 mg IV Q6H PRN PRN Reason: NAUSEA Oxycodone/Acetaminophen (Percocet 5/325 Tab*) 1 tab PO Q6H PRN PRN Reason: PAIN Last Admin: 05/07/17 17:02 Dose: 1 tab Throat Lozenges (Chloraseptic Madan*) 1 madan PO Q6H PRN PRN Reason: SORE THROAT Last Admin: 05/06/17 21:35 Dose: 1 madan Tramadol HCl (Ultram*) 50 mg PO Q6H PRN PRN Reason: PAIN Last Admin: 05/07/17 14:39 Dose: 50 mg Vital Signs - 8 hr 05/07/17 05/07/17 05/07/17 12:13 14:39 15:11 Temperature 97.8 F Pulse Rate 56 57 Respiratory 18 20 20 Rate Blood Pressure 136/75 (mmHg) O2 Sat by Pulse 98 100 Oximetry 05/07/17 05/07/17 15:13 17:02 Temperature Pulse Rate Respiratory 22 18 Rate Blood Pressure (mmHg) O2 Sat by Pulse Oximetry Oxygen Devices in Use Now: None Appearance: tearful, anxious Ears/Nose/Mouth/Throat: NL Teeth, Lips, Gums, Mucous Membranes Moist Neck: NL Appearance and Movements; NL JVP, Trachea Midline Respiratory: Symmetrical Chest Expansion and Respiratory Effort, Clear to Auscultation Cardiovascular: NL Sounds; No Murmurs; No JVD, RRR Abdominal: NL Sounds; No Tenderness; No Distention Extremities: No Edema, No Clubbing, Cyanosis Skin: No Rash or Ulcers Neurological: Alert and Oriented x 3, NL Sensation Nutrition: Taking PO's, - - poor appetite Result Diagrams: 05/07/17 11:08 05/07/17 11:08 Additional Lab and Data: Lab Results 05/05/17 05/05/17 05/05/17 Range/Units 17:05 17:05 17:05 WBC 11.6 H (3.5-10.8) 10^3/ul RBC 4.62 (4.0-5.4) 10^6/ul Hgb 13.5 (12.0-16.0) g/dl Hct 39 (35-47) % MCV 85 (80-97) fL MCH 29 (27-31) pg MCHC 35 (31-36) g/dl RDW 14 (10.5-15) % Plt Count 320 (150-450) 10^3/ul MPV 8 (7.4-10.4) um3 Neut % (Auto) 94.7 H (38-83) % Lymph % (Auto) 4.3 L (25-47) % Lake % (Auto) 0.9 L (1-9) % Eos % (Auto) 0 (0-6) % Baso % (Auto) 0.1 (0-2) % Absolute Neuts (auto) 10.9 H (1.5-7.7) 10^3/ul Absolute Lymphs (auto) 0.5 L (1.0-4.8) 10^3/ul Absolute Monos (auto) 0.1 (0-0.8) 10^3/ul Absolute Eos (auto) 0 (0-0.6) 10^3/ul Absolute Basos (auto) 0 (0-0.2) 10^3/ul Absolute Nucleated RBC 0 10^3/ul Nucleated RBC % 0 D-Dimer, Quantitative (Less Than 230) ng/mL Sodium 136 (133-145) mmol/L Potassium 3.8 (3.5-5.0) mmol/L Chloride 103 (101-111) mmol/L Carbon Dioxide 22 (22-32) mmol/L Anion Gap 11 (2-11) mmol/L BUN 12 (6-24) mg/dL Creatinine 0.73 (0.51-0.95) mg/dL Est GFR ( Amer) 127.1 (>60) Est GFR (Non-Af Amer) 98.8 (>60) BUN/Creatinine Ratio 16.4 (8-20) Glucose 167 H (70-100) mg/dL Lactic Acid 3.5 H* (0.5-2.0) mmol/L Calcium 9.8 (8.6-10.3) mg/dL Total Bilirubin 0.40 (0.2-1.0) mg/dL AST 16 (13-39) U/L ALT 10 (7-52) U/L Alkaline Phosphatase 75 (34-104) U/L C-Reactive Protein 4.82 (< 5.00) mg/L Total Protein 7.2 (6.4-8.9) g/dL Albumin 4.2 (3.2-5.2) g/dL Globulin 3.0 (2-4) g/dL Albumin/Globulin Ratio 1.4 (1-3) Beta HCG, Quant < 0.60 mIU/mL Influenza A (Rapid) (Negative) Influenza B (Rapid) (Negative) 05/05/17 05/05/17 Range/Units 17:05 18:52 WBC (3.5-10.8) 10^3/ul RBC (4.0-5.4) 10^6/ul Hgb (12.0-16.0) g/dl Hct (35-47) % MCV (80-97) fL MCH (27-31) pg MCHC (31-36) g/dl RDW (10.5-15) % Plt Count (150-450) 10^3/ul MPV (7.4-10.4) um3 Neut % (Auto) (38-83) % Lymph % (Auto) (25-47) % Lake % (Auto) (1-9) % Eos % (Auto) (0-6) % Baso % (Auto) (0-2) % Absolute Neuts (auto) (1.5-7.7) 10^3/ul Absolute Lymphs (auto) (1.0-4.8) 10^3/ul Absolute Monos (auto) (0-0.8) 10^3/ul Absolute Eos (auto) (0-0.6) 10^3/ul Absolute Basos (auto) (0-0.2) 10^3/ul Absolute Nucleated RBC 10^3/ul Nucleated RBC % D-Dimer, Quantitative < 200 (Less Than 230) ng/mL Sodium (133-145) mmol/L Potassium (3.5-5.0) mmol/L Chloride (101-111) mmol/L Carbon Dioxide (22-32) mmol/L Anion Gap (2-11) mmol/L BUN (6-24) mg/dL Creatinine (0.51-0.95) mg/dL Est GFR ( Amer) (>60) Est GFR (Non-Af Amer) (>60) BUN/Creatinine Ratio (8-20) Glucose (70-100) mg/dL Lactic Acid (0.5-2.0) mmol/L Calcium (8.6-10.3) mg/dL Total Bilirubin (0.2-1.0) mg/dL AST (13-39) U/L ALT (7-52) U/L Alkaline Phosphatase (34-104) U/L C-Reactive Protein (< 5.00) mg/L Total Protein (6.4-8.9) g/dL Albumin (3.2-5.2) g/dL Globulin (2-4) g/dL Albumin/Globulin Ratio (1-3) Beta HCG, Quant mIU/mL Influenza A (Rapid) Negative (Negative) Influenza B (Rapid) Negative (Negative) Microbiology and Other Data: Microbiology 05/06/17 21:00 Gram Stain - Final Sputum Diagnostic Imaging: Patient: NYASIA YING [facility] Rec#: [id number] : 1995 Date: 05/07/2017 Age: 21y Height: 154.94 cm / 61.0 in Weight: 53.98 kg / 119.0 lbs Sex: F BSA: 1.52 Room#: [facility] Admit Date#: 05/05/2017 Type: Inpatient Referring: Pita Jenkins Reading: Mike Rubio MD Roving Department Supervisor: Katie Trivedi RDCS CC: Lali Keith NP Transthoracic Echocardiogram Indication: Shortness of breath, SVT BP: 118/67 HR: 49 Rhythm: Bradycardia Findings History: Former smoker. Technical Comments: The study quality is good. Completed at 1030. Left Ventricle: The left ventricular chamber size is normal. There is no left ventricular hypertrophy. Left ventricular systolic function is at the lower limits of normal. The estimated ejection fraction is 50-55%. Normal left ventricular diastolic filling is observed. Left Atrium: The left atrial chamber size is normal. Right Ventricle: Moderator Band present. The right ventricular cavity size is normal. The right ventricular global systolic function is normal. Right Atrium: The right atrial cavity size is normal. A prominent eustachian valve is noted in the right atrium. Aortic Valve: The aortic valve is trileaflet. There is no evidence of aortic valve thickening. There is no evidence of aortic regurgitation. There is no evidence of aortic stenosis. Mitral Valve: The mitral valve leaflets are mildly thickened. There is prolapse of the anterior leaflet of the mitral valve. There is moderate mitral regurgitation. The mitral regurgitant jet is eccentric. There is no evidence of mitral stenosis. Tricuspid Valve: The tricuspid valve leaflets are normal. There is a physiologic tricuspid regurgitation. Unable to estimate the right ventricular systolic pressure. There is no tricuspid stenosis. Pulmonic Valve: The pulmonic valve appears normal. There is a trace pulmonic regurgitation. There is no pulmonic stenosis. Pericardium: There is no significant pericardial effusion. Aorta: There is no dilatation of the ascending aorta. There is no dilatation of the aortic arch. The aortic root is normal in size. Pulmonary Artery: The main pulmonary artery appears normal. Venous: The inferior vena cava appears normal in size. There is less than 50% respiratory change in the inferior vena cava dimension. Summary: There was not any prior study for comparison. Conclusions Left ventricular systolic function is at the lower limits of normal. The estimated ejection fraction is 50-55%. The right ventricular global systolic function is normal. There is no evidence of aortic stenosis. There is prolapse of the anterior leaflet of the mitral valve. There is moderate mitral regurgitation. The mitral regurgitant jet is eccentric. There is a physiologic tricuspid regurgitation. Unable to estimate the right ventricular systolic pressure. There is no significant pericardial effusion. Measurements Name Value Normal Range RVIDd (AP) 2D 2.6 cm (0.9 - 2.6) RVDdMajor (2D) 2.9 cm (2.2 - 4.4) RAd ISD 4CH 3.6 cm (3.4 - 4.9) RA (A4C)W 2.7 cm (2.9 - 4.6) IVSd (2D) 0.8 cm (0.6 - 1) LVPWd (2D) 0.8 cm (0.6 - 1) LVIDd (2D) 4.6 cm (3.6 - 5.4) LVIDs (2D) 3.6 cm - LV FS (2D) 22 % (25 - 45) Aortic Annulus 1.8 cm (1.4 - 2.6) Ao root diameter (2D) 2.6 cm (2.1 - 3.5) Ascending Ao 2.4 cm (2.1 - 3.4) Aortic arch 1.8 cm (1.8 - 3.4) LA dimension (AP) 2D 3.3 cm (2.3 - 3.8) LAd ISD 4CH 4 cm (2.9 - 5.3) LA ISD 4CH W 3.8 cm (2.5 - 4.5) Name Value Normal Range LA ESV SP 4CH (A/L) 40 ml - LA ESV SP 2CH (A/L) 42 ml - LA ESV BP (A/L) 43 ml - LA ESV BP (A/L) index 29 ml/m2 - LA ESV SP 4CH (MOD) 34 ml - LA ESV SP 2CH (MOD) 39 ml - Name Value Normal Range MV E-wave Vmax 1.11 m/sec - MV deceleration time 113.6 msec - MV A-wave Vmax 0.24 m/sec - MV E:A ratio 4.61 ratio - LV septal e' Vmax 0.14 m/sec - LV lateral e' Vmax 0.16 m/sec - LV E:e' septal ratio 7.93 ratio - LV E:e' lateral ratio 6.94 ratio - Name Value Normal Range AV Vmax 1.1 m/sec - AV VTI 23.75 cm - AV peak gradient 4.99 mmHg - AV mean gradient 2.83 mmHg - LVOT Vmax 0.76 m/sec - LVOT VTI 17.04 cm - LVOT peak gradient 2.34 mmHg - LVOT mean gradient 1.46 mmHg - RADHA Vmax 1.04 m/sec - Name Value Normal Range MR Vmax 5.8 m/sec - MR VTI 234.7 cm - MR flow (PISA) 30.8 ml/sec - MR ERO 0.05 cm2 - MR PISA radius 0.4 cm - MR alias Vmax 37.1 cm/sec - Name Value Normal Range IVC diameter 1.4 cm - Name Value Normal Range PV Vmax 0.71 m/sec - PV peak gradient 2.02 mmHg - Patient Name: NYASIA YING Medical Record#: [id number] Ordering Physician: Jerrell Aquino MD Acct.#: [id number] : 1995 Age: 21 Sex: F Location: EMERGENCY DEPARTMENT Exam Date: 05/05/17 1640 ADM Status: REG ER Order Information: CHEST PA & LAT 2 VWS Accession Number: [id number] CPT: 97084 HISTORY: Shortness of breath COMPARISONS: April 13, 2017 VIEWS: 2: Frontal and lateral views of the chest. FINDINGS: CARDIOMEDIASTINAL SILHOUETTE: The cardiomediastinal silhouette is normal. VIRGIE: The virgie are normal. PLEURA: The costophrenic angles are sharp. No pleural abnormalities are noted. LUNG PARENCHYMA: The lungs are clear. ABDOMEN: The upper abdomen is clear. There is no subphrenic gas. BONES AND SOFT TISSUES: No bone or soft tissue abnormalities are noted. OTHER: None. IMPRESSION: NO ACTIVE CARDIOPULMONARY DISEASE. <Electronically signed by Oscar Guerra MD in OV> 05/05/171818 Dictated By: Oscar Guerra MD Dictated Date/Time: 05/05/171818 Transcribed Date/Time: 05/05/171818 Copy to: CC:Lali Keith ELECTRICAL CAD TECHNICIAN; Jerrell Aquino MD Imaging - [facility] Imaging - [facility] Imaging - [facility] [address] [address] ph [phone]) ph [phone]) ph ([phone]) 1 of 1 Assess/Plan/Problems-Billing Assessment: This is a 21 year old female with multiple ER visits for SOB since last October, currently being worked up and treated for asthma, now with EKG changes and continued SOB. - Patient Problems (1) SOB (shortness of breath) Code(s): R06.02 - SHORTNESS OF BREATH SNOMED Code(s): 591494697 Comment: - Likely persistent untreated asthma, however, now with EKG changes and alternating tachy/bettie, ECHO shows somewhat low EF (50-55%) and patient has admitted to buying street vicodin. Question if this is r/t unknow meds? Patient is relatively uncooperative and not very forthcoming with information. - Peak Flow ordered (250-225) - Received solumedrol 125mg in ER and is on 40 Q8H, taper steroids tomorrow - Neb treatments Q6h - Azithromycin 500x 5 days - Dr. Garcia consult appreciated (2) Leukocytosis Code(s): D72.829 - ELEVATED WHITE BLOOD CELL COUNT, UNSPECIFIED SNOMED Code(s) : 105453624 Comment: - Likely 2/2 steroids - Monitor, no fever (3) Glucosuria Code(s): R81 - GLYCOSURIA SNOMED Code(s): 78129794 Comment: - Likely 2/2 steroids - Monitor (4) Acute depression Code(s): F32.9 - MAJOR DEPRESSIVE DISORDER, SINGLE EPISODE, UNSPECIFIED SNOMED Code(s): 783476513 Comment: - Psych consult appreciated. Recommending ativan PRN for panic episodes and will need outpatient follow up. (5) Hyperthyroidism Code(s): E05.90 - THYROTOXICOSIS, UNSP WITHOUT THYROTOXIC CRISIS OR STORM SNOMED Code(s): 46876261 Comment: - Suppressed TSH may account for tachycardia, but not bradycardic episodes - Call/consult to Dr. Hernandez, waiting on T3, T3, anti-TPO and TSI - May consult cardiology in AM if EKG changes persist, as beta blockers would be contraindicated given bradycardia Status and Disposition: Remain inpatient. Counseling and/or Coordination of Care Minutes: Coordinated with patient's mother and staff.
[2017-05-07] MEDS: CMCS: Melatonin (NF) 3 MG TAB PO PRN (21:29)
--- NOTE | 2017-05-07 23:46 | CONS ---
CONSULTATION REPORT: DATE OF CONSULT: 05/07/17 ATTENDING PROVIDER: Pita Wheatley NP and the hospitalist service. CONSULTING PROVIDER: Megan Calderon NP SUPERVISING PSYCHIATRIST: Dr. Calixto Thompson. REASON FOR CONSULT: Psychiatry was asked to consult on the patient who had made statements of wanting to go home and instead of compliant with recommended treatment and diagnostic studies. Transport Aircrewman finds the patient lying in bed on the medical floor. She is dysphoric with restricted affect and she is mildly cooperative with interview. She is often tearful and has a high-pitched voice. She complains that nobody is helping her with her pain and that no one is doing anything to help her. She that she just wants the pain to go away and does not care about anything else. According to notes, the patient has been refusing blood draws due to her fear of needles. She has needed much assurance and explanation in regards to treatment including having had an echocardiogram. The patient is circumstantial in regards to back pain and is minimizing the current concerns in regards to thyroid and cardiac concerns. The patient states that she has a history of depression and anxiety for most of her life. She denies suicidal ideation. She denies attempts at suicide. She states that she engaged in cutting once or twice during the end of middle school. This was in the context of being bullied for multiple years. She states that she had depressed mood, hopelessness, helplessness since elementary school. She states that she has had multiple medication trails through her primary care and "nothing worked." The patient reports mild anxiety problems and states that these are nothing I cannot handle. She reports she typically utilizes breathing to cope with anxiety; however, she has been experiencing shortness of breath since October and had multiple workups. She reports a decrease in appetite with no weight change. She denies change in sleep habits. 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 The patient reports stressors of work and family interactions. She is defensive when I ask her to explain further and she states everybody has family drama, I do not want to talk about it. She reports she has had a boyfriend for the past 5 to 6 months and the relationship is "fine." She denies abuse or domestic violence. He has moved into her apartment , which is adjacent to her parents' home and owned by her parents. Her mother, Nasreen, is in the hospital visiting me separately. Nasreen reports that Kaye has always been an emotional and sensitive person. She states that she is prone to dramatic outbursts. Nasreen also endorses a history of somatic complaints since Kaye was in her teens. She states they have had multiple workups for back pain, which was sudden in onset and there was no apparent injury. The patient has undergone physical therapy and been [facility]. In regards to psychiatric medications, Nasreen does not recall the names. She states that Kaye has been on multiple medication trails, but she is not sure how sensitive these were. She states that Kaye tends to give up quickly if she is not seeing results. Kaye's mother is agreeable to Kaye continuing hospital treatment and does not think that she is at risk. PAST PSYCHIATRIC HISTORY: The patient reports seeing 2 therapists when she was in middle school and towards the beginning of high school. As stated above, this was triggered by being bullied in school. PAST MEDICAL HISTORY: Back pain of unknown etiology, reactive airway new diagnosis and history of kidney stones and lithotripsy. TRAUMA/ABUSE HISTORY: The patient denies physical, sexual, or emotional abuse. As stated above, she was bullied during middle school. PAST MEDICATIONS: "Too many to remember." She states she has not taken any medications for months. Her primary care provider recently started prescribing control pill due to amenorrhea. The patient denies other current medications. ALLERGIES: No known allergies. Height 5 feet 1 inch, weight 119 pounds. LMP 2 weeks ago. The patient states that she and her boyfriend do not use protection. Her HCT was negative on the . PRIMARY CARE PROVIDER: Lali Keith NP FAMILY PSYCHIATRIC HISTORY: Father with depression. No known other history. SOCIAL HISTORY: The patient is the youngest of 2 siblings, primary parents. Her older brother is 27 years old and he is a vfx artist in [place]. The patient graduated from [employer] in 2011. She reports she had social education in reading and spelling. 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 The patient reports history of smoking cigarettes, but stopped months ago due to shortness of breath. She occasionally smokes marijuana and says that her last time was 2 months ago. She reports buying or using Vicodin once a couple of days ago. This report is inconsistent with what she had told BLAKE Lema. The patient denies legal history. MENTAL STATUS EXAM: The patient is lying in her bed. She is wearing hospital gown. She has closed posture, head down and poor eye contact. She is cooperative with interview. At times, she is tearful. She appears younger than stated age both physically and emotionally. She is alert and oriented x3. Concentration is fair. Her memory is 3/3. Her mood is "depressed." Her affect is expansive. Speech is soft with regular rhythm and volume. Thought process is circumstantial in regards to back pain. Content of thought, negative for SI, HI, or . She denies delusions or depersonalization or AV hallucinations. Her insight is poor. Her judgment is fair. Fund of knowledge is adequate. Of note, her boyfriend visits after the patient met with her primary COMMISSIONED SECURITY OFFICER. Her affect was drastically changed. She was sitting up in bed, she was euthymic and with a bright affect. DIAGNOSIS: History of major depressive disorder, consider depression related to general medical condition, consider borderline personality traits. ASSESSMENT: Kaye is a 21-year-old female with a history of major depressive disorder and multiple medication trials. She is currently undergoing diagnostic studies for shortness of breath and syncope. There may be some thyrotoxicosis involving cardiac output. Psychiatry was asked to consult on the patient after she was histrionic and refusing to continue with medical hospitalization and suggested diagnostic studies. She is circumstantial in regards to back pain. It is potential that is likely that she is somatizing some of her emotions. Both her mother and she are receptive to this information. The patient states she is agreeable to remain in the hospital due to risk for medical concerns. RECOMMENDATION: Continue medical hospitalization along with use of lorazepam up to t.i.d. p.r.n. anxiety and it is not recommended that this medication be continued on an outpatient basis unless she is participating in mental health services. The patient denies need for psychiatric hospitalization and does not meet criteria for involuntary hospitalization. I have spoken with Pita Wheatley and discussed recommendations. Psychiatry is signing off on the care of this patient. Should she request further psychiatric services, we would be happy to consult again. Thank you for allowing me to participate in care of your patient. MEGAN CALDERON, BLAKE [id number]/[facility] #: [id number] ZENA
[2017-05-08] MEDS: methylPREDNISolone SOD 40 MG* 1 ML VIAL IV SCH ×2 (04:00→09:40)
[2017-05-08] MEDS: traMADol TAB* 50 MG PO PRN ×2 (04:01→09:55)
[2017-05-08] MEDS: LORazepam TAB(*) 0.5 MG PO PRN ×2 (04:02→09:55)
[2017-05-08] MEDS: Omeprazole CAP* 20 MG PO SCH (05:57)
[2017-05-08] MEDS: oxyCODONE/Acetamin 5/325 MG* TAB PO PRN ×3 (05:57→19:42)
[2017-05-08] MEDS: NS 0.9% 1000 ML* 1,000 ML IV SCH ×2 (07:57→19:29)
--- NOTE | 2017-05-08 08:37 | PN ---
Subjective - Subjective Reason for Note: Consultation Note History: Endocrine consultation: History from patient: She started to have problems with shortness of breath and coughing October 2016. This has become steadily worse. She was unaware of any heart issues. She presened after an episode of syncope. This morning since 4 am she has had some chest pressure. She has had no previous diagnosis of thyroid disease Thyroid: No weight change No temperature intolerance no change in bowel habit No sleep disruption Menses - she recently stopped her oral contraceptive pill and her menses have been less regular No change in skin or hair Her energy level has been normal Review of EHR: I reviewed Dr. Cornelius's,Dr. Garcia's and NPP Elise's notes She has a history suggestive of reactive airway disease She has had episodes of SVT She had opioid found in urine Active Problems: Active Problems Acute depression (Acute) F32.9 - Psych consult appreciated. Recommending ativan PRN for panic episodes and will need outpatient follow up. Glucosuria (Acute) R81 - Likely 2/2 steroids - Monitor Hyperthyroidism (Acute) E05.90 - Suppressed TSH may account for tachycardia, but not bradycardic episodes - Call/consult to Dr. Hernandez, waiting on T3, T3, anti-TPO and TSI - May consult cardiology in AM if EKG changes persist, as beta blockers would be contraindicated given bradycardia Leukocytosis (Acute) D72.829 - Likely 2/2 steroids - Monitor, no fever SOB (shortness of breath) (Acute) R06.02 - Likely persistent untreated asthma, however, now with EKG changes and alternating tachy/bettie, ECHO shows somewhat low EF (50-55%) and patient has admitted to [facility] vicodin. Question if this is r/t unknow meds? Patient is relatively uncooperative and not very forthcoming with information. - Peak Flow ordered (250-225) - Received solumedrol 125mg in ER and is on 40 Q8H, taper steroids tomorrow - Neb treatments Q6h - Azithromycin 500x 5 days - Dr. Garcia consult appreciated Current Medications: Current Medications Acetaminophen (Tylenol Tab*) 650 mg PO Q6H PRN PRN Reason: FEVER/PAIN Last Admin: 05/06/17 21:36 Dose: 650 mg Albuterol (Ventolin 2.5 Mg/3 Ml Neb.Teresa*) 2.5 mg INH Q4H PRN PRN Reason: SOB/WHEEZING Azithromycin (Zithromax Tab*) 500 mg PO DAILY [facility] Stop: 05/09/17 09:01 Last Admin: 05/07/17 08:34 Dose: 500 mg Sodium Chloride (Ns 0.9% 1000 Ml*) 1,000 mls @ 125 mls/hr IV PER RATE RANJANA Last Admin: 05/08/17 07:57 Dose: 125 mls/hr Lorazepam (Ativan Tab(*)) 0.5 mg PO Q6H PRN PRN Reason: ANXIETY Last Admin: 05/08/17 04:02 Dose: 0.5 mg Melatonin (Melatonin (Nf)) 3 mg PO BEDTIME PRN; Protocol PRN Reason: Sleep Last Admin: 05/07/17 21:29 Dose: 3 mg Methylprednisolone Sodium Succinate (Solu-Medrol 40 Mg) 40 mg IV Q8H [facility] Last Admin: 05/08/17 04:00 Dose: 40 mg Omeprazole (Prilosec Cap*) 20 mg PO DAILY@0600 [facility] Last Admin: 05/08/17 05:57 Dose: 20 mg Ondansetron HCl (Zofran Inj*) 4 mg IV Q6H PRN PRN Reason: NAUSEA Oxycodone/Acetaminophen (Percocet 5/325 Tab*) 1 tab PO Q6H PRN PRN Reason: PAIN Last Admin: 05/08/17 05:57 Dose: 1 tab Throat Lozenges (Chloraseptic Madan*) 1 madan PO Q6H PRN PRN Reason: SORE THROAT Last Admin: 05/06/17 21:35 Dose: 1 madan Tramadol HCl (Ultram*) 50 mg PO Q6H PRN PRN Reason: PAIN Last Admin: 05/08/17 04:01 Dose: 50 mg Past Medical History: Renal stone disease/stents/lithotripsies Nephrolithiasis ADHD Depression Home Medications: Home Medications Medication Instructions Recorded Confirmed Type Amphetamine MIXED SALTS TAB* 30 mg PO BID 11/18/13 05/05/17 History Albuterol HFA INHALER* [Ventolin 1 - 2 puff INH Q4H PRN #1 mdi 04/13/17 Rx HFA Inhaler*] Allergies: Allergies Allergy/AdvReac Type Severity Reaction Status Date / Time No Known Allergies Allergy Verified 05/05/17 20:30 - Family History Family History: No thyroid disease, endocrinopathy or autoimmune disease Mother passed one renal stone. Maternal grandfather had cancer. - Social History Social History: Former smoker Doesn't drink alcohol Occasional "weed" No other substance abuse Objective - Vital Signs Vital Signs: Vital Signs 05/07/17 05/07/17 05/07/17 09:02 10:50 12:13 Temperature Pulse Rate 56 Respiratory 22 16 18 Rate Blood Pressure (mmHg) O2 Sat by Pulse 98 Oximetry 05/07/17 05/07/17 05/07/17 14:39 15:11 15:13 Temperature 97.8 F Pulse Rate 57 Respiratory 20 20 22 Rate Blood Pressure 136/75 (mmHg) O2 Sat by Pulse 100 Oximetry 05/07/17 05/07/17 05/07/17 17:02 19:05 19:35 Temperature 97.9 F Pulse Rate 47 Respiratory 18 18 16 Rate Blood Pressure 124/68 (mmHg) O2 Sat by Pulse 99 Oximetry 05/07/17 05/07/17 05/07/17 19:40 20:00 21:28 Temperature Pulse Rate 88 Respiratory 18 18 Rate Blood Pressure (mmHg) O2 Sat by Pulse Oximetry 05/07/17 05/07/17 05/08/17 23:01 23:05 01:10 Temperature 97.9 F Pulse Rate 61 Respiratory 18 18 18 Rate Blood Pressure 130/81 (mmHg) O2 Sat by Pulse 97 Oximetry 05/08/17 05/08/17 05/08/17 04:01 04:02 04:09 Temperature 97.8 F Pulse Rate 51 Respiratory 18 18 18 Rate Blood Pressure 131/84 (mmHg) O2 Sat by Pulse 97 Oximetry 05/08/17 05/08/17 05/08/17 05:57 06:02 07:36 Temperature 97.9 F Pulse Rate 57 52 Respiratory 18 16 Rate Blood Pressure 140/88 117/61 (mmHg) O2 Sat by Pulse 95 Oximetry - Intake and Output Intake and Output: Intake & Output 05/05/17 05/06/17 05/07/17 05/08/17 11:59 11:59 11:59 11:59 Intake Total 3555 400 3000 Balance 3555 400 3000 Weight 119 lb 3.2 oz Intake: IV Fluids 3315 3000 ns 0.9 3315 3000 Oral 240 400 0 Other: Estimated Void Large Medium Medium # Bowel Movements 0 0 # Voids 1 1 3 ADLs: Meal Record Start: 05/05/17 20: 31 Freq: DAILY@0900,1400,1800 Status: Active Protocol: Document 05/06/17 09:00 [id number] (Rec: 05/06/17 13:57 [id number] MED-C11) Document 05/07/17 09:00 [id number] (Rec: 05/07/17 11:01 [id number] MED-C09) Document 05/07/17 14:00 [id number] (Rec: 05/07/17 14:26 [id number] MED-C11) Document 05/07/17 18:00 [id number] (Rec: 05/07/17 18:49 [id number] MED-C11) Intake and Output Start: 05/05/17 20: 31 Freq: DAILY@0600,1400,2200 Status: Active Protocol: Document 05/05/17 22:00 [id number] (Rec: 05/05/17 22:40 [id number] MED-C11) Document 05/06/17 04:28 [id number] (Rec: 05/06/17 04:29 [id number] MEDL-C01) Document 05/06/17 13:57 [id number] (Rec: 05/06/17 13:57 [id number] MED-C11) Document 05/06/17 18:23 [id number] (Rec: 05/06/17 18:25 [id number] MED-C11) Document 05/07/17 04:04 [id number] (Rec: 05/07/17 04:05 [id number] MED-C26) Document 05/07/17 14:00 [id number] (Rec: 05/07/17 14:26 [id number] MED-C11) Document 05/07/17 22:00 [id number] (Rec: 05/07/17 22:06 [id number] MED-C11) Document 05/08/17 05:20 [id number] (Rec: 05/08/17 05:21 [id number] MED-C26) - Physical Exam General Physical Exam Comment: Warm and well perfused, in no acute distress General: No Cyanosis, No Anemia, No Jaundice, No Clubbing Eye Exam: bilateral: EOMI -: No Tremor, No Goiter, No Thyroid Nodule, No Thyroid Tenderness, No Hoarseness , No Cervical adenopathy, No Conjunctival Injection, No Lid Lag, No Periorbital Edema, No Dysconjugate Eye Movement Endocrine: No Central Obesity, No Hirsuitism, No Virilism, No Acromegaly, No Vitiligo, No Flushing, No Acanthosis nigricans, No Violaceious striae, No [place] Syndrome, No Buccal pigmenatation, No Cox Crease Pigmentation Lungs and Chest: Yes: Chest Expansion Full, Chest Expansion Symetrica, Percussion Note Resonant, Vessicular Breath Sounds. No: Crackles, Wheezes, Respiratory Distress Heart Rate and Rhythm: Regular JVP: Not Elevated Additional Cardiovascular: Yes: Normal Heart Sounds. No: Heart Murmur, Pedal Edema Abdominal Exam: Yes: Soft, Bowel Sounds Present. No: Distention, Rigidity, Abdominal Mass, Hepatomegaly, Abdominal Tenderness, Guarding - Extremities Cranial Nerves II-XII Intact: Yes Limbs: Normal Power, Normal Tone, Normal Coordination - Neuro Orientation: A/O x3 Speech: Normal Results - Results Lab Results: Laboratory Results - last 24 hr 05/07/17 05/07/17 05/07/17 05:55 11:08 11:08 WBC 13.6 H RBC 3.84 L Hgb 11.2 L Hct 34 L MCV 88 MCH 29 MCHC 33 RDW 14 Plt Count 297 MPV 8 Neut % (Auto) 89.0 H Lymph % (Auto) 8.8 L [place] % (Auto) 2.1 Eos % (Auto) 0 Baso % (Auto) 0.1 Absolute Neuts (auto) 12.1 H Absolute Lymphs (auto) 1.2 Absolute Monos (auto) 0.3 Absolute Eos (auto) 0 Absolute Basos (auto) 0 Absolute Nucleated RBC 0 Nucleated RBC % 0 ESR 12 Sodium 136 Potassium 4.3 Chloride 107 Carbon Dioxide 24 Anion Gap 5 BUN 16 Creatinine 0.61 Est GFR ( Amer) 156.3 Est GFR (Non-Af Amer) 121.5 BUN/Creatinine Ratio 26.2 H Glucose 101 H Calcium 8.9 Magnesium 2.0 C-React Prot High Sens TSH 0.13 L Free T4 0.76 Free T3 2.50 Thyroid Peroxidase Ab 0.61 05/07/17 11:08 WBC RBC Hgb Hct MCV MCH MCHC RDW Plt Count MPV Neut % (Auto) Lymph % (Auto) [place] % (Auto) Eos % (Auto) Baso % (Auto) Absolute Neuts (auto) Absolute Lymphs (auto) Absolute Monos (auto) Absolute Eos (auto) Absolute Basos (auto) Absolute Nucleated RBC Nucleated RBC % ESR Sodium Potassium Chloride Carbon Dioxide Anion Gap BUN Creatinine Est GFR ( Amer) Est GFR (Non-Af Amer) BUN/Creatinine Ratio Glucose Calcium Magnesium C-React Prot High Sens 0.32 TSH Free T4 Free T3 Thyroid Peroxidase Ab Radiology Results: Patient Name: NYASIA YING Medical Record#: [id number] Ordering Physician: Jerrell Aquino MD Acct.#: [id number] : 1995 Age: 21 Sex: F Location: EMERGENCY DEPARTMENT Exam Date: 05/05/17 1640 ADM Status: REG ER Order Information: CHEST PA & LAT 2 VWS Accession Number: [id number] CPT: 13288 HISTORY: Shortness of breath COMPARISONS: April 13, 2017 VIEWS: 2: Frontal and lateral views of the chest. FINDINGS: CARDIOMEDIASTINAL SILHOUETTE: The cardiomediastinal silhouette is normal. VIRGIE: The virgie are normal. PLEURA: The costophrenic angles are sharp. No pleural abnormalities are noted. LUNG PARENCHYMA: The lungs are clear. ABDOMEN: The upper abdomen is clear. There is no subphrenic gas. BONES AND SOFT TISSUES: No bone or soft tissue abnormalities are noted. OTHER: None. IMPRESSION: NO ACTIVE CARDIOPULMONARY DISEASE. <Electronically signed by Oscar Guerra MD in OV> 05/05/171818 Dictated By: Oscar Guerra MD Dictated Date/Time: 05/05/171818 Transcribed Date/Time: 05/05/171818 Copy to: CC:Lali Keith GRANITE WORKER; Jerrell Aquino MD Imaging - [facility] - [place] [facility] [address] [place] [address] ph ([phone]) ph ([phone]) ph ([phone]) 1 of 1 EKG Report: I reviewed 3 EKGs - one showed sinus bradycardia, another sinus tachycardia and the third was normal rate. No other abnormalities Other Results/Reports: Thransthoracic echocardiogram Conclusions Left ventricular systolic function is at the lower limits of normal. The estimated ejection fraction is 50-55%. The right ventricular global systolic function is normal. There is no evidence of aortic stenosis. There is prolapse of the anterior leaflet of the mitral valve. There is moderate mitral regurgitation. The mitral regurgitant jet is eccentric. There is a physiologic tricuspid regurgitation. Unable to estimate the right ventricular systolic pressure. There is no significant pericardial effusion. Measurements Assessment - Problem List Assessment: Patient Problems Acute depression (Acute) Glucosuria (Acute) Hyperthyroidism (Acute) Leukocytosis (Acute) SOB (shortness of breath) (Acute) Plan: Subclinical hyperthyroidism: I note that she has had prior TSH measurements: Laboratory Tests 05/11/11 05/20/12 05/14/16 10:53 14:45 13:07 TSH 0.97 0.71 0.54 08/28/16 05/07/17 15:10 11:08 TSH 0.25 L 0.13 L Her thyroid hormone indices are normal and she has no symptoms or signs of thyroid disease. Her thyroid examination shows no nodules/goiter. She has no physical signs of Graves' disease. However, there is a trend of progressively lower TSH levels. I note she has thyroid stimulating immunoglobulins ordered. Her thyroid peroxidase antibodies are normal. She has no family history of thyroid disease. I will check a thyroid US. I find it unlikely that this mild subclinical hyperthyroidism causes any heart rhythm disturbances. I note she has been using nebulized beta agonists - a far more likely cause of palpitaitons. Differential diagnosis: Toxic thyroid nodule Graves' disease - mild Euthyroid sick syndrome (unlikely with this progressive downward trend in her TSH). I will check an US thyroid and consider a NM thyroid scan and uptake based upon the results I do not think she requires any antithyroid medicaiton at present.\\ I note she has a history of multiple renal stones and stents. I see no evidence of primary hyperparathyroidism. I discussed the above with the patient
[2017-05-08] MEDS: Azithromycin TAB* 250 MG PO SCH (09:39)
--- NOTE | 2017-05-08 10:03 | RAD ---
Indication: Hyperthyroidism subclinical. Comparison: No relevant prior exams available on the [facility] PACS for comparison. Technique: Thyroid ultrasound. Estimated thyroid lobe volume based on Ellipsoid Volume = L x W x H x .53 with dimensions documented on PACS. Report: 4.5 mL estimated RIGHT thyroid lobe volume. 3.8 mL estimated LEFT thyroid lobe volume. 0.3 cm isthmus. Largely homogeneous glandular echotexture. RIGHT thyroid lobe mid anterior subcapsular: Sharply circumscribed 0.3 x 0.2 x 0.3 cm predominantly cystic nodule devoid of intrinsic vascularity or other suspicious complex features. Very low suspicion nodule based on morphology and minute size of doubtful clinical significance. LEFT thyroid lobe nodule superior: 0.2 x 0.2 x 0.2 cm predominant cystic nodule devoid of intrinsic vascularity or other suspicious complex features. Very low suspicion nodule based on morphology and minute size of doubtful clinical significance. IMPRESSION: 1. Normal range thyroid gland volume. 2. No suspicious focal thyroid lesions evident. Ref: 2015 [place] [employer] Management Guidelines for Adult Patients with Thyroid Nodules and Differentiated Thyroid Cancer.
--- NOTE | 2017-05-08 18:44 | PN ---
Subjective Date of Service: 05/08/17 Interval History: Patient seen and examined. Mother at bedside. Mother upset that workup is not yielding "results" or "answers". Explained that each complaint and finding has been addressed and three specialists have been involved in her daughter's case. Daughter insists that "no one is listening to me". Again I explained that each complaint has been addressed. Mother is expecting to see portal developer, as patient was having sharp chest pain this morning. EKG completed. I have discussed this with Dr. Miller who recommends 2 troponins and exercise stress in AM. If there are positive findings, will formally consult cardiology. Patient has showered and has no acute complaints at this time, states breathing has improved, still complains of back pain. Objective Active Medications: Acetaminophen (Tylenol Tab*) 650 mg PO Q6H PRN PRN Reason: FEVER/PAIN Last Admin: 05/06/17 21:36 Dose: 650 mg Albuterol (Ventolin 2.5 Mg/3 Ml Neb.Teresa*) 2.5 mg INH Q4H PRN PRN Reason: SOB/WHEEZING Azithromycin (Zithromax Tab*) 500 mg PO DAILY [facility] Stop: 05/09/17 09:01 Last Admin: 05/08/17 09:39 Dose: 500 mg Sodium Chloride (Ns 0.9% 1000 Ml*) 1,000 mls @ 125 mls/hr IV PER RATE [facility] Last Admin: 05/08/17 07:57 Dose: 125 mls/hr Lorazepam (Ativan Tab(*)) 0.5 mg PO Q6H PRN PRN Reason: ANXIETY Last Admin: 05/08/17 09:55 Dose: 0.5 mg Melatonin (Melatonin (Nf)) 3 mg PO BEDTIME PRN; Protocol PRN Reason: Sleep Last Admin: 05/07/17 21:29 Dose: 3 mg Omeprazole (Prilosec Cap*) 20 mg PO DAILY@0600 [facility] Last Admin: 05/08/17 05:57 Dose: 20 mg Ondansetron HCl (Zofran Inj*) 4 mg IV Q6H PRN PRN Reason: NAUSEA Oxycodone/Acetaminophen (Percocet 5/325 Tab*) 1 tab PO Q6H PRN PRN Reason: PAIN Last Admin: 05/08/17 12:36 Dose: 1 tab Throat Lozenges (Chloraseptic Madan*) 1 madan PO Q6H PRN PRN Reason: SORE THROAT Last Admin: 05/06/17 21:35 Dose: 1 madan Tramadol HCl (Ultram*) 50 mg PO Q6H PRN PRN Reason: PAIN Last Admin: 05/08/17 09:55 Dose: 50 mg Vital Signs - 8 hr 05/08/17 05/08/17 05/08/17 11:19 12:35 12:36 Temperature 97.8 F Pulse Rate 49 Respiratory 16 16 16 Rate Blood Pressure 125/88 (mmHg) O2 Sat by Pulse 100 Oximetry 05/08/17 16:57 Temperature Pulse Rate Respiratory 16 Rate Blood Pressure (mmHg) O2 Sat by Pulse Oximetry Oxygen Devices in Use Now: None Appearance: Alert, tearful at times, NAD Ears/Nose/Mouth/Throat: NL Teeth, Lips, Gums, Mucous Membranes Moist Neck: NL Appearance and Movements; NL JVP Respiratory: Symmetrical Chest Expansion and Respiratory Effort, Clear to Auscultation Cardiovascular: NL Sounds; No Murmurs; No JVD, RRR Abdominal: NL Sounds; No Tenderness; No Distention Skin: No Rash or Ulcers Neurological: Alert and Oriented x 3 Nutrition: Taking PO's Result Diagrams: 05/07/17 11:08 05/07/17 11:08 Additional Lab and Data: Lab Results 05/05/17 05/05/17 05/05/17 Range/Units 17:05 17:05 17:05 WBC 11.6 H (3.5-10.8) 10^3/ul RBC 4.62 (4.0-5.4) 10^6/ul Hgb 13.5 (12.0-16.0) g/dl Hct 39 (35-47) % MCV 85 (80-97) fL MCH 29 (27-31) pg MCHC 35 (31-36) g/dl RDW 14 (10.5-15) % Plt Count 320 (150-450) 10^3/ul MPV 8 (7.4-10.4) um3 Neut % (Auto) 94.7 H (38-83) % Lymph % (Auto) 4.3 L (25-47) % Medina % (Auto) 0.9 L (1-9) % Eos % (Auto) 0 (0-6) % Baso % (Auto) 0.1 (0-2) % Absolute Neuts (auto) 10.9 H (1.5-7.7) 10^3/ul Absolute Lymphs (auto) 0.5 L (1.0-4.8) 10^3/ul Absolute Monos (auto) 0.1 (0-0.8) 10^3/ul Absolute Eos (auto) 0 (0-0.6) 10^3/ul Absolute Basos (auto) 0 (0-0.2) 10^3/ul Absolute Nucleated RBC 0 10^3/ul Nucleated RBC % 0 D-Dimer, Quantitative (Less Than 230) ng/mL Sodium 136 (133-145) mmol/L Potassium 3.8 (3.5-5.0) mmol/L Chloride 103 (101-111) mmol/L Carbon Dioxide 22 (22-32) mmol/L Anion Gap 11 (2-11) mmol/L BUN 12 (6-24) mg/dL Creatinine 0.73 (0.51-0.95) mg/dL Est GFR ( Amer) 127.1 (>60) Est GFR (Non-Af Amer) 98.8 (>60) BUN/Creatinine Ratio 16.4 (8-20) Glucose 167 H (70-100) mg/dL Lactic Acid 3.5 H* (0.5-2.0) mmol/L Calcium 9.8 (8.6-10.3) mg/dL Total Bilirubin 0.40 (0.2-1.0) mg/dL AST 16 (13-39) U/L ALT 10 (7-52) U/L Alkaline Phosphatase 75 (34-104) U/L C-Reactive Protein 4.82 (< 5.00) mg/L Total Protein 7.2 (6.4-8.9) g/dL Albumin 4.2 (3.2-5.2) g/dL Globulin 3.0 (2-4) g/dL Albumin/Globulin Ratio 1.4 (1-3) Beta HCG, Quant < 0.60 mIU/mL Influenza A (Rapid) (Negative) Influenza B (Rapid) (Negative) 05/05/17 05/05/17 Range/Units 17:05 18:52 WBC (3.5-10.8) 10^3/ul RBC (4.0-5.4) 10^6/ul Hgb (12.0-16.0) g/dl Hct (35-47) % MCV (80-97) fL MCH (27-31) pg MCHC (31-36) g/dl RDW (10.5-15) % Plt Count (150-450) 10^3/ul MPV (7.4-10.4) um3 Neut % (Auto) (38-83) % Lymph % (Auto) (25-47) % Medina % (Auto) (1-9) % Eos % (Auto) (0-6) % Baso % (Auto) (0-2) % Absolute Neuts (auto) (1.5-7.7) 10^3/ul Absolute Lymphs (auto) (1.0-4.8) 10^3/ul Absolute Monos (auto) (0-0.8) 10^3/ul Absolute Eos (auto) (0-0.6) 10^3/ul Absolute Basos (auto) (0-0.2) 10^3/ul Absolute Nucleated RBC 10^3/ul Nucleated RBC % D-Dimer, Quantitative < 200 (Less Than 230) ng/mL Sodium (133-145) mmol/L Potassium (3.5-5.0) mmol/L Chloride (101-111) mmol/L Carbon Dioxide (22-32) mmol/L Anion Gap (2-11) mmol/L BUN (6-24) mg/dL Creatinine (0.51-0.95) mg/dL Est GFR ( Amer) (>60) Est GFR (Non-Af Amer) (>60) BUN/Creatinine Ratio (8-20) Glucose (70-100) mg/dL Lactic Acid (0.5-2.0) mmol/L Calcium (8.6-10.3) mg/dL Total Bilirubin (0.2-1.0) mg/dL AST (13-39) U/L ALT (7-52) U/L Alkaline Phosphatase (34-104) U/L C-Reactive Protein (< 5.00) mg/L Total Protein (6.4-8.9) g/dL Albumin (3.2-5.2) g/dL Globulin (2-4) g/dL Albumin/Globulin Ratio (1-3) Beta HCG, Quant mIU/mL Influenza A (Rapid) Negative (Negative) Influenza B (Rapid) Negative (Negative) Microbiology and Other Data: Microbiology 05/06/17 21:00 Gram Stain - Final Sputum Diagnostic Imaging: Patient: NYASIA YING [facility] Rec#: [id number] : 1995 Date: 05/07/2017 Age: 21y Height: 154.94 cm / 61.0 in Weight: 53.98 kg / 119.0 lbs Sex: F BSA: 1.52 Room#: [facility] Admit Date#: 05/05/2017 Type: Inpatient Referring: Pita Jenkins Reading: Mike Rubio MD Director Federal: Katie Trivedi RDCS CC: Lali Keith NP Transthoracic Echocardiogram Indication: Shortness of breath, SVT BP: 118/67 HR: 49 Rhythm: Bradycardia Findings History: Former smoker. Technical Comments: The study quality is good. Completed at 1030. Left Ventricle: The left ventricular chamber size is normal. There is no left ventricular hypertrophy. Left ventricular systolic function is at the lower limits of normal. The estimated ejection fraction is 50-55%. Normal left ventricular diastolic filling is observed. Left Atrium: The left atrial chamber size is normal. Right Ventricle: Moderator Band present. The right ventricular cavity size is normal. The right ventricular global systolic function is normal. Right Atrium: The right atrial cavity size is normal. A prominent eustachian valve is noted in the right atrium. Aortic Valve: The aortic valve is trileaflet. There is no evidence of aortic valve thickening. There is no evidence of aortic regurgitation. There is no evidence of aortic stenosis. Mitral Valve: The mitral valve leaflets are mildly thickened. There is prolapse of the anterior leaflet of the mitral valve. There is moderate mitral regurgitation. The mitral regurgitant jet is eccentric. There is no evidence of mitral stenosis. Tricuspid Valve: The tricuspid valve leaflets are normal. There is a physiologic tricuspid regurgitation. Unable to estimate the right ventricular systolic pressure. There is no tricuspid stenosis. Pulmonic Valve: The pulmonic valve appears normal. There is a trace pulmonic regurgitation. There is no pulmonic stenosis. Pericardium: There is no significant pericardial effusion. Aorta: There is no dilatation of the ascending aorta. There is no dilatation of the aortic arch. The aortic root is normal in size. Pulmonary Artery: The main pulmonary artery appears normal. Venous: The inferior vena cava appears normal in size. There is less than 50% respiratory change in the inferior vena cava dimension. Summary: There was not any prior study for comparison. Conclusions Left ventricular systolic function is at the lower limits of normal. The estimated ejection fraction is 50-55%. The right ventricular global systolic function is normal. There is no evidence of aortic stenosis. There is prolapse of the anterior leaflet of the mitral valve. There is moderate mitral regurgitation. The mitral regurgitant jet is eccentric. There is a physiologic tricuspid regurgitation. Unable to estimate the right ventricular systolic pressure. There is no significant pericardial effusion. Measurements Name Value Normal Range RVIDd (AP) 2D 2.6 cm (0.9 - 2.6) RVDdMajor (2D) 2.9 cm (2.2 - 4.4) RAd ISD 4CH 3.6 cm (3.4 - 4.9) RA (A4C)W 2.7 cm (2.9 - 4.6) IVSd (2D) 0.8 cm (0.6 - 1) LVPWd (2D) 0.8 cm (0.6 - 1) LVIDd (2D) 4.6 cm (3.6 - 5.4) LVIDs (2D) 3.6 cm - LV FS (2D) 22 % (25 - 45) Aortic Annulus 1.8 cm (1.4 - 2.6) Ao root diameter (2D) 2.6 cm (2.1 - 3.5) Ascending Ao 2.4 cm (2.1 - 3.4) Aortic arch 1.8 cm (1.8 - 3.4) LA dimension (AP) 2D 3.3 cm (2.3 - 3.8) LAd ISD 4CH 4 cm (2.9 - 5.3) LA ISD 4CH W 3.8 cm (2.5 - 4.5) Name Value Normal Range LA ESV SP 4CH (A/L) 40 ml - LA ESV SP 2CH (A/L) 42 ml - LA ESV BP (A/L) 43 ml - LA ESV BP (A/L) index 29 ml/m2 - LA ESV SP 4CH (MOD) 34 ml - LA ESV SP 2CH (MOD) 39 ml - Name Value Normal Range MV E-wave Vmax 1.11 m/sec - MV deceleration time 113.6 msec - MV A-wave Vmax 0.24 m/sec - MV E:A ratio 4.61 ratio - LV septal e' Vmax 0.14 m/sec - LV lateral e' Vmax 0.16 m/sec - LV E:e' septal ratio 7.93 ratio - LV E:e' lateral ratio 6.94 ratio - Name Value Normal Range AV Vmax 1.1 m/sec - AV VTI 23.75 cm - AV peak gradient 4.99 mmHg - AV mean gradient 2.83 mmHg - LVOT Vmax 0.76 m/sec - LVOT VTI 17.04 cm - LVOT peak gradient 2.34 mmHg - LVOT mean gradient 1.46 mmHg - RADHA Vmax 1.04 m/sec - Name Value Normal Range MR Vmax 5.8 m/sec - MR VTI 234.7 cm - MR flow (PISA) 30.8 ml/sec - MR ERO 0.05 cm2 - MR PISA radius 0.4 cm - MR alias Vmax 37.1 cm/sec - Name Value Normal Range IVC diameter 1.4 cm - Name Value Normal Range PV Vmax 0.71 m/sec - PV peak gradient 2.02 mmHg - Patient Name: NYASIA YING Medical Record#: [id number] Ordering Physician: Jerrell Aquino MD Acct.#: [id number] : 1995 Age: 21 Sex: F Location: EMERGENCY DEPARTMENT Exam Date: 05/05/17 1640 ADM Status: REG ER Order Information: CHEST PA & LAT 2 VWS Accession Number: [id number] CPT: 40336 HISTORY: Shortness of breath COMPARISONS: April 13, 2017 VIEWS: 2: Frontal and lateral views of the chest. FINDINGS: CARDIOMEDIASTINAL SILHOUETTE: The cardiomediastinal silhouette is normal. VIRGIE: The virgie are normal. PLEURA: The costophrenic angles are sharp. No pleural abnormalities are noted. LUNG PARENCHYMA: The lungs are clear. ABDOMEN: The upper abdomen is clear. There is no subphrenic gas. BONES AND SOFT TISSUES: No bone or soft tissue abnormalities are noted. OTHER: None. IMPRESSION: NO ACTIVE CARDIOPULMONARY DISEASE. <Electronically signed by Oscar Guerra MD in OV> 05/05/171818 Dictated By: Oscar Guerra MD Dictated Date/Time: 05/05/171818 Transcribed Date/Time: 05/05/171818 Copy to: CC:Lali Keith DIRECTOR OF PROGRAM MANAGEMENT; Jerrell Aquino MD Imaging - [facility] Imaging - [facility] Imaging - [facility] [address] [address] ph [phone]) ph [phone]) ph ([phone]) 1 of 1 Assess/Plan/Problems-Billing Assessment: This is a 21 year old female with multiple ER visits for SOB since last October, currently being worked up and treated for asthma, now with EKG changes and continued SOB and reported chest pain this morning. - Patient Problems (1) SOB (shortness of breath) Code(s): R06.02 - SHORTNESS OF BREATH SNOMED Code(s): 597752412 Comment: - Likely persistent untreated asthma, however, now with EKG changes and alternating tachy/bettie, ECHO shows somewhat low EF (50-55%) and patient has admitted to buying street vicodin, but alternates with denying this. Question if this is r/t unknow meds? Patient is relatively uncooperative at times. - Peak Flow ordered (250-225) - taper steroids - Azithromycin 500x 5 days - Dr. Garcia consult appreciated (2) Leukocytosis Code(s): D72.829 - ELEVATED WHITE BLOOD CELL COUNT, UNSPECIFIED SNOMED Code(s) : 833355925 Comment: - Likely 2/2 steroids - Monitor, no fever (3) Glucosuria Code(s): R81 - GLYCOSURIA SNOMED Code(s): 21274551 Comment: - Likely 2/2 steroids - Monitor (4) Acute depression Code(s): F32.9 - MAJOR DEPRESSIVE DISORDER, SINGLE EPISODE, UNSPECIFIED SNOMED Code(s): 942248753 Comment: - Psych consult appreciated. Recommending ativan PRN for panic episodes and will need outpatient follow up. (5) Hyperthyroidism Code(s): E05.90 - THYROTOXICOSIS, UNSP WITHOUT THYROTOXIC CRISIS OR STORM SNOMED Code(s): 06922041 Comment: - Suppressed TSH may account for tachycardia, but not bradycardic episodes - Consult with Dr. Hernandez, however T3, T4, anti-TPO and TSI are not indicative of acute hyperthyroidism - US thyroid pending (6) Chest pain Code(s): R07.9 - CHEST PAIN, UNSPECIFIED SNOMED Code(s): 75106804 Comment: - Started this morning as per RN - Unsure if this is related to hx of chronic back pain of unknown etiology ( patient states had multiple workups with no diagnosis or pathology) - Troponin x 2, if negative, exercise stress in AM Status and Disposition: Was planning discharge today, with outpatient follow up with Pulmonology, however, with new chest pain, will order exercise stress in AM and see if this yields any results. I feel the patient's underlying behavioral issues may be a part of her complaints, along with untreated asthma and street vicodin use which her UDS is positive for but patient denies. Counseling and/or Coordination of Care Minutes: coordinated with patient and mother
[2017-05-09] MEDS: oxyCODONE/Acetamin 5/325 MG* TAB PO PRN ×2 (03:33→15:21)
[2017-05-09] MEDS: NS 0.9% 1000 ML* 1,000 ML IV SCH ×2 (03:34→13:01)
[2017-05-09] MEDS: Omeprazole CAP* 20 MG PO SCH (05:03)
--- NOTE | 2017-05-09 08:06 | PN ---
Progress Note - Progress Note Date of Service: 05/09/17 Note: Endocrine consultation follow up: Radiology: Patient Name: NYASIA YING Medical Record#: [id number] Ordering Physician: Levi Hernandez MD Acct.#: [id number] : 1995 Age: 21 Sex: F Location: [address] [place] [address] MEDICAL Exam Date: 05/08/17 0855 ADM Status: ADM IN Order Information: US THYROID Accession Number: [id number] CPT: 12982 Indication: Hyperthyroidism subclinical. Comparison: No relevant prior exams available on the [facility] PACS for comparison. Technique: Thyroid ultrasound. Estimated thyroid lobe volume based on Ellipsoid Volume = L x W x H x .53 with dimensions documented on PACS. Report: 4.5 mL estimated RIGHT thyroid lobe volume. 3.8 mL estimated LEFT thyroid lobe volume. 0.3 cm isthmus. Largely homogeneous glandular echotexture. RIGHT thyroid lobe mid anterior subcapsular: Sharply circumscribed 0.3 x 0.2 x 0.3 cm predominantly cystic nodule devoid of intrinsic vascularity or other suspicious complex features. Very low suspicion nodule based on morphology and minute size of doubtful clinical significance. LEFT thyroid lobe nodule superior: 0.2 x 0.2 x 0.2 cm predominant cystic nodule devoid of intrinsic vascularity or other suspicious complex features. Very low suspicion nodule based on morphology and minute size of doubtful clinical significance. IMPRESSION: 1. Normal range thyroid gland volume. 2. No suspicious focal thyroid lesions evident. Ref: 2015 [place] [employer] Management Guidelines for Adult Patients with Thyroid Nodules and Differentiated Thyroid Cancer. <Electronically signed by Jerrell Hall MD in OV> 05/08/17 1000 Dictated By: Jerrell Hall MD Dictated Date/Time: 05/08/17 1000 Transcribed Date/Time: 05/08/17 0956 Copy to: CC:Levi Hernandez MD; Cayetano Flaherty MD; Lance Bueno MD; Calixto Thompson MD; Jm Flores MD; Marin Cornelius MD; Michael Carrizales MD; Rodo Alfaro MD; Alfred Barrera MD; Radha Garcia MD; Rebel Campbell MD; Megan Olivares NPP; Jonah Palma MD; Lali Keith JAVA CORE DEVELOPER; Ramirez Isabel MD; Parmjit Tovar NP; Annemarie Santos NP; Damon Eid DO Imaging - [facility] Imaging - [place] [facility] Imaging - [facility] [address] [address] ph [phone]) ph [phone]) ph ([phone]) Assessment/plan: Subclinical hyperthyoidism: I have reviewed the images of the thyroid US - this is a normal thyroid. I see no nodules that could be a cause of hyperthyroidism. Also, this gland does not look like a Shanita's or Graves' disease gland. I note that her TSH has shown a downward trend and hence I would like to follow her up as an outpatient to ensure it returns to normal. If not, I will need to consider other more unusual possibilities, such as pituitary dysfunction as her TFTs are so normal. I do not think this is a cause of her dysrhythmias. I explained this to the patient and answered her questions.
[2017-05-09] MEDS ORDERED: Morphine INJ* 2 MG/ML 1 ML SYRINGE (TWO MG - NEW SYRINGE VERSION) IV ONE (08:40)
[2017-05-09] MEDS ORDERED: Azithromycin TAB* 250 MG ONE (12:57)
[2017-05-09] MEDS: Azithromycin TAB* 250 MG PO SCH (12:58)
[2017-05-09] MEDS ORDERED: predniSONE TAB* 20 MG PO SCH (14:00)
[2017-05-09 16:02] VITALS: BP 109/65
--- NOTE | 2017-05-11 11:59 | DS ---
CC: BHAVIN Argueta * DISCHARGE SUMMARY: DATE OF ADMISSION: 05/05/17 DATE OF DISCHARGE: 05/09/17 PRIMARY CARE PROVIDER: BHAVIN Argueta MY ATTENDING PHYSICIAN WHILE IN THE HOSPITAL: Dr. Nathalie Montero.* (DICTATED BY SHANIQUA PALAFOX) CONSULTING PROVIDERS: 1. Dr. Levi Hernandez of Endocrinology. 2. Megan Olivares NP, of Psychiatry. 3. Dr. Radha Garcia of Pulmonology. PRIMARY DISCHARGE DIAGNOSES: 1. Asthma exacerbation. 2. Sinus tachycardia. 3. Chest pain. SECONDARY DISCHARGE DIAGNOSES: History of urolithiasis and pyelonephritis. STUDIES DONE WHILE IN THE HOSPITAL: Chest x-ray from 05/05/17 read as no active cardiopulmonary disease. Electrocardiogram from 05/05/17 shows normal sinus rhythm, normal axis, QTc of 452, no ST-segment changes, no other abnormalities, rate of 99. EKG repeat from 05/05/17 shows tachycardia, no other significant changes from previous exam, possible early repolarization in V2 and V3. EKG from 05/07/17 shows new T waves, new rate of 56, single PAC. EKG from 05/08/17 shows normal sinus rhythm, sinus arrhythmia, PAC resolved, no other significant changes, continued slight repolarization in V2 and V3. Transthoracic echocardiogram from 05/07/17 shows left ventricular systolic function lower limits of normal. Estimated ejection fraction 50% to 55%, right ventricular global systolic function normal, no evidence of aortic stenosis, prolapse of the anterior leaf of the mitral valve, there is mild mitral regurgitation, mild regurgitation jet is eccentric, physiological tricuspid regurgitation, Unable to estimate right ventricular systolic pressure, no significant pericardial effusion. Thyroid ultrasound from 05/08/17 read as normal range thyroid volume, no suspicious focal thyroid lesions evident. MEDICATIONS AT DISCHARGE: 1. Adderall 30 mg p.o. b.i.d. 2. Tylenol 650 mg p.o. q.6 hours as needed. 3. Asmanex 220 mcg MDI 1 puff inhalation daily. 4. Prednisone 60 mg p.o. daily. 5. Albuterol inhaler 1 to 2 puffs inhalation q.4 hours as needed. New medications at discharge: 1. Tylenol. 2. Asmanex. 3. Prednisone. 4. Albuterol. Medications discontinued at discharge: None. HOSPITAL COURSE: This is a brief summary of the patient's presentation. For more details, please see the history and physical from Dr. Marin Cornelius, on 05/05/17. In brief, the patient is a 21-year-old female with past medical history significant for the above, who presents with shortness of breath, which began in October 2016, has been several times to Urgent Care with various diagnoses of asthma or bronchitis. The patient was referred to Dr. Radha Garcia of Pulmonology, but has not gone yet. The patient's shortness of breath occurred with exertion, improved with albuterol nebulizers. The patient had a syncopal episode on the day of admission while in the shower, hit her head without trauma. The patient also had nausea with small volumes of emesis. The patient denies other abnormalities including chest pain, diarrhea, palpitations , or sweats. The patient was admitted, started on DuoNeb nebulizers, IV Solu- Medrol, azithromycin. Pulmonary consult is ordered. The patient was also tachycardic, most likely secondary tachycardia and dehydration. The patient's heart rate remained elevated, this was clearly due to the DuoNeb and albuterol. The patient was given magnesium, which helped with her wheezing and helped with her shortness of breath and tachycardia. The patient was short of breath throughout the day and stated that she wanted to go home without seeing the network control technician. The patient's heart rate went up to 180s. It was identified as SVT in the record, but review showed that it was most likely sinus tachycardia. The patient was seen in consultation by Dr. Radha Garcia and this was deemed likely to be reactive airway disease or asthma. The patient was continued on Solu-Medrol and her DuoNeb was stopped due to the tachycardia. The patient continued to be histrionic and stated that she wanted to go home and . The patient was seen in consultation by Psychiatry and they recommended using benzodiazepines for control of her anxiety while in the hospital, but not to continue as an outpatient. The patient states that she did not follow with an outpatient psychiatrist for many years. The patient was seen in consultation by Dr. Levi Hernandez due to a decreased TSH. It was deemed likely that her TSH was factitiously low as her T3 and T4 were normal. The patient had no signs of Graves' disease. The patient's thyroid ultrasound was normal. The patient complained of chest pain in the morning of 05/08/17. The patient had troponin 2 drawn, which was negative. The patient had a stress test on the morning of 05/09/17, which showed no ST segment changes with exercise. This was discussed with Dr. Miller of Cardiology and she did a formal consultation. The patient's heart rate was in the 50s to 60s during this time, but no recurrence of sinus tachycardia, SVT or other issues. All of this was discussed at length with the patient's family. On the day of discharge, it was recommended that she follow up with Dr. Hernandez as he recommended outpatient for repeat of TSH, though it was discussed this was an unlikely cause of any of her symptoms, it was also stressed that despite her previous episodes of tachycardia that her stress test showed that she did not have any stress-induced EKG changes when her heart rate reached approximately 180, which was the level it had been going up to in sinus tachycardia. It was discussed that the prednisone taper would help keep inflammation down in her airways and that she will be started on a maintenance inhaler of an inhaled corticosteroid and she should use her rescue inhaler only as needed for wheezing or increased shortness of breath and should not overuse it and return to hospital if she finds herself to be overusing it. It was discussed the patient should follow up as well with Cardiology for possible event monitor if deemed necessary by her primary care doctor. 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 The patient should also follow up with Dr. Garcia for long- term management of her asthma. The patient's family stated agreement with this discharge. PHYSICAL EXAMINATION ON DAY OF DISCHARGE: General: The patient is a 21-year- old female, who appears stated age, sitting comfortably in bed, in no acute distress. Vital signs at the time of discharge: Temperature 97.8, pulse rate 81 , respiratory rate 18, oxygen saturation 100% on room air, blood pressure 109/ 65. HEENT: Head normocephalic, atraumatic. Sclerae anicteric. No conjunctival injection. Nasal mucosa moist. Oral mucosa moist. No pharyngeal erythema. No exudate or discharge. Cardiac: Regular rate and rhythm. No clicks, murmurs, gallops, or rubs. Pulses 2+ in bilateral dorsalis pedis, posterior tibialis, and radial areas. Respiratory: Clear to auscultation bilaterally. No wheezes, rales, or rhonchi. Good air exchange bilaterally. Abdomen: Soft, nontender, nondistended. Bowel sounds present. Normoactive in all 4 quadrants. No hepatosplenomegaly or abdominal bruits auscultated. Genitourinary: No suprapubic tenderness or CVA tenderness. Skin: Clean, dry, and intact. No rash. Musculoskeletal: Straight leg raise is negative bilaterally. No decreased range of motion, deformity or other abnormality. Pain with palpation over the musculature of the lower back. Neuro: Cranial nerves II through XII grossly intact. No focal deficits. Psychiatric: The patient appears anxious and very concerned about her medical condition. LABORATORY DATA ON DAY OF DISCHARGE: On 05/07/17, white blood cell count 13.6, hemoglobin 11.2, platelet count 297. Sodium 136, potassium 4.3, chloride 107, carbon dioxide 24, anion gap 5, BUN 16, creatinine 0.61, glucose 101, calcium 8.9, magnesium 2.0. Troponin I 0.01 x2. CRP high sensitivity 0.32. TSH 0.13. DISCHARGE PLAN: The patient will be discharged to home. The patient will have support from her mother. The patient has the following discharge needs: The patient will follow up with Dr. Garcia, Cardiology, as needed; her primary care provider, Dr. Hernandez, Endocrinology; an outpatient psychiatrist or a maintenance painter for management of her lower back pain. The patient should return to the hospital for significant worsening in her respiratory status that are not able to be controlled with use of her rescue inhaler as prescribed. The patient should finish the prednisone taper as prescribed. The patient admitted to buying Vicodin on the street while in the hospital. The patient should obtain prescriptions for any medication that she feels that she needs. The patient should engage in activity as tolerated with no restrictions. The patient should have a regular unrestricted diet as well. TIME SPENT: Approximately 75 minutes was spent on this discharge, 45 of which was spent [id number] with the patient obtaining history and physical and discussing treatment plan. SHANIQUA PALAFOX [id number]/[facility] #: [id number] [facility]
== END 2017-05-09 17:45 | disposition home health service (06) | DRG 141 ==
LOC: ED 15:47 → MED 19:48
PROVIDERS: ADMIT Hospitalist; ATTEND Internal Medicine
DX: J45.901 Unspecified asthma with (acute) exacerbation (principal); I08.1 Rheumatic disorders of both mitral and tricuspid valves; F32.9 Major depressive disorder, single episode, unspecified; Z96.0 Presence of urogenital implants; K21.9 Gastro-esophageal reflux disease without esophagitis; F12.90 Cannabis use, unspecified, uncomplicated; R81 Glycosuria; D72.829 Elevated white blood cell count, unspecified; E05.90 Thyrotoxicosis, unspecified without thyrotoxic crisis or storm; R07.9 Chest pain, unspecified; G89.29 Other chronic pain; M54.9 Dorsalgia, unspecified; F41.9 Anxiety disorder, unspecified; E86.0 Dehydration; R00.0 Tachycardia, unspecified; Z87.442 Personal history of urinary calculi; Z72.89 Other problems related to lifestyle; Z87.891 Personal history of nicotine dependence; Z84.2 Family history of other diseases of the genitourinary system; Z82.5 Family history of asthma and other chronic lower respiratory diseases; Z81.8 Family history of other mental and behavioral disorders; Z79.52 Long term (current) use of systemic steroids
CPT/HCPCS: 36415; 71046; 76536; 80048; 80053; 80307; 81003; 81025; 83605; 83735; 84439; 84443; 84445; 84481; 84484; 84702; 85025; 85379; 85652; 86140; 86141; 86376; 87070; 87077; 87086; 87186; 87205; 87502; 93005; 93306; 94640; 94760; 99213; 99285; A9270-GY; G0463; J1885; J2060; J2270; J2920; J2930; J3475; J7512

== ENCOUNTER 2017-08-03 05:06 | Inpatient (IN) | payer BC ==
[2017-08-03] MEDS ORDERED: EPINEPHrine SYR 0.1 MG/ML* (1:10,000) SYRINGE ONE (05:10)
[2017-08-03] MEDS ORDERED: Sodium Bicarbonate 8.4%* 50 ML SYRINGE ONE (05:11)
[2017-08-03] MEDS ORDERED: Norepinephrine VIAL* 1 MG/ML 4 ML VIAL ONE (05:36)
[2017-08-03 05:42] LABS: Hematocrit 36 % (35-47); Hemoglobin 11.2 g/dl (12.0-16.0); Mean Corpuscular HGB Conc 31 g/dl (31-36); Mean Corpuscular Hemoglobin 29 pg (27-31); Mean Corpuscular Volume 95 fL (80-97); Mean Platelet Volume 8.4 um3 (7.4-10.4); Platelet Count 320 10^3/ul (150-450); Red Cell Distribution Width 14 % (10.5-15)
[2017-08-03 05:47] LABS: INR 1.02 (0.77-1.02)
[2017-08-03] MEDS ORDERED: Albuterol 2.5 MG/3 ML NEB.SOL* (0.083%) ONE (05:50)
[2017-08-03 05:55] LABS: EGFR Non-African American 56.8 (>60)
[2017-08-03] MEDS ORDERED: Albuterol 2.5 MG/3 ML NEB.SOL* (0.083%) INH ONE (06:01)
[2017-08-03] MEDS ORDERED: Adenosine* 3 MG/ML VIAL IV PUSH ONE ×2 (06:52→07:05)
[2017-08-03] MEDS ORDERED: Adenosine* 3 MG/ML VIAL ONE (06:56)
[2017-08-03] MEDS ORDERED: Magnesium Sulfate 2 GM IV* 2 GM/50 ML BAG IVPB ONE (06:57)
[2017-08-03] MEDS ORDERED: Calcium Gluconate INJ* 1 GM in NS 0.9% 50 ML* 50 ML IVPB ONE (06:59)
[2017-08-03] MEDS ORDERED: FENTANYL PCA SCH (07:00)
[2017-08-03] MEDS ORDERED: Metoprolol Tartrate IV* 1 MG/ML 5 ML VIAL ONE (07:07)
[2017-08-03] MEDS ORDERED: Calcium CHLORIDE 10% SYRINGE* 1 GM/10 ML ONE (07:07)
[2017-08-03] MEDS ORDERED: methylPREDNISolone 125 MG* 2 ML VIAL ONE (07:07)
[2017-08-03] MEDS ORDERED: Diltiazem IV* 5 MG/ML 5 ML VIAL (for loading dose/IV Push) (25 MG) ONE (07:08)
[2017-08-03] MEDS ORDERED: CALCIUM GLUCONATE* 1 GM/10 ML VIAL (in Pyxis) ONE (07:08)
[2017-08-03] MEDS ORDERED: Metoprolol Tartrate IV* 1 MG/ML 5 ML VIAL IV PRN (07:10)
[2017-08-03] MEDS ORDERED: Diltiazem IV* 5 MG/ML 5 ML VIAL (for loading dose/IV Push) (25 MG) IV SLOW PU ONE (07:23)
--- NOTE | 2017-08-03 07:41 | PN ---
Hospitalist Progress Note Pt arrived to ICU. Pt in narrow complex tachycardia in 160-170s. Hypertensive. Adenosine 6mg at 701 no change Adenosince 12mg at 703 with rate to 130s briefly, looked like atrial fibrillation 2g Mag, 5 metoprolol at 711 with rate to 120-130s 10mg Dilt 730 with rate to 70-80s. Irregular. BP to 140/100s from 180-190s systolic CTHead pending. Euthermia protocol started. 1g Calcium Gluconate
[2017-08-03] MEDS ORDERED: Fentanyl PCA (Continuous Infusion)* 20 ML PCA SCH (08:00)
[2017-08-03] MEDS: Diltiazem DRIP* 100 MG/100 ML ADDV.BAG IVPB SCH (08:36)
--- NOTE | 2017-08-03 08:37 | RAD ---
Indication: Cardiac arrest. CT of the brain was performed without IV contrast. Streak artifact limits examination especially of the méndez-white junction. Ventricular structures appear small. There is no evidence of intracranial mass or hemorrhage. The basilar cisterns are open however I cannot totally exclude diffuse edema as streak artifact severely limits examination. No obvious hematoma is noted. No extra-axial fluid collections are noted. The bony structures are grossly unremarkable. IMPRESSION: No definite parenchymal abnormalities are identified although evaluation is limited due to streak artifact from piercings. The méndez-white junction evaluation is severely limited. I cannot totally exclude diffuse edema.
--- NOTE | 2017-08-03 08:42 | RAD ---
Indication: ET tube adjustment. Single frontal view of the chest performed at 0559 hours was reviewed. Comparison is made with previous exam dated August 03, 2017. No mediastinal shift is noted. Heart is of normal size and configuration. Lung medina appear clear. ET tube and nasogastric tube appear to be in appropriate position. IMPRESSION: NO ACTIVE CARDIOPULMONARY DISEASE IS NOTED.
[2017-08-03] MEDS ORDERED: fentaNYL* 50 MCG/ML 2 ML VIAL (100 MCG VIAL) IV SLOW PU PRN (08:47)
[2017-08-03] MEDS ORDERED: Meperidine SYRINGE* 50 MG/ML IV PRN (08:48)
[2017-08-03] MEDS ORDERED: methylPREDNISolone 125 MG* 2 ML VIAL IV STA (08:50)
[2017-08-03] MEDS ORDERED: Terbutaline INJ* 1 MG/ML VIAL SUBCUT ONE (08:50)
--- NOTE | 2017-08-03 08:51 | RAD ---
Indication: Tube change. Single frontal view of the chest performed at 0653 hours was reviewed. Comparison is made with previous exam dated earlier the same day ET tube is at the level of the aortic arch proximal to centimeters proximal to the martine... Nasogastric tube is in appropriate location. IMPRESSION: ET TUBE AND NASOGASTRIC TUBE APPEARS IN APPROPRIATE LOCATION.
[2017-08-03] MEDS ORDERED: methylPREDNISolone SOD 40 MG* 1 ML VIAL IV SCH (09:00)
[2017-08-03] MEDS: Albuterol 2.5 MG/3 ML NEB.SOL* (0.083%) INH SCH ×4 (09:06→20:10)
--- NOTE | 2017-08-03 09:12 | RAD ---
Indication: Respiratory failure. Single frontal view of the chest performed at 0519 hours was reviewed. Comparison is made with previous exam dated May 05, 2017. No mediastinal shift is noted. Heart is of normal size and configuration. Lung medina appear clear. ET tube appear to be appropriate location. IMPRESSION: ET TUBE APPEARS TO BE APPEARS TO BE IN APPROPRIATE LOCATION. LUNGS ARE CLEAR.
[2017-08-03] MEDS: Propofol* 100 ML IV SCH ×3 (09:25→19:53)
[2017-08-03 09:34] LABS: Urine Appearance Cloudy; Urine Blood 3+ (Negative); Urine Color Amber; Urine Ketones Negative (Negative); Urine Protein 2+(100 mg/dL) (Negative); Urine Specific Gravity 1.014 (1.010-1.030); Urine Urobilinogen Negative (Negative)
--- NOTE | 2017-08-03 10:01 | PN ---
Progress Note - Progress Note Date of Service: 08/03/17 Note: Arterial Line Procedure Note Indication: frequent abgs, hemodyn monitoring Diagnosis: cardiac arrest, asthma exaccerbation, hypercapneic respiratory failure Consent was obtained from mother , placed in bedside chart. Risk/Benefits of procedure explained. - Prior labs/history was reviewed prior to procedure - Full sterile precautions with chlorhexidine/full drapes/gowns/gloves utilized - left femoral artery visualized with US - Vessel accessed with return of pulsatile blood. 1 attempt was made to access vessel. A cathetor was threaded over wire into vessel. Good arterial waveform was observed on monitor. - Arterial Catheter was sutured to site - Adequate hemostasis was achieved, EBL <5 cc No immediate complications noted, patient tolerated procedure well. Dressing applied to site. Edgar Nichols MD Final Block Press Operator (electronically signed)
--- NOTE | 2017-08-03 10:02 | PN ---
Progress Note - Progress Note Date of Service: 08/03/17 Note: Central Line Procedure Note Indication: vascular access Diagnosis: cardiac arrest, asthma exaccerbation, hypercapneic respiratory failure Consent was obtained from mother , placed in bedside chart. Risks of procedure were explained if possible, all risks of pain/discomfort, bleeding, infection, PTX, Hemotx, need for chest tube, air/wire embolism, vessel injury, , and failed procedure disclosed and understanding verbalized - right femoral vein on ultrasound showed small nonocclusive thrombus in CFV, so site was aborted and switched to left femoral vein - Prior labs/history was reviewed prior to procedure - Full sterile precautions with chlorhexidine/full drapes/gowns/gloves utilized - left femoral vein visualized with ultrasound - Vessel accessed under ultrasound guidance with return of nonpulsatile blood. A guidewire was passed into vessel and confirmed in vessel with ultrasound. 1 attempt was made to access vessel. Vessel was dilated and cathetor was passed over wire into vessel. All ports demonstrated good blood return and flushed. Catheter was sutured to site and dressing applied Adequate hemostasis was achieved, EBL <5 cc No immediate complications noted, patient tolerated procedure well. Edgar Nichols MD [facility] (electronically signed)
--- NOTE | 2017-08-03 10:13 | CONSULT ---
Consult Consult: Consultation Note Critical Care Requesting Physician: Dr Rodo Alfaro Reason for consult: cardiac arrest, respiratory failure Limitations in history/physical: intubated, post arrest; history from chart/ physicians and mother/boyfriend at bedside. Date of consult: 08/03/2017 HPI: 21y F pmhx of asthma (diag summer 2016); Family reported she became acutely more short of breath last night around 8-9pm, ran out of albuterol inhaler. Boyfriend reports she was short of breath for days and it was increasing, she was using inhaler every day. No sick contacts/fevers. Chills+. No n/v/abd pain/diarrhea/cough/sputum. She was awake all night and then went to her mothers house at 4am and immediately looked poor and placed in car to bring to ER. On route she was in distress and looked as if she stopped breating. EMS called and they started CPR. On arrival, CPR continued, brought to ER with continued CPR, intubated. Total time from CPR to ROSC ~30min. Initial BP in ER 80s, tachycardic. CXR clear of infiltrate/ptx. ABG demonstrated ph 7.0, PCO2 96 , consistent with acute hypercapnea. She was moved to the ICU. In ICU in water purifier, tachycardic to 160s, given adenosine, Cardizem, metoprolol. Tele monitor shows irregular pattern when slowed consistent with afib. CT head done showing poor méndez-white differentiation it seems. Mother and boyfriend at bedside who gave history. They understand her status. Emergent central/arterial lines placed. Bedside Cardiac US by me showing poor LV motion, severely reduced lvef. no effusion noted. RV size appears normal and hyperdynamic. 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 Allergies: NKDA Home Medications: Amphetamine MIXED SALTS TAB* 30 mg PO BID 11/18/13 [History Confirmed 05/05/17] Acetaminophen TAB* [Tylenol TAB*] 650 mg PO Q6H PRN tab 05/09/17 [Rx] Albuterol HFA INHALER* [Ventolin HFA Inhaler*] 1 - 2 puff INH Q4H PRN #1 mdi [Rx] Mometasone 220 MCG MDI * [Asmanex 220 MCG MDI *] 1 puff INH DAILY #1 mdi [Rx] predniSONE TAB* [Deltasone TAB*] 60 mg PO DAILY #21 tab 05/09/17 [Rx] Tele: initially rapid afib, now Sinus tachycardia Vitals: Vital Signs Temp 92.3 F 08/03/17 06:41 Pulse 107 08/03/17 09:23 Resp 20 08/03/17 09:47 BP 174/142 08/03/17 06:41 Pulse Ox 100 08/03/17 09:23 Intake & Output 08/02/17 08/03/17 08/03/17 18:59 06:59 18:59 Weight 133 lb 9.602 oz O2/Vent: AC 16/450/+5/40%; noted slow expiratory bong and incomplete exhalation ; breathing above vent rate at 21 Infusions: none Current Medications: Albuterol (Ventolin 2.5 Mg/3 Ml Neb.Teresa*) 2.5 mg INH Q4H RANJANA Last Admin: 08/03/17 09:06 Dose: 2.5 mg Fentanyl Citrate (Fentanyl*) 50 mcg IV SLOW PU Q4H PRN PRN Reason: shivering Last Admin: 08/03/17 09:26 Dose: 50 mcg Diltiazem HCl (Cardizem Iv Advan*) 100 mg in 100 mls @ 5 mls/hr IVPB Q20H RANJANA; 5 MG/HR PRN Reason: Protocol Last Admin: 08/03/17 08:36 Dose: 5 mls/hr Propofol (Diprivan*) 100 mls @ 7.272 mls/hr IV .(Initial Rate) RANJANA; 20 MCG/KG/ MIN PRN Reason: Protocol Last Admin: 08/03/17 09:25 Dose: 7.272 mls/hr Meperidine HCl (Demerol Syringe*) 25 mg IV Q4H PRN PRN Reason: shivering Last Admin: 08/03/17 09:47 Dose: 25 mg Methylprednisolone Sodium Succinate (Solu-Medrol 40 Mg) 40 mg IV Q8H RANJANA Metoprolol Tartrate (Lopressor Iv*) 5 mg IV Q10M PRN PRN Reason: TACHYCARDIA Last Admin: 08/03/17 07:21 Dose: 5 mg Physical Exam: General: intubated, unresponsive; shivering+ Head: normocephalic, atraumatic HEENT: no pallor, no icterus, moist mucous membranes Neck: soft, supple, no jvd CVS: tachycardic, regular, no murmur Resp: bilateral air entry, no rhales, coarse bilateral wheezing+, no rhonchi, no acc muscle use Abdomen: soft, nondistended, bs+ Ext: pulses+, cold, no edema Skin: intact Neuro: intubated, unrepsonsive; bilateral dilated pupils/fixed, no gag; shivering with some myoclonic upper ext jerking movements noted Labs: Laboratory Results - last 24 hr 08/03/17 08/03/17 08/03/17 05:24 05:24 05:24 WBC RBC Hgb Hct MCV MCH MCHC RDW Plt Count MPV INR (Anticoag Therapy) 1.02 APTT 64.4 H Patient Temperature ABG pH ABG pH (Temp Correct) ABG pCO2 ABG pCO2 (Temp Corrct ABG pO2 ABG pO2 (Temp Correct ABG HCO3 ABG O2 Saturation ABG Base Excess Respiration Rate O2 Delivery Device Ventilator Type Vent Mode FiO2 Inspiratory Time PEEP Pressure Support Pressure Control EPAP IPAP BiPAP Sodium 138 L Potassium 4.6 Chloride 98 L Carbon Dioxide 17 L Anion Gap 23 H BUN 11 Creatinine 1.18 H Est GFR ( Amer) 73.0 Est GFR (Non-Af Amer) 56.8 BUN/Creatinine Ratio 9.3 Glucose 395 H Lactic Acid Calcium 8.7 Ionized Calcium 4.40 L Phosphorus 12.0 H Troponin I 0.01 Beta HCG, Quant < 0.60 Urine Color Urine Appearance Urine pH Ur Specific Harr[place] Urine Protein Urine Ketones Urine Blood Urine Nitrate Urine Bilirubin Urine Urobilinogen Ur Leukocyte Esterase Urine WBC (Auto) Urine RBC (Auto) Ur Squamous Epith Cells Urine Bacteria Hyaline Casts Urine Yeast Urine Glucose Urine Ascorbic Acid Blood Type Antibody Screen 08/03/17 08/03/17 08/03/17 05:24 05:24 05:24 WBC 13.0 H RBC 3.80 L Hgb 11.2 L Hct 36 MCV 95 MCH 29 MCHC 31 RDW 14 Plt Count 320 MPV 8.4 INR (Anticoag Therapy) APTT Patient Temperature ABG pH ABG pH (Temp Correct) ABG pCO2 ABG pCO2 (Temp Corrct ABG pO2 ABG pO2 (Temp Correct ABG HCO3 ABG O2 Saturation ABG Base Excess Respiration Rate O2 Delivery Device Ventilator Type Vent Mode FiO2 Inspiratory Time PEEP Pressure Support Pressure Control EPAP IPAP BiPAP Sodium Potassium Chloride Carbon Dioxide Anion Gap BUN Creatinine Est GFR ( Amer) Est GFR (Non-Af Amer) BUN/Creatinine Ratio Glucose Lactic Acid 17.7 H* Calcium Ionized Calcium Phosphorus Troponin I Beta HCG, Quant Urine Color Urine Appearance Urine pH Ur Specific [place] Urine Protein Urine Ketones Urine Blood Urine Nitrate Urine Bilirubin Urine Urobilinogen Ur Leukocyte Esterase Urine WBC (Auto) Urine RBC (Auto) Ur Squamous Epith Cells Urine Bacteria Hyaline Casts Urine Yeast Urine Glucose Urine Ascorbic Acid Blood Type O Positive Antibody Screen Negative 08/03/17 08/03/17 05:35 09:00 WBC RBC Hgb Hct MCV MCH MCHC RDW Plt Count MPV INR (Anticoag Therapy) APTT Patient Temperature Not Reportable ABG pH < 7.00 L* ABG pH (Temp Correct) Not Reportable ABG pCO2 96 H* ABG pCO2 (Temp Corrct Not Reportable ABG pO2 437 H ABG pO2 (Temp Correct Not Reportable ABG HCO3 TNP ABG O2 Saturation 101.0 H ABG Base Excess TNP Respiration Rate Not Reportable O2 Delivery Device ambu Ventilator Type Not Reportable Vent Mode Not Reportable FiO2 100 Inspiratory Time Not Reportable PEEP Not Reportable Pressure Support Not Reportable Pressure Control Not Reportable EPAP Not Reportable IPAP Not Reportable BiPAP Not Reportable Sodium Potassium Chloride Carbon Dioxide Anion Gap BUN Creatinine Est GFR ( Amer) Est GFR (Non-Af Amer) BUN/Creatinine Ratio Glucose Lactic Acid Calcium Ionized Calcium Phosphorus Troponin I Beta HCG, Quant Urine Color Maria Dolores Urine Appearance Cloudy Urine pH 6.0 Ur Specific [place] 1.014 Urine Protein 2+(100 mg/dl) A Urine Ketones Negative Urine Blood 3+ A Urine Nitrate Negative Urine Bilirubin Negative Urine Urobilinogen Negative Ur Leukocyte Esterase Negative Urine WBC (Auto) 3+(>20/hpf) A Urine RBC (Auto) 3+(>10/hpf) A Ur Squamous Epith Cells Present A Urine Bacteria 1+ A Hyaline Casts Present A Urine Yeast Present A Urine Glucose 3+(>=500 mg/dl) A Urine Ascorbic Acid * A Blood Type Antibody Screen Imaging: CT brain 08/03 - reviewed; poor méndez-white differentiation CXR 08/03 - ett above martine, no ptx or effusion/infiltrate Assessment: 21y F pmhx of asthma (diag summer 2016); Comes in for increasing shortness of breath for days, progressively worse the night before. Respiratory arrest on route to hospital, EMS called, CPR started, ROSC after 30min in ER. Hypercapneic on arrival. -PEA Cardiac Arrest /2 to Acute hypercapneic Respiratory Failure -Acute ASthma Exaccerbation -Encephelopathy, suspect hypoxic/ischemic -New-onset atrial fibrillation with rapid ventricular rate -Lactic acidosis 2 to hypoperfusion/cardiac arrest Plan: Neuro- s/p PEA arrest. Was not sedated or given sedation in ER. Fixed dilated pupils, poor CT brain with some loss of méndez-white diff. Shivering+. No gag currently. May have suffered acute severe brain injury from cardiac arrest. AT this point will give therapeutic hypothermia, maintain 35C for neuroprotection. Sedation and shivering tx. Avoid fevers. Repeat CT in 48 hours of it new neuro findings. Consult neurology. CVS- s/p PEA arrest, likely from respiratory arrest. Currently hemodyn stable, no pressors needed, BP 140-150s. Rapid afib seems converted to sinus tachy. On cardizem infusion, cont at 10mg/hour to slow her down more. TTE to eval LV fxn. Obtain VBG (though from femoral line). Trend LA. IVF LR infusion. Re-eval if inotropes needed. Resp- intubated. Changed to AC 16/45/+5/40%, breathing above vent rate. acute hypercapneic resp fialure / to acute asthma exacc. check influenza. sputum cultures. ABG now. Solumedrol 125mg x1 and then 40mg iv q8h. Bronchodilators q4h RTC. CXR without acute findings. ID- afebrile, now hypothermia. Placed on hypothermia/euthermia protocol. WBC 13. Will cover with Empir[employer] CAP coverage for now. Sputum cx if able, blood cx. CXR without infiltrate. GI- NPO. insert NGT. PPI for GI protection/on steroids/intubated. check LFTs Renal- Cr okay. K okay. Repeat BMP. Trend LA. Nick+ Heme- hg okay. plt okay. Not on AC. no bleeding noted. Check LE duplex for DVT eval. DVT prophlaxis, mech/chem. Endo- fingersticks q2h Musculsk- bedrest, pressure ulcer proph Wounds- none Nutrition- NPO DVT prophylaxis: SCDs GI prophylaxis: PPI IV Central Line: left fem veing 08/03 Arterial Line: left fem art 08/03 Nick Cathetor: yes Disposition: ICU Code Status: full code Total Critical Care time is 90 minutes, excluding procedures/teaching Edgar Nichols MD Manager Credit (Electronically Signed)
[2017-08-03] MEDS ORDERED: Midazolam* 1 MG/ML 2 ML VIAL (2 MG) IV ONE (10:16)
[2017-08-03] MEDS ORDERED: Dextrose 50% Syringe 50 ML* 25 GM/50 ML SYRINGE IV PUSH PRN (10:58)
[2017-08-03 11:01] LABS: EGFR Non-African American 64.9 (>60)
[2017-08-03] MEDS ORDERED: NS 0.9% 500 ML* 500 ML IV ONE (11:18)
--- NOTE | 2017-08-03 11:32 | HP ---
HISTORY AND PHYSICAL: DATE OF ADMISSION: 08/03/17 PRIMARY CARE PROVIDER: Lali Keith NP ADMITTING PROVIDER: Rodo Alfaro MD CHIEF COMPLAINT: Cardiac arrest (asystole then PEA) in the setting of shortness of breath/asthma exacerbation/hypercapnic respiratory failure. HISTORY OF PRESENT ILLNESS: Kaye Hilton is a 21-year-old female with past medical history of asthma, kidney stones, pyelonephritis, anxiety, depression with recent admission 05/05/17 to 05/09/17 for asthma exacerbation complicated by SVT and chest pain. At that time, she had had EKG, exercise stress test and echocardiogram, which showed preserved ejection fraction. She was also evaluated by Dr. Radha Garcia of Pulmonology and Psychiatry as she had said at one point that she wanted to go home and "." History is from EMR and mother Francie Lara who is at bedside. Pt was discharged and initially doing better on her inhalers (albuterol and mometasone) and a 15 day prednisone taper( initially prednisone 60 mg p.o. daily). She filled additional 5 day course of prednisone, refilled ventolin and got clarithromycin in late June. Over the last few days prior to admission she seemed to be getting more short of breath." Pt believes her asthma inhaler ran out the day (08/02/17) prior to admission and she told her mother around 9 p.m. that night that she felt like she may have to seek medical attention for shortness of breath but did not want to go then. Her boyfriend, Len later brought her to her mother's house in the clammer hours around 4:15 with the paitent in respiratory distress and they started to drive to [facility]. However, the mother pulled to the side of the road as the patient seemed to get even more short of breath and so that she could call 911 to alert them of the situation and pending arrival. Patient was then was noted by mother to have stopped breathing and mother & boyfriend were given instructions to start CPR approximately 04:30 morning of admission. Per the code sheet, she was "found" around 04:43 and EMS "arrived" around 04:50. She was noted to by cyanotic. Telemetry was concerning for asystole and then reported PEA. She received 3 rounds of epinephrine and Narcan in the field and during transport. The Narcan reportedly had no effect ( of note suboxone had been found in her purse). She received an IO and was intubated in field. Pt arrived in [facility] Emergency Room around 05:08 and received additional one of epi here at 05:10. At 05:11, she received sodium bicarb and return of the spontaneous circulation was obtained at 05:13. She has never attested to using any opioids to her mother and boyfriend Len who is at bedside denied any knowledge or observation of taking any opioids on the day of admission. Mother attests that patient has an extreme needle phobia. Patient was referred to hospitalist service for admission to the ICU. She is intubated, she had lactic acid of 17.7. She has a GCS of 3T, not responding to any noxious stimuli, with dilated (~5-6mm) barely responsive pupil on left, no response on right. She had no gag reflex upon intubation. Her initial ABG was significant for pH below 7.00, pCO2 of 96, pO2 of 437, and O2 of 101. Other code labs pending. Her ET tube was exchanged (upsized to 7.5 from 6.5) in the ED given difficulty bagging. PAST MEDICAL HISTORY: Anxiety, depression, asthma, urolithiasis, pyelonephritis , narrow complex tachycardia. MEDICATIONS: per EMR and cross reference of outpatient pharmacy records, not able to be verified by patient. 1. Mometasone(Asmanex) 1 puff inhaled daily. (unclear if still had/using. originally prescribed 05/09/17) 2. Amphetamine Mixed Salt tabs 30 mg p.o. b.i.d. 3. Ventolin (Albuterol) inhaler 1 to 2 puffs inhaled q.4 hours p.r.n. (last filled 07/11) On 07/11 was prescribed 5 days of 40mg prednisone course and clarithromycin 500mg BID for 10 days. On 05/20/17 prescribed 30 percosets. ALLERGIES: No known drug allergies. FAMILY HISTORY: Not contributory. 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 Occasionally smokes marijuana. Medical surrogate is mother, Francie Hilton. REVIEW OF SYSTEMS: Not obtainable at this time given GCS 3T. Reportedly worsening SOB over last days. PHYSICAL EXAMINATION GENERAL: Acutely Ill, GCS 3T, nonresponsive to any stimuli. VITAL SIGNS: Temperature 96.6; blood pressure initially 81/67 on Levophed, now titrating down, pulse rate in the 120s to 140s. HEENT: Normocephalic, atraumatic. Intubated. Dilated pupils 5-6 mm bilaterally.NSI PULMONARY: Lungs with referred coarse ventilated sounds. CARDIOVASCULAR: Tachycardic. No murmurs, rubs or gallops. ABDOMEN: Soft, nontender.nondistended. EXTREMITIES: Warm, well perfused. No peripheral edema. SKIN: No lesions. No rashes. Does have multiple skin piercings. NEURO: GCS3T. not responsive to any stimuli. no gag. pupils 5-6mm, barely responsive on left, nonresponsive on right. DIAGNOSTIC STUDIES/LAB DATA: White count 13.0, hemoglobin 11.2. INR 1.02. Platelets 320. ABG: pH ess than 7, pCO2 96, pO2 437, pO2 101. Sodium 138, potassium 4.6, chloride 98, carbon dioxide 17, BUN 11, creatinine 1.18, glucose 395, lactic acid 17.7, calcium 8.7, ionized calcium 4.40, phosphorus 12.0. Troponin 0.01. Beta hCG less than 0.60. Chest x-ray demonstrating status post ET tube placement. No infiltrates. EKG: Demonstrating ectopic atrial tachycardia. No P waves present. No ST elevations or depressions. Poor R-wave progression. QTc 550. ASSESSMENT AND PLAN: Kaye Hilton is a 21-year-old female with past medical history of asthma with recent exacerbations, ran out of her inhaler day prior to admission, presenting with hypercapnic and hypoxic respiratory failure in setting of likely asthma exacerbation (unclear at this time if other illicit substance may have exacerbated) , resulting in cardiac arrest (per EMS initially asystole and then PEA), status post 4 rounds epi, bicarb, return of spontaneous circulation in approximately 30 minutes after CPR initiated. She is now intubated. We are going to get a CT of her head and initiate normothermia protocol given her GCS 3T and prolonged down time. Grave concern for irreversible hypoxic brain injury. Follow up rest of code labs. Add thyroid studies given recent history of low TSH. Repeat ABG to monitor improvement in her hypercapnic respiratory failure. Give magnesium, steroids, and inhalers. Continue telemetry. EKG with concern for Afib. Added magnesium level. She is a full code. Customer Service Assistant service will be taking over care this a.m, Dr. Nichols. We will normalize her ionized calcium. I will order her a fentanyl drip for sedation (though not needing at present time) titrate for RASS 0 to negative 2. Given suboxone found in her purse and recent psychiatric evaluation for making comments about wanting to "go home and ", will follow up urine drug screen ordered by ED. Narcan reportedly had no effect. Her medical surrogate is her mother Francie Hilton. [id number]/CPS #: [id number] ZENA
[2017-08-03] MEDS: busPIRone TAB* 30 MG PO SCH ×2 (11:39→21:52)
[2017-08-03] MEDS: cefTRIAXone(*) 1 GM in NS 0.9% 50 ML* 50 ML IVPB SCH (11:39)
[2017-08-03] MEDS ORDERED: fentaNYL PCA* 20 ML PCA SCH (12:00)
[2017-08-03] MEDS ORDERED: Pantoprazole IV* 40 MG IV SCH (12:00)
[2017-08-03 13:10] LABS: EGFR Non-African American 64.2 (>60)
[2017-08-03] MEDS: Midazolam* 1 MG/ML 2 ML VIAL (2 MG) IV PRN ×2 (13:22→15:26)
[2017-08-03] MEDS: Heparin VIAL(*) 5000 UNITS/ML VIAL (FIVE THOUSAND) SUBCUT SCH ×2 (13:22→21:55)
[2017-08-03] MEDS: Chlorhexidine MOUTHWASH 0.12%* 15 ML UDC TOPICAL SCH ×3 (13:22→21:53)
[2017-08-03] MEDS ORDERED: busPIRone TAB* 5 MG PO SCH (14:00)
[2017-08-03] MEDS: Artificial Tear OPHTH.OINT* 3.5 GM BOTH EYES PRN (15:26)
[2017-08-03 17:29] LABS: EGFR Non-African American 64.9 (>60)
[2017-08-03] MEDS: Insulin REGULAR IVPB 100 UNITS/100 ML UNIT IVPB SCH (17:52)
--- NOTE | 2017-08-03 17:59 | ED ---
Barbara Almeida Nilda, scribed for Flori Rodriguez MD on 08/03/17 at 0534 . Cardiac Resuscitation - HPI Summary HPI Summary: ABC alert 04:46 This patient is a 21 year old F BIBA accompanied by EMS and family with a chief complaint of cardiac arrest since 429. Mother states pt was c/o SOB and has Hx asthma. She states she called 911, when suddenly pt that was in respiratory distress, stopped gasping for air and became silent. EMS arrived and began CPR ( at 0443), administered Narcan (one 2mg) and Epi (3 doses), but pt did not respond to treatment and she was asystole. Mother states NKDA. Boyfriend states pt uses marijuana. Mother denies heroin or cocaine use. Pt intubated [employer]. - History of Current Complaint Stated Complaint: ABC Hx Obtained From: Patient, Family/Regional Clinical Director Hx From Patient Unobtainable Due To: Extremis - unresponsive Arrest Witnessed: Yes - Additional Pertinent History Primary Care Physician: [id number] - Allergies/Home Medications Allergies/Adverse Reactions: Allergies Allergy/AdvReac Type Severity Reaction Status Date / Time No Known Allergies Allergy Verified 08/03/17 05:41 - Past Medical History Past Medical History: Unobtainable Due to Extremis - Family History Family History: Unobtainable Due to Extremis - Social History Social History: Unobtainable Due to Extremis - Review of Systems Review of Systems: Unobtainable Due to Extremis Physical Examination - Summary Physical Exam Summary: GENERAL: Patient is a well developed and nourished F who is lying in the stretcher. HEAD AND FACE: Normocephalic EYES: Pupils fixed, dilated, unreactive NECK: Supple, trachea is midline, no adenopathy, no JVD, no carotid bruit. LUNGS: Breath sounds vented, intubated SKIN: Dry and warm NEURO: GCS is 3T. - Physical Examination Completion Of Physical Exam Limited Due To: Extremis Resuscitation: Successful - Glascow Coma Score Glascow Coma Scale Comments: GCS is 3T. Procedures - Intubation Intubation Method: orotracheal Tube Size (cm): 7.5 Intubation Complications: no complications Post Intubation Xray: Yes Diagnostics - Vital Signs Vital Signs Temp Pulse Resp BP Pulse Ox 08/03/17 05:06 35.9 C 0 12 81/67 100 - Laboratory Lab Results: Lab Results 08/03/17 08/03/17 08/03/17 Range/Units 05:24 05:24 05:24 WBC (3.5-10.8) 10^3/ul RBC (4.0-5.4) 10^6/ul Hgb (12.0-16.0) g/dl Hct (35-47) % MCV (80-97) fL MCH (27-31) pg MCHC (31-36) g/dl RDW (10.5-15) % Plt Count (150-450) 10^3/ul MPV (7.4-10.4) um3 INR (Anticoag Therapy) 1.02 (0.77-1.02) APTT 64.4 H (26.0-36.3) seconds Patient Temperature ABG pH (7.35-7.45) ABG pH (Temp Correct) ABG pCO2 (35-45) mmHg ABG pCO2 (Temp Corrct ABG pO2 (80-100) mmHg ABG pO2 (Temp Correct ABG HCO3 ABG O2 Saturation (95-98) % ABG Base Excess Respiration Rate O2 Delivery Device Ventilator Type Vent Mode FiO2 Inspiratory Time PEEP Pressure Support Pressure Control EPAP IPAP BiPAP Sodium 138 L (139-145) mmol/L Potassium 4.6 (3.5-5.0) mmol/L Chloride 98 L (101-111) mmol/L Carbon Dioxide 17 L (22-32) mmol/L Anion Gap 23 H (2-11) mmol/L BUN 11 (6-24) mg/dL Creatinine 1.18 H (0.51-0.95) mg/dL Est GFR ( Amer) 73.0 (>60) Est GFR (Non-Af Amer) 56.8 (>60) BUN/Creatinine Ratio 9.3 (8-20) Glucose 395 H (70-100) mg/dL Lactic Acid (0.5-2.0) mmol/L Calcium 8.7 (8.6-10.3) mg/dL Ionized Calcium 4.40 L (4.65-5.28) mg/dL Phosphorus 12.0 H (2.5-5.0) mg/dL Troponin I 0.01 (<0.04) ng/mL Beta HCG, Quant < 0.60 mIU/mL Blood Type Antibody Screen 08/03/17 08/03/17 08/03/17 Range/Units 05:24 05:24 05:24 WBC 13.0 H (3.5-10.8) 10^3/ul RBC 3.80 L (4.0-5.4) 10^6/ul Hgb 11.2 L (12.0-16.0) g/dl Hct 36 (35-47) % MCV 95 (80-97) fL MCH 29 (27-31) pg MCHC 31 (31-36) g/dl RDW 14 (10.5-15) % Plt Count 320 (150-450) 10^3/ul MPV 8.4 (7.4-10.4) um3 INR (Anticoag Therapy) (0.77-1.02) APTT (26.0-36.3) seconds Patient Temperature ABG pH (7.35-7.45) ABG pH (Temp Correct) ABG pCO2 (35-45) mmHg ABG pCO2 (Temp Corrct ABG pO2 (80-100) mmHg ABG pO2 (Temp Correct ABG HCO3 ABG O2 Saturation (95-98) % ABG Base Excess Respiration Rate O2 Delivery Device Ventilator Type Vent Mode FiO2 Inspiratory Time PEEP Pressure Support Pressure Control EPAP IPAP BiPAP Sodium (139-145) mmol/L Potassium (3.5-5.0) mmol/L Chloride (101-111) mmol/L Carbon Dioxide (22-32) mmol/L Anion Gap (2-11) mmol/L BUN (6-24) mg/dL Creatinine (0.51-0.95) mg/dL Est GFR ( Amer) (>60) Est GFR (Non-Af Amer) (>60) BUN/Creatinine Ratio (8-20) Glucose (70-100) mg/dL Lactic Acid 17.7 H* (0.5-2.0) mmol/L Calcium (8.6-10.3) mg/dL Ionized Calcium (4.65-5.28) mg/dL Phosphorus (2.5-5.0) mg/dL Troponin I (<0.04) ng/mL Beta HCG, Quant mIU/mL Blood Type O Positive Antibody Screen Negative 08/03/17 Range/Units 05:35 WBC (3.5-10.8) 10^3/ul RBC (4.0-5.4) 10^6/ul Hgb (12.0-16.0) g/dl Hct (35-47) % MCV (80-97) fL MCH (27-31) pg MCHC (31-36) g/dl RDW (10.5-15) % Plt Count (150-450) 10^3/ul MPV (7.4-10.4) um3 INR (Anticoag Therapy) (0.77-1.02) APTT (26.0-36.3) seconds Patient Temperature Not Reportable ABG pH < 7.00 L* (7.35-7.45) ABG pH (Temp Correct) Not Reportable ABG pCO2 96 H* (35-45) mmHg ABG pCO2 (Temp Corrct Not Reportable ABG pO2 437 H (80-100) mmHg ABG pO2 (Temp Correct Not Reportable ABG HCO3 TNP ABG O2 Saturation 101.0 H (95-98) % ABG Base Excess TNP Respiration Rate Not Reportable O2 Delivery Device ambu Ventilator Type Not Reportable Vent Mode Not Reportable FiO2 100 Inspiratory Time Not Reportable PEEP Not Reportable Pressure Support Not Reportable Pressure Control Not Reportable EPAP Not Reportable IPAP Not Reportable BiPAP Not Reportable Sodium (139-145) mmol/L Potassium (3.5-5.0) mmol/L Chloride (101-111) mmol/L Carbon Dioxide (22-32) mmol/L Anion Gap (2-11) mmol/L BUN (6-24) mg/dL Creatinine (0.51-0.95) mg/dL Est GFR ( Amer) (>60) Est GFR (Non-Af Amer) (>60) BUN/Creatinine Ratio (8-20) Glucose (70-100) mg/dL Lactic Acid (0.5-2.0) mmol/L Calcium (8.6-10.3) mg/dL Ionized Calcium (4.65-5.28) mg/dL Phosphorus (2.5-5.0) mg/dL Troponin I (<0.04) ng/mL Beta HCG, Quant mIU/mL Blood Type Antibody Screen Result Diagrams: 08/03/17 05:24 08/03/17 17:00 Lab Statement: Any lab studies that have been ordered have been reviewed, and results considered in the medical decision making process. Cardiac Resus. Course/Dx - Course Course Of Treatment: ABC alert 0446. Upon arrival CRP continued and 1 dose of epi and 1 amp of bicarb given with ROSC. Patient came in intubated with 6.5 ET tube which was replaced with a 7.5 tube since patient was difficult to bag. Additional, patient was given steroids and breathing treatment. Patient was then admitted to the MICU. Case discussed with the hospitalist Dr. Alfaro. Patient stable upon tranfer to MICU - Cardiac Resuscitation Differential Dx/HPI/PQRI: Pulseless Electrical Activity, Respiratory Failure - Diagnoses Provider Diagnoses: PEA (Pulseless electrical activity) During the Visit The Following Alert/Code Occurred: ABC Alert Is Visit Related: No - Provider Notifications Instructed by Provider To: Admit As Inpatient Admit/Transition Orders Completed By ED Provider: Yes - Critical Care Time Critical Care Time: 30-74 min Discharge - Sign-Out/Discharge Documenting (check all that apply): Discharge - admit - Discharge Plan Condition: Critical Disposition: ADMITTED TO [facility] - Billing Disposition and Condition Condition: CRITICAL Disposition: [facility] [place] The documentation as recorded by the Barbara parham Nilda accurately reflects the service I personally performed and the decisions made by , Flori Rodriguez MD.
[2017-08-03] MEDS: methylPREDNISolone SOD 40 MG* 1 ML VIAL IV SCH (19:46)
[2017-08-03 21:21] LABS: EGFR Non-African American 81.8 (>60)
--- NOTE | 2017-08-03 21:43 | RAD ---
Indication: Immobility. Duplex Doppler sonography of the deep venous system of both lower extremities was performed. Bilaterally the femoral veins, popliteal veins, posterior tibial veins and peroneal veins appear patent and compressible. There is slight echogenic material in the right common femoral vein at the saphenofemoral junction which may represent nonocclusive thrombus. The left common femoral vein, greater saphenous vein and proximal deep femoral vein are not accessible due to overlying bandage and central lines. IMPRESSION: Echogenic material in the junction between the right common femoral vein and proximal greater saphenous vein likely representing a small thrombus. The left common femoral vein, proximal greater saphenous vein and proximal deep femoral vein are not evaluated.
[2017-08-03] MEDS ORDERED: Norepinephrine 16MCG/ML IVPRE* 4,000 MCG/250 ML BAG IV SCH (23:00)
[2017-08-03] MEDS ORDERED: Norepinephrine 16MCG/ML IVPRE* 4,000 MCG/250 ML BAG IV ONE (23:26)
[2017-08-04] MEDS: Albuterol 2.5 MG/3 ML NEB.SOL* (0.083%) INH SCH ×3 (00:26→09:39)
[2017-08-04 01:01] LABS: EGFR Non-African American 100.4 (>60)
[2017-08-04] MEDS: Chlorhexidine MOUTHWASH 0.12%* 15 ML UDC TOPICAL SCH ×6 (02:03→20:15)
[2017-08-04] MEDS: Propofol* 100 ML IV SCH ×4 (02:03→20:47)
[2017-08-04] MEDS: busPIRone TAB* 30 MG PO SCH ×3 (04:03→19:51)
[2017-08-04] MEDS: methylPREDNISolone SOD 40 MG* 1 ML VIAL IV SCH ×3 (04:15→19:51)
[2017-08-04 05:33] LABS: Hematocrit 39 % (35-47); Hemoglobin 12.8 g/dl (12.0-16.0); Mean Corpuscular HGB Conc 33 g/dl (31-36); Mean Corpuscular Hemoglobin 29 pg (27-31); Mean Corpuscular Volume 88 fL (80-97); Mean Platelet Volume 7.9 um3 (7.4-10.4); Platelet Count 232 10^3/ul (150-450); Red Cell Distribution Width 14 % (10.5-15)
[2017-08-04] MEDS: Diltiazem DRIP* 100 MG/100 ML ADDV.BAG IVPB SCH (05:49)
[2017-08-04 06:28] LABS: ABS Basophils 0 10^3/ul (0-0.2); ABS Eosinophils 0 10^3/ul (0-0.6); ABS Lymphocytes 0.8 10^3/ul (1.0-4.8); ABS Monocytes 0.6 10^3/ul (0-0.8); ABS Neutrophils 25.6 10^3/ul (1.5-7.7); ABS Nucleated RBC 0 10^3/ul; Eosinophil % 0.1 % (0-6); Nucleated Red Blood Cells % 0
[2017-08-04] MEDS: Heparin VIAL(*) 5000 UNITS/ML VIAL (FIVE THOUSAND) SUBCUT SCH ×3 (06:42→23:06)
[2017-08-04] MEDS: Pantoprazole IV* 80 MG in NS 0.9% 250 ML* 250 ML IVPB SCH ×2 (08:17→15:28)
[2017-08-04] MEDS: Norepinephrine 16MCG/ML IVPRE* 4,000 MCG/250 ML BAG IV SCH ×3 (08:22→23:33)
--- NOTE | 2017-08-04 09:22 | PN ---
Progress Note - Progress Note Date of Service: 08/04/17 Note: Progress Note - Critical Care 24 hour events: -admitted to ICU yesterday as out of hospital respiratory cardiac arrest, downtime ~30min -remains on hypothermia protocol, targeted 35C -urine output has increased significantly overnight, upto even 300cc/hr -became hypotensive, give fluid boluses -started on levophed, on 12mcg/min now -noted more dark ngt material coming out, may be coffee ground appearing -taken off cardizem drip this morning -remains on propofol, with versed prn, last dose 3pm yesterday -started on PPI infusion Tele: sinus tachy Vitals: Vital Signs Temp 94.1 F 08/04/17 09:01 Pulse 101 08/04/17 09:01 Resp 18 08/04/17 09:00 BP 112/57 08/04/17 09:00 Pulse Ox 100 08/04/17 09:01 Intake & Output 08/03/17 08/04/17 08/04/17 18:59 06:59 18:59 Intake Total 1753.7 3880.9 Output Total 375 2730 1835 Balance 1378.7 1150.9 -1835 Weight 128 lb 128 lb 8.472 oz Intake: IV Fluids 1440 3346.5 ABX - CEFTRIAXONE 150 LR 790 3270 NS (0.9%) 500 76.5 IVPB 110 ABX - CEFTRIAXONE 60 LR 50 Medicated IV 103.7 534.4 CC - Insulin 25.7 CC - Norepinephrine/ 162 Levophed CC - Propofol/Diprivan 75 262 GEN - Diltiazem/Cardizem 28.7 62.7 GEN - Pantoprazole/ 22 Protonix Tube Feeding Flush Amount 100 Output: NG Tube Drainage Amount 300 G Tube 300 Nick 375 2730 1235 O2/Vent: AC 18/450/+5/40%; better exp flows now, no dysynchrony on vent noted Infusions: d5w 125cc/hour, Protonix 8mg/hr, propofol, levophed 12, Current Medications: Albuterol (Ventolin 2.5 Mg/3 Ml Neb.Teresa*) 2.5 mg INH Q4H RANJANA Last Admin: 08/04/17 04:25 Dose: 2.5 mg Artificial Tears (Lacrilube Oint*) 1 applic BOTH EYES Q4H PRN PRN Reason: DRY EYE Last Admin: 08/03/17 15:26 Dose: 1 applic Buspirone HCl (Buspar Tab*) 30 mg PO Q8H [facility] Last Admin: 08/04/17 04:03 Dose: 30 mg Chlorhexidine Gluconate (Peridex Mouth Wash 0.12%*) 15 ml TOPICAL Q4H [facility] Last Admin: 08/04/17 08:27 Dose: 15 ml Dextrose (D50w Syringe 50 Ml*) 25 gm IV PUSH .FOR FS < 60 - SS PRN PRN Reason: FS < 60 Fentanyl Citrate (Fentanyl*) 50 mcg IV SLOW PU Q4H PRN PRN Reason: shivering Last Admin: 08/03/17 09:26 Dose: 50 mcg Heparin Sodium (Porcine) (Heparin Vial(*)) 5,000 units SUBCUT Q8HR [facility] Last Admin: 08/04/17 06:42 Dose: 5,000 units Propofol (Diprivan*) 100 mls @ 7.272 mls/hr IV .(Initial Rate) RANJANA; 20 MCG/KG/ MIN PRN Reason: Protocol Last Admin: 08/04/17 08:17 Dose: 14.5 mls/hr Ceftriaxone Sodium 1 gm/ (Sodium Chloride) 50 mls @ 200 mls/hr IVPB Q24H [facility] Last Admin: 08/03/17 11:39 Dose: 200 mls/hr Insulin Human Regular (Insulin Regular Ivpb) 100 units in 100 mls @ 3 mls/hr IVPB Q24H [facility] PRN Reason: 3 UNITS/HR Last Admin: 08/03/17 17:52 Dose: 3 mls/hr Pantoprazole Sodium 80 mg/ (Sodium Chloride) 250 mls @ 25 mls/hr IVPB Q10H [facility] PRN Reason: Protocol Last Admin: 08/04/17 08:17 Dose: 25 mls/hr Norepinephrine Bitartrate (Levophed 16 Mcg/Ml Premix Bag*) 4,000 mcg in 250 mls @ 45 mls/hr IV Q5H [facility]JA[facility] PRN Reason: Protocol Last Admin: 08/04/17 08:22 Dose: 45 mls/hr Sodium Chloride (Ns 0.45% 1000 Ml Bag*) 1,000 mls @ 0 mls/hr IV WIDE OPEN RANJANA PRN Reason: Wide Open Last Admin: 08/04/17 09:29 Dose: 1,000 mls/hr Dextrose (D5w 1000 Ml Bag*) 1,000 mls @ 125 mls/hr IV PER RATE [facility]JA[facility] Meperidine HCl (Demerol Syringe*) 25 mg IV Q4H PRN PRN Reason: shivering Last Admin: 08/03/17 09:47 Dose: 25 mg Methylprednisolone Sodium Succinate (Solu-Medrol 40 Mg) 40 mg IV Q8H [facility] Last Admin: 08/04/17 04:15 Dose: 40 mg Metoprolol Tartrate (Lopressor Iv*) 5 mg IV Q10M PRN PRN Reason: TACHYCARDIA Last Admin: 08/03/17 07:21 Dose: 5 mg Midazolam HCl (Versed 2mg/2ml*) 2 mg IV Q2H PRN PRN Reason: for vent synchrony Last Admin: 08/03/17 15:26 Dose: 2 mg Physical Exam: General: intubated, unresponsive Head: normocephalic, atraumatic HEENT: no pallor, no icterus, moist mucous membranes Neck: soft, supple, no jvd CVS: tachycardic, regular, no murmur Resp: bilateral air entry, no rhales, no wheezing noted, no rhonchi, no acc muscle use Abdomen: soft, nondistended, bs+ Ext: pulses+, cold, no edema Skin: intact Neuro: intubated, on propofol infusion, unrepsonsive; bilateral dilated pupils, no gag Labs: Laboratory Results - last 24 hr 08/03/17 08/03/17 08/03/17 05:24 14:45 16:15 WBC RBC Hgb Hct MCV MCH MCHC RDW Plt Count MPV Neut % (Auto) Lymph % (Auto) [place] % (Auto) Eos % (Auto) Baso % (Auto) Absolute Neuts (auto) Absolute Lymphs (auto) Absolute Monos (auto) Absolute Eos (auto) Absolute Basos (auto) Absolute Nucleated RBC Nucleated RBC % Patient Temperature ABG pH 7.22 L ABG pH (Temp Correct) ABG pCO2 40 ABG pCO2 (Temp Corrct ABG pO2 155 H ABG pO2 (Temp Correct ABG HCO3 16.6 L ABG O2 Saturation 99.5 H ABG Base Excess -10.7 L VBG pH VBG pCO2 VBG pO2 VBG HCO3 VBG O2 Saturation VBG Base Excess Respiration Rate O2 Delivery Device Ventilator Type Vent Mode FiO2 Inspiratory Time PEEP Pressure Support Pressure Control EPAP IPAP BiPAP Sodium Potassium Chloride Carbon Dioxide Anion Gap BUN Creatinine Est GFR ( Amer) Est GFR (Non-Af Amer) BUN/Creatinine Ratio Glucose POC Glucose (mg/dL) POC Glucose Confirm Hemoglobin A1c 5.2 Serum Osmolality Lactic Acid 5.1 H* Calcium Ionized Calcium Magnesium Total Bilirubin Direct Bilirubin Indirect Bilirubin AST ALT Alkaline Phosphatase Total Protein Albumin Globulin Albumin/Globulin Ratio Ur Specific [place] Ur Random Creatinine Ur Random Sodium Ur Random Chloride Ur Random Urea Nitrogn 08/03/17 08/03/17 08/03/17 17:00 19:07 20:10 WBC RBC Hgb Hct MCV MCH MCHC RDW Plt Count MPV Neut % (Auto) Lymph % (Auto) [place] % (Auto) Eos % (Auto) Baso % (Auto) Absolute Neuts (auto) Absolute Lymphs (auto) Absolute Monos (auto) Absolute Eos (auto) Absolute Basos (auto) Absolute Nucleated RBC Nucleated RBC % Patient Temperature ABG pH ABG pH (Temp Correct) ABG pCO2 ABG pCO2 (Temp Corrct ABG pO2 ABG pO2 (Temp Correct ABG HCO3 ABG O2 Saturation ABG Base Excess VBG pH VBG pCO2 VBG pO2 VBG HCO3 VBG O2 Saturation VBG Base Excess Respiration Rate O2 Delivery Device Ventilator Type Vent Mode FiO2 Inspiratory Time PEEP Pressure Support Pressure Control EPAP IPAP BiPAP Sodium 139 Potassium 3.9 Chloride 108 Carbon Dioxide 19 L Anion Gap 12 H BUN 19 Creatinine 1.05 H Est GFR ( Amer) 83.5 Est GFR (Non-Af Amer) 64.9 BUN/Creatinine Ratio 18.1 Glucose 272 H POC Glucose (mg/dL) 243 H 219 H POC Glucose Confirm 272 H Hemoglobin A1c Serum Osmolality Lactic Acid Calcium 7.9 L Ionized Calcium Magnesium Total Bilirubin Direct Bilirubin Indirect Bilirubin AST ALT Alkaline Phosphatase Total Protein Albumin Globulin Albumin/Globulin Ratio Ur Specific [place] Ur Random Creatinine Ur Random Sodium Ur Random Chloride Ur Random Urea Nitrogn 08/03/17 08/03/17 08/03/17 20:36 20:44 22:13 WBC RBC Hgb Hct MCV MCH MCHC RDW Plt Count MPV Neut % (Auto) Lymph % (Auto) [place] % (Auto) Eos % (Auto) Baso % (Auto) Absolute Neuts (auto) Absolute Lymphs (auto) Absolute Monos (auto) Absolute Eos (auto) Absolute Basos (auto) Absolute Nucleated RBC Nucleated RBC % Patient Temperature ABG pH ABG pH (Temp Correct) ABG pCO2 ABG pCO2 (Temp Corrct ABG pO2 ABG pO2 (Temp Correct ABG HCO3 ABG O2 Saturation ABG Base Excess VBG pH VBG pCO2 VBG pO2 VBG HCO3 VBG O2 Saturation VBG Base Excess Respiration Rate O2 Delivery Device Ventilator Type Vent Mode FiO2 Inspiratory Time PEEP Pressure Support Pressure Control EPAP IPAP BiPAP Sodium 140 Potassium 4.1 Chloride 112 H Carbon Dioxide 20 L Anion Gap 8 BUN 19 Creatinine 0.86 Est GFR ( Amer) 105.2 Est GFR (Non-Af Amer) 81.8 BUN/Creatinine Ratio 22.1 H Glucose 185 H POC Glucose (mg/dL) 198 H 143 H POC Glucose Confirm Hemoglobin A1c Serum Osmolality Lactic Acid Calcium 7.9 L Ionized Calcium Magnesium Total Bilirubin Direct Bilirubin Indirect Bilirubin AST ALT Alkaline Phosphatase Total Protein Albumin Globulin Albumin/Globulin Ratio Ur Specific [place] Ur Random Creatinine Ur Random Sodium Ur Random Chloride Ur Random Urea Nitrogn 08/03/17 08/04/17 08/04/17 23:02 00:12 00:12 WBC RBC Hgb Hct MCV MCH MCHC RDW Plt Count MPV Neut % (Auto) Lymph % (Auto) [place] % (Auto) Eos % (Auto) Baso % (Auto) Absolute Neuts (auto) Absolute Lymphs (auto) Absolute Monos (auto) Absolute Eos (auto) Absolute Basos (auto) Absolute Nucleated RBC Nucleated RBC % Patient Temperature ABG pH ABG pH (Temp Correct) ABG pCO2 ABG pCO2 (Temp Corrct ABG pO2 ABG pO2 (Temp Correct ABG HCO3 ABG O2 Saturation ABG Base Excess VBG pH VBG pCO2 VBG pO2 VBG HCO3 VBG O2 Saturation VBG Base Excess Respiration Rate O2 Delivery Device Ventilator Type Vent Mode FiO2 Inspiratory Time PEEP Pressure Support Pressure Control EPAP IPAP BiPAP Sodium 141 Potassium 4.1 Chloride 112 H Carbon Dioxide 21 L Anion Gap 8 BUN 17 Creatinine 0.72 Est GFR ( Amer) 129.1 Est GFR (Non-Af Amer) 100.4 BUN/Creatinine Ratio 23.6 H Glucose 125 H POC Glucose (mg/dL) 182 H POC Glucose Confirm Hemoglobin A1c Serum Osmolality Lactic Acid 2.0 Calcium 7.6 L Ionized Calcium Magnesium Total Bilirubin Direct Bilirubin Indirect Bilirubin AST ALT Alkaline Phosphatase Total Protein Albumin Globulin Albumin/Globulin Ratio Ur Specific [place] Ur Random Creatinine Ur Random Sodium Ur Random Chloride Ur Random Urea Nitrogn 08/04/17 08/04/17 08/04/17 00:27 00:40 01:24 WBC RBC Hgb Hct MCV MCH MCHC RDW Plt Count MPV Neut % (Auto) Lymph % (Auto) [place] % (Auto) Eos % (Auto) Baso % (Auto) Absolute Neuts (auto) Absolute Lymphs (auto) Absolute Monos (auto) Absolute Eos (auto) Absolute Basos (auto) Absolute Nucleated RBC Nucleated RBC % Patient Temperature Not Reportable ABG pH ABG pH (Temp Correct) 7.21 L ABG pCO2 ABG pCO2 (Temp Corrct 50 H ABG pO2 ABG pO2 (Temp Correct 82 ABG HCO3 18.9 L ABG O2 Saturation 98.5 H ABG Base Excess -7.7 L VBG pH VBG pCO2 VBG pO2 VBG HCO3 VBG O2 Saturation VBG Base Excess Respiration Rate Not Reportable O2 Delivery Device Not Reportable Ventilator Type Not Reportable Vent Mode Not Reportable FiO2 Not Reportable Inspiratory Time Not Reportable PEEP Not Reportable Pressure Support Not Reportable Pressure Control Not Reportable EPAP Not Reportable IPAP Not Reportable BiPAP Not Reportable Sodium Potassium Chloride Carbon Dioxide Anion Gap BUN Creatinine Est GFR ( Amer) Est GFR (Non-Af Amer) BUN/Creatinine Ratio Glucose POC Glucose (mg/dL) 145 H 151 H POC Glucose Confirm Hemoglobin A1c Serum Osmolality Lactic Acid Calcium Ionized Calcium Magnesium Total Bilirubin Direct Bilirubin Indirect Bilirubin AST ALT Alkaline Phosphatase Total Protein Albumin Globulin Albumin/Globulin Ratio Ur Specific [place] Ur Random Creatinine Ur Random Sodium Ur Random Chloride Ur Random Urea Nitrogn 08/04/17 08/04/17 08/04/17 02:13 03:21 04:21 WBC RBC Hgb Hct MCV MCH MCHC RDW Plt Count MPV Neut % (Auto) Lymph % (Auto) [place] % (Auto) Eos % (Auto) Baso % (Auto) Absolute Neuts (auto) Absolute Lymphs (auto) Absolute Monos (auto) Absolute Eos (auto) Absolute Basos (auto) Absolute Nucleated RBC Nucleated RBC % Patient Temperature ABG pH ABG pH (Temp Correct) ABG pCO2 ABG pCO2 (Temp Corrct ABG pO2 ABG pO2 (Temp Correct ABG HCO3 ABG O2 Saturation ABG Base Excess VBG pH VBG pCO2 VBG pO2 VBG HCO3 VBG O2 Saturation VBG Base Excess Respiration Rate O2 Delivery Device Ventilator Type Vent Mode FiO2 Inspiratory Time PEEP Pressure Support Pressure Control EPAP IPAP BiPAP Sodium Potassium Chloride Carbon Dioxide Anion Gap BUN Creatinine Est GFR ( Amer) Est GFR (Non-Af Amer) BUN/Creatinine Ratio Glucose POC Glucose (mg/dL) 164 H 164 H 174 H POC Glucose Confirm Hemoglobin A1c Serum Osmolality Lactic Acid Calcium Ionized Calcium Magnesium Total Bilirubin Direct Bilirubin Indirect Bilirubin AST ALT Alkaline Phosphatase Total Protein Albumin Globulin Albumin/Globulin Ratio Ur Specific [place] Ur Random Creatinine Ur Random Sodium Ur Random Chloride Ur Random Urea Nitrogn 08/04/17 08/04/17 08/04/17 04:45 04:45 04:45 WBC 27.0 H RBC 4.40 Hgb 12.8 Hct 39 MCV 88 MCH 29 MCHC 33 RDW 14 Plt Count 232 MPV 7.9 Neut % (Auto) 94.7 H Lymph % (Auto) 3.0 L [place] % (Auto) 2.2 Eos % (Auto) 0.1 Baso % (Auto) 0 Absolute Neuts (auto) 25.6 H Absolute Lymphs (auto) 0.8 L Absolute Monos (auto) 0.6 Absolute Eos (auto) 0 Absolute Basos (auto) 0 Absolute Nucleated RBC 0 Nucleated RBC % 0 Patient Temperature ABG pH ABG pH (Temp Correct) ABG pCO2 ABG pCO2 (Temp Corrct ABG pO2 ABG pO2 (Temp Correct ABG HCO3 ABG O2 Saturation ABG Base Excess VBG pH VBG pCO2 VBG pO2 VBG HCO3 VBG O2 Saturation VBG Base Excess Respiration Rate O2 Delivery Device Ventilator Type Vent Mode FiO2 Inspiratory Time PEEP Pressure Support Pressure Control EPAP IPAP BiPAP Sodium 148 H Potassium 4.0 Chloride 120 H Carbon Dioxide 22 Anion Gap 6 BUN 16 Creatinine 0.71 Est GFR ( Amer) 131.2 Est GFR (Non-Af Amer) 102.0 BUN/Creatinine Ratio 22.5 H Glucose 161 H POC Glucose (mg/dL) POC Glucose Confirm Hemoglobin A1c Serum Osmolality Lactic Acid Calcium 8.5 L Ionized Calcium 4.57 L Magnesium 2.1 Total Bilirubin 0.30 Direct Bilirubin 0.10 Indirect Bilirubin 0.2 L AST 741 H ALT 215 H Alkaline Phosphatase 69 Total Protein 5.5 L Albumin 3.4 Globulin 2.1 Albumin/Globulin Ratio 1.6 Ur Specific [place] Ur Random Creatinine Ur Random Sodium Ur Random Chloride Ur Random Urea Nitrogn 08/04/17 08/04/17 08/04/17 04:45 05:04 06:15 WBC RBC Hgb Hct MCV MCH MCHC RDW Plt Count MPV Neut % (Auto) Lymph % (Auto) [place] % (Auto) Eos % (Auto) Baso % (Auto) Absolute Neuts (auto) Absolute Lymphs (auto) Absolute Monos (auto) Absolute Eos (auto) Absolute Basos (auto) Absolute Nucleated RBC Nucleated RBC % Patient Temperature ABG pH ABG pH (Temp Correct) ABG pCO2 ABG pCO2 (Temp Corrct ABG pO2 ABG pO2 (Temp Correct ABG HCO3 ABG O2 Saturation ABG Base Excess VBG pH VBG pCO2 VBG pO2 VBG HCO3 VBG O2 Saturation VBG Base Excess Respiration Rate O2 Delivery Device Ventilator Type Vent Mode FiO2 Inspiratory Time PEEP Pressure Support Pressure Control EPAP IPAP BiPAP Sodium Potassium Chloride Carbon Dioxide Anion Gap BUN Creatinine Est GFR ( Amer) Est GFR (Non-Af Amer) BUN/Creatinine Ratio Glucose POC Glucose (mg/dL) 184 H 168 H POC Glucose Confirm Hemoglobin A1c Serum Osmolality 289 Lactic Acid Calcium Ionized Calcium Magnesium Total Bilirubin Direct Bilirubin Indirect Bilirubin AST ALT Alkaline Phosphatase Total Protein Albumin Globulin Albumin/Globulin Ratio Ur Specific [place] Ur Random Creatinine Ur Random Sodium Ur Random Chloride Ur Random Urea Nitrogn 08/04/17 08/04/17 08/04/17 06:24 07:11 08:10 WBC RBC Hgb Hct MCV MCH MCHC RDW Plt Count MPV Neut % (Auto) Lymph % (Auto) [place] % (Auto) Eos % (Auto) Baso % (Auto) Absolute Neuts (auto) Absolute Lymphs (auto) Absolute Monos (auto) Absolute Eos (auto) Absolute Basos (auto) Absolute Nucleated RBC Nucleated RBC % Patient Temperature Not Reportable ABG pH Not Reportable ABG pH (Temp Correct) 7.29 L ABG pCO2 Not Reportable ABG pCO2 (Temp Corrct 46 H ABG pO2 Not Reportable ABG pO2 (Temp Correct 98 ABG HCO3 21.4 ABG O2 Saturation 99.2 H ABG Base Excess -4.5 L VBG pH VBG pCO2 VBG pO2 VBG HCO3 VBG O2 Saturation VBG Base Excess Respiration Rate 18 O2 Delivery Device vent Ventilator Type 450 Vent Mode Not Reportable FiO2 40 Inspiratory Time 0.8 PEEP 5 Pressure Support Not Reportable Pressure Control Not Reportable EPAP Not Reportable IPAP Not Reportable BiPAP Not Reportable Sodium Potassium Chloride Carbon Dioxide Anion Gap BUN Creatinine Est GFR ( Amer) Est GFR (Non-Af Amer) BUN/Creatinine Ratio Glucose POC Glucose (mg/dL) 158 H 150 H POC Glucose Confirm Hemoglobin A1c Serum Osmolality Lactic Acid Calcium Ionized Calcium Magnesium Total Bilirubin Direct Bilirubin Indirect Bilirubin AST ALT Alkaline Phosphatase Total Protein Albumin Globulin Albumin/Globulin Ratio Ur Specific [place] Ur Random Creatinine Ur Random Sodium Ur Random Chloride Ur Random Urea Nitrogn 08/04/17 08/04/17 08/04/17 09:00 09:00 09:00 WBC RBC Hgb Hct MCV MCH MCHC RDW Plt Count MPV Neut % (Auto) Lymph % (Auto) [place] % (Auto) Eos % (Auto) Baso % (Auto) Absolute Neuts (auto) Absolute Lymphs (auto) Absolute Monos (auto) Absolute Eos (auto) Absolute Basos (auto) Absolute Nucleated RBC Nucleated RBC % Patient Temperature ABG pH ABG pH (Temp Correct) ABG pCO2 ABG pCO2 (Temp Corrct ABG pO2 ABG pO2 (Temp Correct ABG HCO3 ABG O2 Saturation ABG Base Excess VBG pH 7.32 L VBG pCO2 48 VBG pO2 98 H VBG HCO3 23.6 L VBG O2 Saturation 98.8 H VBG Base Excess -1.7 L Respiration Rate O2 Delivery Device Ventilator Type Vent Mode FiO2 Inspiratory Time PEEP Pressure Support Pressure Control EPAP IPAP BiPAP Sodium Potassium Chloride Carbon Dioxide Anion Gap BUN Creatinine Est GFR ( Amer) Est GFR (Non-Af Amer) BUN/Creatinine Ratio Glucose POC Glucose (mg/dL) POC Glucose Confirm Hemoglobin A1c Serum Osmolality Lactic Acid Calcium Ionized Calcium Magnesium Total Bilirubin Direct Bilirubin Indirect Bilirubin AST ALT Alkaline Phosphatase Total Protein Albumin Globulin Albumin/Globulin Ratio Ur Specific [place] 1.001 L Ur Random Creatinine 7.16 Ur Random Sodium < 18 Ur Random Chloride < 22 Ur Random Urea Nitrogn 83 08/04/17 08/04/17 08/04/17 09:09 10:16 11:06 WBC RBC Hgb Hct MCV MCH MCHC RDW Plt Count MPV Neut % (Auto) Lymph % (Auto) [place] % (Auto) Eos % (Auto) Baso % (Auto) Absolute Neuts (auto) Absolute Lymphs (auto) Absolute Monos (auto) Absolute Eos (auto) Absolute Basos (auto) Absolute Nucleated RBC Nucleated RBC % Patient Temperature ABG pH ABG pH (Temp Correct) ABG pCO2 ABG pCO2 (Temp Corrct ABG pO2 ABG pO2 (Temp Correct ABG HCO3 ABG O2 Saturation ABG Base Excess VBG pH VBG pCO2 VBG pO2 VBG HCO3 VBG O2 Saturation VBG Base Excess Respiration Rate O2 Delivery Device Ventilator Type Vent Mode FiO2 Inspiratory Time PEEP Pressure Support Pressure Control EPAP IPAP BiPAP Sodium Potassium Chloride Carbon Dioxide Anion Gap BUN Creatinine Est GFR ( Amer) Est GFR (Non-Af Amer) BUN/Creatinine Ratio Glucose POC Glucose (mg/dL) 138 H 145 H 160 H POC Glucose Confirm Hemoglobin A1c Serum Osmolality Lactic Acid Calcium Ionized Calcium Magnesium Total Bilirubin Direct Bilirubin Indirect Bilirubin AST ALT Alkaline Phosphatase Total Protein Albumin Globulin Albumin/Globulin Ratio Ur Specific [place] Ur Random Creatinine Ur Random Sodium Ur Random Chloride Ur Random Urea Nitrogn 08/04/17 08/04/17 08/04/17 12:03 13:00 13:00 WBC RBC Hgb Hct MCV MCH MCHC RDW Plt Count MPV Neut % (Auto) Lymph % (Auto) [place] % (Auto) Eos % (Auto) Baso % (Auto) Absolute Neuts (auto) Absolute Lymphs (auto) Absolute Monos (auto) Absolute Eos (auto) Absolute Basos (auto) Absolute Nucleated RBC Nucleated RBC % Patient Temperature ABG pH ABG pH (Temp Correct) ABG pCO2 ABG pCO2 (Temp Corrct ABG pO2 ABG pO2 (Temp Correct ABG HCO3 ABG O2 Saturation ABG Base Excess VBG pH VBG pCO2 VBG pO2 VBG HCO3 VBG O2 Saturation VBG Base Excess Respiration Rate O2 Delivery Device Ventilator Type Vent Mode FiO2 Inspiratory Time PEEP Pressure Support Pressure Control EPAP IPAP BiPAP Sodium 158 H* D Potassium 3.2 L Chloride 131 H Carbon Dioxide 24 Anion Gap 3 BUN 14 Creatinine 0.72 Est GFR ( Amer) 129.1 Est GFR (Non-Af Amer) 100.4 BUN/Creatinine Ratio 19.4 Glucose 176 H POC Glucose (mg/dL) 118 H POC Glucose Confirm Hemoglobin A1c Serum Osmolality Lactic Acid 0.9 Calcium 9.1 Ionized Calcium Magnesium Total Bilirubin Direct Bilirubin Indirect Bilirubin AST ALT Alkaline Phosphatase Total Protein Albumin Globulin Albumin/Globulin Ratio Ur Specific [place] Ur Random Creatinine Ur Random Sodium Ur Random Chloride Ur Random Urea Nitrogn 08/04/17 13:09 WBC RBC Hgb Hct MCV MCH MCHC RDW Plt Count MPV Neut % (Auto) Lymph % (Auto) [place] % (Auto) Eos % (Auto) Baso % (Auto) Absolute Neuts (auto) Absolute Lymphs (auto) Absolute Monos (auto) Absolute Eos (auto) Absolute Basos (auto) Absolute Nucleated RBC Nucleated RBC % Patient Temperature ABG pH ABG pH (Temp Correct) ABG pCO2 ABG pCO2 (Temp Corrct ABG pO2 ABG pO2 (Temp Correct ABG HCO3 ABG O2 Saturation ABG Base Excess VBG pH VBG pCO2 VBG pO2 VBG HCO3 VBG O2 Saturation VBG Base Excess Respiration Rate O2 Delivery Device Ventilator Type Vent Mode FiO2 Inspiratory Time PEEP Pressure Support Pressure Control EPAP IPAP BiPAP Sodium Potassium Chloride Carbon Dioxide Anion Gap BUN Creatinine Est GFR ( Amer) Est GFR (Non-Af Amer) BUN/Creatinine Ratio Glucose POC Glucose (mg/dL) 190 H POC Glucose Confirm Hemoglobin A1c Serum Osmolality Lactic Acid Calcium Ionized Calcium Magnesium Total Bilirubin Direct Bilirubin Indirect Bilirubin AST ALT Alkaline Phosphatase Total Protein Albumin Globulin Albumin/Globulin Ratio Ur Specific [place] Ur Random Creatinine Ur Random Sodium Ur Random Chloride Ur Random Urea Nitrogn Imaging: CT brain 08/03 - reviewed; poor méndez-white differentiation CXR 08/03 - ett above martine, no ptx or effusion/infiltrate cxr 08/04 - ett above martine, bilateral no infiltrates, no ptx/effusion RLE Duplex 08/04 - small thrombus like mass at ANTHROPOMETRIST and Greater saph jxn Assessment: 21y F pmhx of asthma (diag summer 2016); Comes in for increasing shortness of breath for days, progressively worse the night before. Respiratory arrest on route to hospital, EMS called, CPR started, ROSC after 30min in ER. Hypercapneic on arrival. 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 remains on hypothermia protocol, warming restarted. Seems warming difficult, patient remains hypothermic, adding bernadine hugger to help with warming. On propofol for sedation. Meperidine/buspar for shivering. Versed PRN, last done yesterday. DIlated pupils. Once warming redone, will evaluate for repeat CT brain and sedation weaning. CT brain findings 08/03 noted above. 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 may already have some central hypothalmic temperature regulation abnormality as well as central DI? Will minimize longer acting sedatives and discontinue some after rewarmed. Neurology consult called. CVS- s/p PEA arrest. Became hypotensive, suspect degree of volume depletion from large diuresis. No bettie issues. D/C cardizem. On Levophed. Noted large diuresis and hypernatremia now, change fluid to d5w. On levophed, suspect more volume depletion, actively rescucitating. Started vasopressin for pressor and ADH replacement. ECHO today to eval LV function. Afib converted, remains in NSR , mild tachycardia. LA normalized. Resp- Intubated. CO2 improved. No further wheezing noted. Cont solumedrol, start tapering. Bronchodilators q4h prn, with standing. Increase RR to 22 to offset CO2 in setting of improving metabolic acidosis. CXR without new infiltrates. Sputum cultures if any. ID- Hypothermic, WBC 27. May be 2/2 to reactive process from cardiac arrest + steroids, difficult to define if underlying infection given hypothermia. Cont Empiric CAP Coverage with ceftriaxone. Urine Cultures with E.Coli >100k also, unclear if this is a potential sepsis source but 3rd gen cephalo should cover for now. Blood cx staph growth, pending identification, will repeat today after identification, identified as nonMRSA so far. GI- NPO. OGT+. noted dark coffee ground like but may be bile also. Send gastric occult blood. Cont PPI infusion. h/h stable though. May be gastritisnsert NGT. PPI for GI protection/on steroids/intubated. check LFTs Renal- Cr okay, K okay. Improved LA and metabolic acidosis. Polyuria noted, with hypernatremia and increasing. Seems free water loss+. Urine Na and Lytes dilute, may be mostly free water, suspect central DI ? Osmolarity upper normal limits. Suspect Central DI vs cerebral salt wasting syndrome as etiology of volume depletion/hypernatremia and polyuria, in setting of encephelopathy/ cardiac arrest/respiratory arrest. STarted vaospressin for pressor/ADH repletion. D5W started for free water repletion. Heme- hg okay. plt okay. Heparin SQ for dvt proph. Noted small non occl thrombus at ANTHROPOMETRIST/saph jxn. Upper GI bleeding? Follow h/h. Endo- hyperglycemia. hba1c normal. Likely stress related + steroids + D5W causing rise in glucose. Insulin Drip for goal BS <180 Musculsk- bedrest, pressure ulcer proph Wounds- none Nutrition- NPO DVT prophylaxis: SCDs, heparin sq GI prophylaxis: PPI infusion Central Line: left fem vein 08/03 Arterial Line: left fem art 08/03 Nick Cathetor: yes Disposition: ICU Code Status: full code Discussed current status with mother at bedside. answered her questions. rewarming later today. possible CT brain and dec of sedation later today but seems with hemodynamics, hypernatremia and thermoregulatory status a true neuro exam and repeat imaging will have to wait till morning or when she is more stable. Total Critical Care time is 90 minutes, excluding procedures/teaching Edgar Nichols MD [employer] (Electronically Signed)
[2017-08-04] MEDS ORDERED: NS 0.45% 1000 ML BAG* 1,000 ML IV SCH (10:00)
[2017-08-04] MEDS ORDERED: D5W 1000 ML BAG* 1,000 ML IV SCH (10:00)
--- NOTE | 2017-08-04 10:18 | ECHO ---
Patient: NYASIA YING [facility] Rec#: [id number] : 1995 Date: 08/04/2017 Age: 21y Height: 154.94 cm / 61.0 in Weight: 60.33 kg / 133.0 lbs Sex: F BSA: 1.59 Room#: ICU-2 Admit Date#: 08/03/2017 Type: Inpatient Referring: Edgar Nichols Reading: Deni Eason MD Guide Tour: Lali Manley RDCS CC: Lali Keith NP Transthoracic Echocardiogram Indication: Cardiac Arrest BP: 96/62 HR: 101 Rhythm: Tachycardia Findings History: Asthma with respiratory arrest,CPR with ROSC, intubated and mechanically ventilated, hypothermia tx in progress. Technical Comments: The study is technically limited due to patient being intubated and on a ventilator. Completed at 0950. Left Ventricle: The left ventricular chamber size is normal. There is diffuse global hypokinesis of the left ventricle. There is moderately decreased left ventricular systolic function. The estimated ejection fraction is 35-40%. The assessment of diastolic function is non-diagnostic. Left Atrium: The left atrial chamber size is normal. Right Ventricle: Moderator Band present. The right ventricular cavity size is normal. The right ventricular global systolic function is mildly reduced. Right Atrium: The right atrial cavity size is normal. Aortic Valve: The aortic valve is trileaflet. There is no evidence of aortic valve thickening. There is no evidence of aortic regurgitation. There is no evidence of aortic stenosis. Mitral Valve: The mitral valve leaflets appear normal. There is a trace of mitral regurgitation. Tricuspid Valve: The tricuspid valve leaflets are normal. There is no evidence of tricuspid valve regurgitation. Unable to estimate the right ventricular systolic pressure. Pulmonic Valve: The pulmonic valve appears normal. There is a trace pulmonic regurgitation. There is no pulmonic stenosis. Pericardium: There is no significant pericardial effusion. Aorta: There is no dilatation of the ascending aorta. There is no dilatation of the aortic arch. There is no dilation of the aortic root. Pulmonary Artery: The main pulmonary artery appears normal. Venous: Unable to accurately comment on the size collapsibility of the IVC as the patient in known to be on mechanical ventilation. Conclusions There is moderately decreased left ventricular systolic function. The estimated ejection fraction is 35-40%. There is diffuse global hypokinesis of the left ventricle. The right ventricular global systolic function is mildly reduced. Normal cardiac chamber sizes. Functionally benign heart valves. Since the prior echocardiogram completed 05/07/17, pertinent changes are prior low normal left ventricular systolic function reported and prior normal right ventricular systolic function reported. Measurements Name Value Normal Range RVIDd (AP) 2D 2.3 cm (0.9 - 2.6) RVDdMajor (2D) 2.8 cm (2.2 - 4.4) RAd ISD 4CH 3.3 cm (3.4 - 4.9) RA (A4C)W 2.7 cm (2.9 - 4.6) IVSd (2D) 0.9 cm (0.6 - 1) LVPWd (2D) 0.8 cm (0.6 - 1) LVIDd (2D) 3.8 cm (3.6 - 5.4) LVIDs (2D) 2.7 cm - LV FS (2D) 30 % (25 - 45) Aortic Annulus 1.6 cm (1.4 - 2.6) Ao root diameter (2D) 2.6 cm (2.1 - 3.5) Ascending Ao 2 cm (2.1 - 3.4) Aortic arch 2.1 cm (1.8 - 3.4) Descending Ao 1.2 cm - LA dimension (AP) 2D 2.5 cm (2.3 - 3.8) LAd ISD 4CH 3.5 cm (2.9 - 5.3) LA ISD 4CH W 3.1 cm (2.5 - 4.5) Name Value Normal Range LA ESV SP 4CH (A/L) 18 ml - LA ESV SP 2CH (A/L) 28 ml - LA ESV BP (A/L) 23 ml - LA ESV BP (A/L) index 14.32 ml/m2 - LA ESV SP 4CH (MOD) 15 ml - LA ESV SP 2CH (MOD) 26 ml - Name Value Normal Range MV E-wave Vmax 0.9 m/sec - MV deceleration time 119 msec - MV A-wave Vmax 0.7 m/sec - MV E:A ratio 1.3 ratio - LV septal e' Vmax 0.12 m/sec - LV lateral e' Vmax 0.16 m/sec - LV E:e' septal ratio 7.5 ratio - LV E:e' lateral ratio 5.62 ratio - Name Value Normal Range AV Vmax 1.2 m/sec - AV VTI 20.9 cm - AV peak gradient 5.58 mmHg - AV mean gradient 3.24 mmHg - LVOT Vmax 0.9 m/sec - LVOT VTI 14.6 cm - LVOT peak gradient 3.18 mmHg - LVOT mean gradient 1.49 mmHg - Name Value Normal Range MR Vmax 2.8 m/sec - MR VTI 43 cm - Name Value Normal Range IVC diameter 2 cm - Name Value Normal Range PV Vmax 0.6 m/sec - PV peak gradient 1.69 mmHg -
[2017-08-04] MEDS ORDERED: Vasopressin* 100 UNITS in D5W 250 ML BAG* 245 ML IVPB SCH ×2 (10:30→14:56)
[2017-08-04] MEDS: cefTRIAXone(*) 1 GM in NS 0.9% 50 ML* 50 ML IVPB SCH (10:46)
[2017-08-04] MEDS: Artificial Tear OPHTH.OINT* 3.5 GM BOTH EYES PRN (10:58)
--- NOTE | 2017-08-04 11:48 | RAD ---
Indication: Respiratory distress and failure. Single frontal view of the chest performed at 0556 hours was reviewed. Comparison is made with previous exam dated August 03, 2017. ET tube at martine. Lungs are clear. Nasogastric tube is in place. IMPRESSION: 2 LINES APPEAR IN APPROPRIATE POSITION.
[2017-08-04 13:41] LABS: EGFR Non-African American 100.4 (>60)
[2017-08-04] MEDS: D5W 1000 ML BAG* 1,000 ML IV SCH ×2 (16:23→20:47)
[2017-08-04 17:34] LABS: EGFR Non-African American 92.9 (>60)
[2017-08-04] MEDS: Insulin REGULAR IVPB 100 UNITS/100 ML UNIT IVPB SCH (17:42)
[2017-08-04] MEDS ORDERED: POTASSIUM CHLORIDE IVPB ONE (19:00)
[2017-08-04] MEDS ORDERED: NS 0.9% IVPB ONE (19:00)
[2017-08-04 21:45] LABS: EGFR Non-African American 105.4 (>60)
[2017-08-05] MEDS: Pantoprazole IV* 80 MG in NS 0.9% 250 ML* 250 ML IVPB SCH ×2 (02:40→13:31)
[2017-08-05] MEDS: Propofol* 100 ML IV SCH (02:41)
[2017-08-05] MEDS: Chlorhexidine MOUTHWASH 0.12%* 15 ML UDC TOPICAL SCH ×6 (02:41→20:55)
[2017-08-05] MEDS: D5W 1000 ML BAG* 1,000 ML IV SCH (02:41)
[2017-08-05] MEDS: Albuterol 2.5 MG/3 ML NEB.SOL* (0.083%) INH PRN (04:25)
[2017-08-05] MEDS: methylPREDNISolone SOD 40 MG* 1 ML VIAL IV SCH ×3 (04:30→20:55)
[2017-08-05] MEDS ORDERED: Albuterol 2.5 MG/3 ML NEB.SOL* (0.083%) ONE (04:51)
[2017-08-05] MEDS: Albuterol 2.5 MG/3 ML NEB.SOL* (0.083%) INH SCH ×3 (04:52→15:28)
[2017-08-05] MEDS ORDERED: NS 0.9% 1000 ML* 1,000 ML IV SCH ×2 (05:15→11:45)
[2017-08-05 05:37] LABS: Hematocrit 35 % (35-47); Hemoglobin 11.4 g/dl (12.0-16.0); Mean Corpuscular HGB Conc 33 g/dl (31-36); Mean Corpuscular Hemoglobin 29 pg (27-31); Mean Corpuscular Volume 88 fL (80-97); Mean Platelet Volume 8.2 um3 (7.4-10.4); Platelet Count 215 10^3/ul (150-450); Red Blood Count 3.93 10^6/ul (4.0-5.4); Red Cell Distribution Width 14 % (10.5-15); White Blood Count 23.7 10^3/ul (3.5-10.8)
[2017-08-05] MEDS: Norepinephrine 16MCG/ML IVPRE* 4,000 MCG/250 ML BAG IV SCH ×7 (05:50→21:19)
[2017-08-05 06:21] LABS: ABS Basophils 0 10^3/ul (0-0.2); ABS Eosinophils 0 10^3/ul (0-0.6); ABS Lymphocytes 1.1 10^3/ul (1.0-4.8); ABS Monocytes 1.2 10^3/ul (0-0.8); ABS Neutrophils 21.4 10^3/ul (1.5-7.7); ABS Nucleated RBC 0 10^3/ul; Eosinophil % 0 % (0-6); Lymphocyte % 4.7 % (25-47); Nucleated Red Blood Cells % 0
[2017-08-05] MEDS: Heparin VIAL(*) 5000 UNITS/ML VIAL (FIVE THOUSAND) SUBCUT SCH ×2 (07:31→14:23)
--- NOTE | 2017-08-05 08:14 | RAD ---
HISTORY: Respiratory failure COMPARISONS: August 04, 2017 VIEWS: 1: frontal portable view of the chest at 5:07 AM FINDINGS: LINES AND TUBES: An endotracheal tube is noted with the tip overlying the trachea between the clavicles and the martine. A gastric tube is noted. The tip is below the [id number]-hg-awdo of the current examination, but is below the diaphragm. CARDIOMEDIASTINAL SILHOUETTE: The cardiomediastinal silhouette is normal for portable technique. PLEURA: The costophrenic angles are sharp. No pleural abnormalities are noted. LUNG PARENCHYMA: The lungs are clear. ABDOMEN: The upper abdomen is clear. There is no subphrenic gas. BONES AND SOFT TISSUES: No bone or soft tissue abnormalities are noted. IMPRESSION: LINES AND TUBES ABOVE. NO ACTIVE CARDIOPULMONARY DISEASE.
[2017-08-05] MEDS ORDERED: D5W 1/4 NS 1000 ML BAG* 1,000 ML IV SCH (09:00)
[2017-08-05 10:06] LABS: EGFR Non-African American 95.8 (>60)
[2017-08-05] MEDS: cefTRIAXone(*) 1 GM in NS 0.9% 50 ML* 50 ML IVPB SCH (11:35)
--- NOTE | 2017-08-05 12:20 | CONS ---
NEUROLOGY CONSULTATION: DATE OF CONSULT: 08/05/17 LOCATION: The patient is in the ICU. REQUESTING PHYSICIAN: Dr. Hernández. 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 HISTORY OF PRESENT ILLNESS: Kaye Hilton is a 21-year-old woman with a history of asthma as well as anxiety and depression, who was admitted to the ICU on 08/03/17 with PEA cardiac arrest secondary to respiratory arrest. She had reportedly been having worsening of her asthma over the past several days and ran out of her Asmanex inhaler the day prior to admission. Her boyfriend brought her to her mother's house in the medical transport specialist hours of 08/03/17 because of progressive shortness of breath and they began to drive to the hospital, at which point her mother pulled to the side of the road because she seemed to be in even more distress, called 911 and then Kaye had a respiratory followed by a cardiac arrest. CPR was initiated in the field and she was intubated in the field, but return of spontaneous circulation was not obtained until approximately 30 minutes later. On her arrival, she had a lactate of 17.7 and her blood gas showed a pH less than 7. She underwent hypothermia protocol and yesterday during the rewarming process, she was not spontaneously rewarming, and so she has been rewarmed via the catheter that has been used to cool her and also with a Scarlet Hugger. She has had a GCS of 3 since her arrival and was on a propofol drip with p.r.n. Versed, which she has not required since 08/03/17 in the afternoon. Her propofol drip was stopped approximately an hour ago and Neurology involvement has been requested due to the concern for hypoxic ischemic encephalopathy. At the time of my evaluation, the patient's mother and boyfriend were in the room as well as the boyfriend's aunt. PAST MEDICAL HISTORY: 1. Anxiety. 2. Depression. 3. Asthma. 4. History of renal calculi. 5. Pyelonephritis. HOME MEDICATIONS: 1. Prednisone 60 mg daily. 2. Asmanex once daily. 3. Amphetamine mixed salt tabs 30 mg b.i.d. 4. Albuterol 1 to 2 puffs q.4 p.r.n. HOSPITAL MEDICATIONS: 1. Albuterol nebulizers p.r.n. 2. Lacri-Lube. 3. Ceftriaxone 1 g daily. 4. D5 quarter-normal saline at 250 mL per hour. 5. Fentanyl 50 mcg q.4 p.r.n. shivering, which has not been used since at 9:26 a.m. 6. Heparin 5000 units q.8. 7. Insulin drip at 10 mL per hour. 8. Solu-Medrol 40 mg IV q.8. 9. Lopressor 5 mg IV q.10 minutes p.r.n. tachycardia, which has not been given since 08/03/17. 10. Levophed has been stopped this morning, but she had been on that yesterday. 11. Pantoprazole drip and propofol discontinued approximately 8:30 this morning. ALLERGIES: No known drug allergies. FAMILY HISTORY: Noncontributory at this time. 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 REVIEW OF SYSTEMS: Not obtainable secondary to the patient's condition. PHYSICAL EXAM: Vital Signs: Temperature 98.6, blood pressure 122/72, heart rate 123, oxygen saturation is 99% on 35% O2 on the ventilator. On general examination, she is lying intubated in the ICU without any sedation running. She has an NG tube, which is draining bloody material. She has had significant urine output of approximately 400 mL per hour. Her heart is tachycardic with no obvious murmurs. Her lung sounds are coarse secondary to the ventilator. She has no spontaneous movements and her eyes are closed. She has some generalized edema. On neurologic examination, she is unresponsive to verbal and noxious stimulation. Her pupils are dilated at approximately 6 mm with the right one being irregular and neither are reactive to light. VORs are absent. Corneal reflexes are absent. She is not breathing above the ventilator. She does not have a gag. Her tone is flaccid in the upper and lower extremities. She does not respond to nasal tickle or noxious stimulation in the extremities. Reflexes are 2+ throughout with mute toes. DIAGNOSTIC STUDIES/LAB DATA: Her initial CBC upon admission showed a white count of 13 with hematocrit of 36 and platelets of 320. Her white count has trended upward today to 23.7 with predominance of neutrophils. The initial BMP showed a sodium of 138, chloride of 98, CO2 17, anion gap of 23 , creatinine 1.18, glucose of 395, phosphorus of 12, calcium of 8.7. Initial lactate was 17.7. Troponin after her admission was 0.2 and that has not been followed. Yesterday, her sodium trended up to 158 and today is 150. Her initial blood gas showed a pH less than 7, pCO2 of 96, pO2 of 437, at which point she was intubated. Her urinalysis has showed 3+ white cells and her culture has grown out E. coli. Her urine osm was 582 whereas serum osm was 310. Her toxicology screen was positive for opioids as well as amphetamines and she is known to be on Ritalin. I personally reviewed the brain CT which was obtained several hours after her admission on 08/03/17 and it showed diffuse loss of the méndez-white differentiation, which was concerning for early cerebral edema. Her transthoracic echocardiogram showed diffuse global hypokinesis with moderately decreased LV function and an estimated EF of 35% to 40%. IMPRESSION: Kaye Hilton is an unfortunate 21-year-old woman with a history of asthma who suffered a cardiac arrest secondary to respiratory arrest. This occurred on 08/03/17 and she underwent therapeutic hypothermia. She has had difficulty rewarming on her own and has been rewarmed through the use of the catheter as well as Scarlet Hugger. Her neurologic exam is very concerning today 1 hour off of propofol with no evidence of any brainstem function. In addition , her early CT scan showed concern for early cerebral edema. At this point, the family has just been presented with the idea that Kaye may have suffered a serious brain injury secondary to her cardiac arrest and we have counseled them that we will continue to follow her off of sedation closely looking for any potential changes in her neurologic examination. I will come back later this afternoon and reexamine her for any changes. At this point, I do not have any other recommendations for further testing, but depending on how Kaye does and how our conversations go with the family, a repeat CT scan to evaluate for any evolution of the apparent cerebral edema, which was noted on her initial CT scan might be helpful. At this point, her prognosis seems extremely grave. Thank you for this consultation. [id number]/[facility] #: [id number] ZEAN
--- NOTE | 2017-08-05 12:56 | PN ---
Date of Service: 08/05/17 Critical Care Services: Patient has been rewarmed and is now off propofol for a few hours. She has not regained consciousness at this time. More importantly, there are no pupilllary or corneal reflexes bilaterally, and no spontaneous respirations while on the ventilator. Urine output has been considerable, but Dx of diabetes insipidus seems unlikely because urine osmolality is 582 mos/kg (much too high for DI). Vital Signs: Temp Pulse Resp BP SpO2 FiO2 98.6 F 130 22 106/59 99 35 NOTE: Tachycardia is sinus (by bedside monitor). Also, currently on low-dose levophed to maintain MABP > 65 mm Hg. Physical Exam: Gen:Unresponsive HEENT:Pupils dilated bilaterally and unresponsive to light. Corneal reflecex absent bilaterally. No facial asymmetry. Lungs: No wheezes or rhonchi. BS distant. Cardiac: Regular rate. No murmurs or rubs. Abdomen:Not distended. Extremities: Warm. No cyanosis or edema. Neuro: As described. Fluid Balance (Past 24 Hours): I= O= Net Intake & Output 08/04/17 08/05/17 06:59 06:59 Intake Total 5634.6 6016.8 Output Total 3105 4434 Balance +2529.6 +1582.8 Weight 128 lb 142 lb Intake: IV Fluids 4786.5 4269 ABX - CEFTRIAXONE 150 D5W 3988 K Chloride 281 LR 4060 NS (0.9%) 576.5 IVPB 110 50 ABX - CEFTRIAXONE 60 50 LR 50 Medicated IV 638.1 1577.8 CC - Insulin 25.7 107 CC - Norepinephrine/ 162 460 Levophed CC - Propofol/Diprivan 337 345 CC - Vasopressin/ 63.8 Pitressin GEN - Diltiazem/Cardizem 91.4 GEN - Pantoprazole/ 22 602 Protonix Tube Feeding Flush Amount 100 120 Output: NG Tube Drainage Amount 450 G Tube 300 Urine 450 Nick 3105 3234 Labs: 08/04/17 08/04/17 08/04/17 19:16 20:05 20:09 POC Glucose (mg/dL) 139 H 133 H Urine Osmolality 582 08/04/17 08/04/17 08/04/17 21:04 21:15 21:15 Sodium 150 H Potassium 4.2 Chloride 123 H Carbon Dioxide 23 Anion Gap 4 BUN 14 Creatinine 0.69 Glucose 71 POC Glucose (mg/dL) 85 Serum Osmolality 310 Lactic Acid Calcium 8.5 L 08/05/17 08/05/17 08/05/17 05:10 05:15 06:22 WBC 23.7 Hgb 11.4 Hct 35 Plt Count 215 POC Glucose (mg/dL) 130 H 119 H 08/05/17 08/05/17 08/05/17 07:35 08:09 09:07 Sodium 150 Potassium 4.9 Chloride 121 Carbon Dioxide 23 BUN 14 Creatinine 0.75 Glucose 120 H POC Glucose (mg/dL) 127 128 Serum Osmolality Lactic Acid Calcium 8.9 Magnesium Studies: CXR: No infiltrates or cardiomegaly. Nutrition: None Impression: No clinical evidence of brainstem activity at the present time. Plan: Continue off sedatives. If patient continues to show no signs of brainstem activity, we will proceed with a brain evaluation. Neurology (Dr. Sr) is actively involved. I briefly spoke with patient's mother today, but have not mentioned the possibility of a very poor prognosis at this time. Critical Care Time: 50 minutes
[2017-08-05 17:48] LABS: EGFR Non-African American 81.8 (>60)
[2017-08-05 21:45] LABS: EGFR Non-African American 77.6 (>60)
--- NOTE | 2017-08-05 23:46 | PN ---
FOLLOWUP NOTE: DATE OF FOLLOWUP: 08/05/17 HISTORY: There has been no change in Kaye's neurologic status. She had to be restarted on fluid s and dose of Levophed because her blood pressure became soft. She has required continuous use of the Scarlet Hugger as well as the catheter in order to maintain normothermia. After I saw Kaye this mo rning, I discussed with Dr. Landers stopping the dextrose solution since she had been exhibiting some hyperglycemia and requiring insulin with the goal of having her be normoglycemic. Kaye's mother w as present at the time of my second evaluation today. Medications were reviewed and Kaye has not received any sedating medications today. PHYSICAL EXAMINATION: Vital Signs: Temperature 98.4, blood pressure 101/45, heart rate 126, oxygen saturation is 98% on the ventilator. Her blood pressures around 2 p.m. had dropped to 90/45 with her heart rate remaining in the 120s. On examination, Kaye is intubated and unresponsive. Her eyes are closed. Her heart is tachycard ic. She does not respond to voice, sternal rub, or noxious stimulation. The pupils are unequal, but both are now round. The right pupil is approximately 4 mm while the left is 6 mm and neither is alem ctive to light. VLRs are absent. Corneal reflexes are absent. She does not respond to nasal tickle . She has no gag. She is not breathing over the ventilator though it is set at 22 breaths per minute . Her tone is flaccid in the upper and lower extremities and she does not withdraw to noxious stimul ation. Her toes are mute. She has some generalized edema. DATA: Her sodium today has trended up to 152 from 150 this morning. Her most recent blood glucose i s 153. 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 Neurologically, she is unchanged this afternoon off propofol since this morning. I discussed with Kaye's mother the fact that there has been no neurologic change and also the fact that her blood pressure is needing to be supported with medications and fluids and she has not been able to maintai n a normal body temperature, all of which are concerning for significant brain injury secondary to hy poxia. Her mother was appreciative of this information and had questions with respect to how long Sa freeman should be monitored prior to any further testing in terms of her brain function. Kaye's m other would feel most comfortable with continued monitoring for approximately 24 hours before any fur ther testing for brain such as cold calorics and apnea testing. I discussed this with Dr. Bre nogueira and we agreed that Kaye be given this period of time to assess for any change in her neurologi c function. I will follow up again in the morning and will discuss again with Kaye's mother. [id number]/[facility] #: [id number]
[2017-08-06] MEDS: Chlorhexidine MOUTHWASH 0.12%* 15 ML UDC TOPICAL SCH ×6 (00:25→21:05)
[2017-08-06] MEDS: Pantoprazole IV* 80 MG in NS 0.9% 250 ML* 250 ML IVPB SCH ×4 (00:31→20:31)
[2017-08-06] MEDS: Heparin VIAL(*) 5000 UNITS/ML VIAL (FIVE THOUSAND) SUBCUT SCH ×4 (00:34→21:52)
[2017-08-06] MEDS: Insulin REGULAR IVPB 100 UNITS/100 ML UNIT IVPB SCH (02:00)
--- NOTE | 2017-08-06 03:06 | PN ---
Progress Note - Progress Note Date of Service: 08/05/17 Note: Case discussed w/ P MD Anshul critical care regarding elevated Na. Plan is to allow hyperNatremia to prevent further cerebral edema and decrease risk of herniation.
[2017-08-06] MEDS: Albuterol 2.5 MG/3 ML NEB.SOL* (0.083%) INH PRN ×2 (03:50→08:31)
[2017-08-06] MEDS: methylPREDNISolone SOD 40 MG* 1 ML VIAL IV SCH ×2 (05:08→13:43)
[2017-08-06] MEDS: Norepinephrine 16MCG/ML IVPRE* 4,000 MCG/250 ML BAG IV SCH ×5 (05:09→21:05)
[2017-08-06 06:02] LABS: Hematocrit 33 % (35-47); Hemoglobin 10.6 g/dl (12.0-16.0); Mean Corpuscular HGB Conc 32 g/dl (31-36); Mean Corpuscular Hemoglobin 29 pg (27-31); Mean Corpuscular Volume 90 fL (80-97); Mean Platelet Volume 8.2 um3 (7.4-10.4); Platelet Count 222 10^3/ul (150-450); Red Blood Count 3.68 10^6/ul (4.0-5.4); Red Cell Distribution Width 15 % (10.5-15); White Blood Count 25.8 10^3/ul (3.5-10.8)
[2017-08-06 06:21] LABS: EGFR Non-African American 69.5 (>60)
[2017-08-06 07:29] LABS: ABS Basophils 0 10^3/ul (0-0.2); ABS Eosinophils 0 10^3/ul (0-0.6); ABS Monocytes 1.3 10^3/ul (0-0.8); ABS Neutrophils 23.4 10^3/ul (1.5-7.7); ABS Nucleated RBC 0 10^3/ul; Eosinophil % 0.1 % (0-6); Nucleated Red Blood Cells % 0
[2017-08-06] MEDS ORDERED: NS 0.45% 1000 ML BAG* 1,000 ML IV SCH (10:00)
[2017-08-06] MEDS ORDERED: D5W 500 ML BAG* 500 ML IVPB ONE (10:00)
[2017-08-06] MEDS ORDERED: Vasopressin* 100 UNITS in D5W 250 ML BAG* 245 ML IVPB SCH (11:30)
[2017-08-06] MEDS ORDERED: D5W 500 ML BAG* 500 ML IV ONE (12:00)
[2017-08-06] MEDS: cefTRIAXone(*) 1 GM in NS 0.9% 50 ML* 50 ML IVPB SCH (12:01)
--- NOTE | 2017-08-06 14:11 | PN ---
FOLLOWUP NOTE: DATE OF FOLLOWUP: 08/06/17. HISTORY: No acute overnight events. Amara sodium has continued to trend up to 166. She continu es to require external warming. There has been no change in her neurologic status. Her mother has a dditional support here today with her sister as well as two friends of Amara. Her mother also t old me that Tristens brother is coming into town delmy and some other family members from various parts of [place] will here tomorrow morning. MEDICATIONS: 1. Albuterol nebulizers. 2. Lacri-Lube. 3. Ceftriaxone 1 g daily. 4. Chlorhexidine mouth wash. 5. D5 bolus of 500 mL given this morning. 6. Fentanyl 50 mcg which has not been used since 08/03. 7. Heparin 5000 units q. 8 hours. 8. Insulin drip. 9. Solu-Medrol 40 mg q. 8 hours. 10. Pantoprazole drip. PHYSICAL EXAMINATION: Vital Signs: Temperature 98.4, blood pressure 112/65, heart rate 129, oxygen saturation is 96% on the ventilator. On examination, Kaye is intubated and unresponsive. Her eyes are closed. Her heart is tachycard ic. She has some generalized edema as well as scleral edema. She is unresponsive to verbal or noxiou s stimulation. The pupils are round but asymmetric with the right approximately 4 mm and the left 5 to 6 mm and neither are reactive to light. VORs are absent. Corneal reflexes are absent. There is no response to nasal tickle. She has no gag response. Tone is flaccid in the upper and lower extrem ities. There is no withdrawal to noxious stimulation. Reflexes are 2+ in the left brachioradialis b ut otherwise she is hyporeflexic. Toes are mute. LABORATORY DATA: CBC this morning shows white count of 25.8, hematocrit 33, hemoglobin 10.6, and regina telets of 222. BMP this morning showed a sodium of 166, chloride of 138, CO2 of 20, creatinine of 0. 99, glucose of 132. Sodium is repeated at 10 o'clock this morning and is still 166. 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 There is no change in Tristens neurologic function. She has no brain stem reflexes. I discussed this with patient's mother today and she would be prepared for fur ther testing for brain such as cold calorics and apnea testing but asks that we support Betito don until additional family is able to be here which will be tomorrow morning at the latest. In the az antime, I discussed with Dr. Landers attempting to correct the sodium as best we can if a formal brain determination is going to be made. The hypernatremia would not cause loss of brain stem reflex es that Kaye is exhibiting but it would be preferable to have this less than 160 if possible; how ever, I did discuss with Kaye's mother that the likely underlying reason for this metabolic deran gemzhang has to do with her significant brain injury rather than the sodium causing any primary alterat ion in her neurologic function. I will continue to follow patient along with you. [id number]/[facility] #: [id number]
[2017-08-06] MEDS: Insulin LISPRO* 1 UNITS UNIT SUBCUT SCH ×3 (14:21→22:03)
[2017-08-06] MEDS: D5W 1000 ML BAG* 1,000 ML IV SCH ×2 (14:44→23:47)
--- NOTE | 2017-08-06 15:15 | PN ---
Date of Service: 08/06/17 Critical Care Services: Clinical condition basically unchanged over past 48 hrs. Continues to have no clinical evidence of brainstem activity. Serum sodium continues to climb (up to 166) - started on vasopressin drip today but stopped because of hypertension. IVs switched back to D5W. Vital Signs: Temp Pulse Resp BP SpO2 FiO2 98.6 F 123 22 101/55 98 40 NOTE: Tachycardia is a sinus rhythm. Physical Exam: Gen: Unresponsive, on ventilator HEENT: Pupils dilated and unresponsive. Corneal reflexes absent bilaterally. Gag is also absent. Lungs: Occasional rhonchi Abdomen:Not distended. Extremities: No cyanosis or edema. Fluid Balance (Past 24 Hours): 08/06/17 06:59 Intake Total 2701.2 Output Total 4970 Balance -2268.8 Weight 145 lboz Intake: IV Fluids 1676 ABX - CEFTRIAXONE 55 D5W D5W 1/4 NS 203 K Chloride LR NS (0.45%) NS (0.9%) 1418 IVPB ABX - CEFTRIAXONE LR Medicated IV 905.2 CC - Insulin 54.9 CC - Norepinephrine/ 261.9 Levophed CC - Propofol/Diprivan 27.4 CC - Vasopressin/ Pitressin GEN - Diltiazem/Cardizem GEN - Pantoprazole/ 561 Protonix Tube Feeding Flush Amount 120 Output: NG Tube Drainage Amount G Tube Urine 300 Nick 4681 ADLs: Meal Record Start: 08/03/17 06: 41 Freq: 09,,18 Status: Active Protocol: Created 08/03/17 06:41 System (Rec: 08/03/17 06:41 System ICU-M06) Document 08/03/17 09:00 [id number] (Rec: 08/03/17 11:09 [id number] ICU-M06) Document 08/03/17 13:00 [id number] (Rec: 08/03/17 13:01 ODZ1932 ICU-M06) Document 08/03/17 18:00 [id number] (Rec: 08/03/17 18:08 SJT3010 ICU-C16) Document 08/04/17 09:00 QDP5231 (Rec: 08/04/17 09:13 [id number] ICU-M06) Document 08/04/17 13:00 WZE9471 (Rec: 08/04/17 13:31 [id number] ICU-M06) Document 08/04/17 17:59 FVM0832 (Rec: 08/04/17 17:59 FHE4259 ICU-M06) Document 08/05/17 09:00 UGX5758 (Rec: 08/05/17 09:32 XNV4083 ICU-M06) Document 08/05/17 13:00 PHR7515 (Rec: 08/05/17 14:06 QSG5827 ICU-M06) Document 08/05/17 18:00 DOM4743 (Rec: 08/05/17 18:47 HAF6360 ICU-M06) Document 08/06/17 09:00 QEX1500 (Rec: 08/06/17 09:14 ADI1088 ICU-C16) Document 08/06/17 13:00 ABM1525 (Rec: 08/06/17 13:33 YYH6093 ICU-C20) Intake and Output Start: 08/03/17 06: 41 Freq: Q1HR Status: Active Protocol: Created 08/03/17 06:41 System (Rec: 08/03/17 06:41 System ICU-M06) Document 08/03/17 14:00 YEK0109 (Rec: 08/03/17 14:56 LYN8210 ICU-M06) Document 08/03/17 19:00 MHW5876 (Rec: 08/04/17 01:57 FOX3695 ICU-C16) Document 08/03/17 20:00 ZAM3209 (Rec: 08/04/17 01:59 PXY7785 ICU-C16) Document 08/03/17 21:00 PZX7078 (Rec: 08/04/17 01:59 HDY5529 ICU-C16) Document 08/03/17 22:00 VLQ0479 (Rec: 08/04/17 01:59 ZFK0713 ICU-C16) Document 08/03/17 23:00 AIK0773 (Rec: 08/04/17 02:00 WFS4048 ICU-C16) Document 08/04/17 00:00 LEX2317 (Rec: 08/04/17 02:00 VAX5329 ICU-C16) Document 08/04/17 01:00 UVS0460 (Rec: 08/04/17 02:00 FBS7065 ICU-C16) Document 08/04/17 02:00 FQR3082 (Rec: 08/04/17 02:05 DOA1371 ICU-M06) Document 08/04/17 03:00 USN3481 (Rec: 08/04/17 04:04 CEX0733 ICU-M06) Document 08/04/17 04:00 GEL2469 (Rec: 08/04/17 04:04 KUD9206 ICU-M06) Document 08/04/17 05:00 MQJ5550 (Rec: 08/04/17 07:40 FEJ2654 ICU-C16) Document 08/04/17 06:00 SMA3471 (Rec: 08/04/17 07:40 OOK2421 ICU-C16) Document 08/04/17 07:00 MJR2573 (Rec: 08/04/17 07:40 GRZ6575 ICU-C16) Document 08/04/17 08:00 FGS3259 (Rec: 08/04/17 09:18 QNR3447 ICU-M06) Document 08/04/17 09:00 UCQ8722 (Rec: 08/04/17 09:18 TOJ5298 ICU-M06) Document 08/04/17 10:00 BQF6926 (Rec: 08/04/17 10:45 WVE3103 ICU-M06) Document 08/04/17 11:00 FDC0903 (Rec: 08/04/17 11:02 HIL0110 ICU-M06) Document 08/04/17 12:00 RQB3398 (Rec: 08/04/17 12:57 NJM1290 ICU-C10) Document 08/04/17 13:00 OEO3063 (Rec: 08/04/17 13:22 GWW7603 ICU-C10) Document 08/04/17 14:00 DJT1306 (Rec: 08/04/17 14:30 YHE2199 ICU-M06) Document 08/04/17 15:00 DDA4791 (Rec: 08/04/17 15:08 OKT9170 ICU-M06) Document 08/04/17 16:00 VYY4416 (Rec: 08/04/17 16:33 UKL0594 ICU-C10) Document 08/04/17 17:00 DLW5097 (Rec: 08/04/17 17:11 ZJC0004 ICU-M06) Document 08/04/17 17:58 DHX3200 (Rec: 08/04/17 17:58 DLG0984 ICU-M06) Document 08/04/17 19:00 YCG6652 (Rec: 08/04/17 19:43 MXM5466 ICU-M06) Document 08/04/17 20:00 FMD0474 (Rec: 08/05/17 02:02 YPW8996 ICU-C16) Document 08/04/17 21:00 ZNN6119 (Rec: 08/05/17 02:31 RJQ4687 ICU-C16) Document 08/04/17 22:00 HFV6186 (Rec: 08/05/17 02:31 RGZ8953 ICU-C16) Document 08/04/17 23:00 SNC9722 (Rec: 08/05/17 02:31 EIO7895 ICU-C16) Document 08/05/17 00:00 JJP8143 (Rec: 08/05/17 02:31 JQS3687 ICU-C16) Document 08/05/17 01:00 SDO2825 (Rec: 08/05/17 02:31 ETQ0684 ICU-C16) Document 08/05/17 02:00 ITU3467 (Rec: 08/05/17 02:31 MCQ2379 ICU-C16) Document 08/05/17 03:00 CKF5724 (Rec: 08/05/17 05:37 FQN9664 ICU-C16) Document 08/05/17 04:00 MQN6689 (Rec: 08/05/17 05:37 REE5518 ICU-C16) Document 08/05/17 05:00 IRV6572 (Rec: 08/05/17 05:37 PDS2046 ICU-C16) Document 08/05/17 06:00 KWY0890 (Rec: 08/05/17 06:36 AWV7640 ICU-M06) Document 08/05/17 07:00 GFZ6238 (Rec: 08/05/17 07:37 KIA1562 ICU-M06) Document 08/05/17 08:00 VTW1793 (Rec: 08/05/17 08:10 RAU3004 ICU-M06) Document 08/05/17 09:00 AJT8480 (Rec: 08/05/17 09:27 GPE7606 ICU-M06) Document 08/05/17 10:00 QLW4294 (Rec: 08/05/17 10:03 KAA0943 ICU-M06) Document 08/05/17 11:00 YIJ4226 (Rec: 08/05/17 11:30 BMG2877 ICU-M06) Document 08/05/17 12:00 QZI3977 (Rec: 08/05/17 14:05 IAJ3900 ICU-M06) Document 08/05/17 13:00 HWH8074 (Rec: 08/05/17 14:05 MXZ3806 ICU-M06) Document 08/05/17 14:00 POX8769 (Rec: 08/05/17 14:12 NDH5968 ICU-M06) Document 08/05/17 15:00 CYY4953 (Rec: 08/05/17 15:25 DOV5551 ICU-M06) Document 08/05/17 16:00 LNZ8945 (Rec: 08/05/17 16:06 EBC0473 ICU-M06) Document 08/05/17 17:00 WEC3675 (Rec: 08/05/17 17:16 UQS8069 ICU-M06) Document 08/05/17 18:00 NDZ8634 (Rec: 08/05/17 18:47 LXN9720 ICU-M06) Document 08/05/17 19:00 DPW3550 (Rec: 08/05/17 23:34 VPY1991 ICU-C16) Document 08/05/17 20:00 JLE2195 (Rec: 08/05/17 23:34 DLI2491 ICU-C16) Document 08/05/17 21:00 RBZ1051 (Rec: 08/05/17 23:34 QXS9945 ICU-C16) Document 08/05/17 22:00 NTU7655 (Rec: 08/05/17 23:34 KMU6652 ICU-C16) Document 08/05/17 23:00 QJE6463 (Rec: 08/05/17 23:34 UJK5248 ICU-C16) Document 08/06/17 00:00 AJN3359 (Rec: 08/06/17 02:55 MVU3508 ICU-C16) Document 08/06/17 01:00 TYR3478 (Rec: 08/06/17 02:56 ODO8274 ICU-C16) Document 08/06/17 02:00 MKL9496 (Rec: 08/06/17 02:56 BEU4221 ICU-C16) Document 08/06/17 03:00 QAZ6708 (Rec: 08/06/17 04:49 MPQ0091 ICU-C16) Document 08/06/17 04:00 IGV4690 (Rec: 08/06/17 05:20 WLM4806 ICU-M06) Document 08/06/17 05:00 YLX8232 (Rec: 08/06/17 05:27 RIK6826 ICU-M06) Document 08/06/17 06:00 PMH8408 (Rec: 08/06/17 06:28 ULS1559 ICU-C16) Document 08/06/17 07:00 MUY3633 (Rec: 08/06/17 07:26 NSA1039 ICU-C10) Document 08/06/17 08:00 PIK4598 (Rec: 08/06/17 08:30 XSN7387 ICU-C16) Document 08/06/17 09:00 VSO6575 (Rec: 08/06/17 09:14 LHS2827 ICU-C16) Document 08/06/17 10:00 ICQ0798 (Rec: 08/06/17 10:22 ILZ8791 ICU-C16) Document 08/06/17 11:00 CKE5937 (Rec: 08/06/17 11:17 SBM7551 ICU-C10) Document 08/06/17 12:00 WXC9047 (Rec: 08/06/17 13:59 LZM4877 ICU-C16) Document 08/06/17 13:00 AAH9594 (Rec: 08/06/17 14:00 NLP1156 ICU-C16) Document 08/06/17 14:00 BNF1104 (Rec: 08/06/17 14:10 RNA4593 ICU-C16) Document 08/06/17 15:00 BXN6094 (Rec: 08/06/17 15:02 VQZ3267 ICU-C16) Labs: Laboratory Results - last 24 hr 08/05/17 08/05/17 08/05/17 15:25 16:05 17:10 WBC RBC Hgb Hct MCV MCH MCHC RDW Plt Count MPV Neut % (Auto) Lymph % (Auto) Kay % (Auto) Eos % (Auto) Baso % (Auto) Absolute Neuts (auto) Absolute Lymphs (auto) Absolute Monos (auto) Absolute Eos (auto) Absolute Basos (auto) Absolute Nucleated RBC Nucleated RBC % Sodium 157 H* Potassium 4.3 Chloride 126 H Carbon Dioxide 23 Anion Gap 8 BUN 12 Creatinine 0.86 Est GFR ( Amer) 105.2 Est GFR (Non-Af Amer) 81.8 BUN/Creatinine Ratio 14.0 Glucose 135 H POC Glucose (mg/dL) 149 H 145 H Calcium 9.2 08/05/17 08/05/17 08/05/17 17:15 18:05 19:20 WBC RBC Hgb Hct MCV MCH MCHC RDW Plt Count MPV Neut % (Auto) Lymph % (Auto) Kay % (Auto) Eos % (Auto) Baso % (Auto) Absolute Neuts (auto) Absolute Lymphs (auto) Absolute Monos (auto) Absolute Eos (auto) Absolute Basos (auto) Absolute Nucleated RBC Nucleated RBC % Sodium Potassium Chloride Carbon Dioxide Anion Gap BUN Creatinine Est GFR ( Amer) Est GFR (Non-Af Amer) BUN/Creatinine Ratio Glucose POC Glucose (mg/dL) 142 H 145 H 147 H Calcium 08/05/17 08/05/17 08/05/17 20:08 21:13 21:14 WBC RBC Hgb Hct MCV MCH MCHC RDW Plt Count MPV Neut % (Auto) Lymph % (Auto) Kay % (Auto) Eos % (Auto) Baso % (Auto) Absolute Neuts (auto) Absolute Lymphs (auto) Absolute Monos (auto) Absolute Eos (auto) Absolute Basos (auto) Absolute Nucleated RBC Nucleated RBC % Sodium 159 H* Potassium 4.1 Chloride 131 H Carbon Dioxide 22 Anion Gap 6 BUN 12 Creatinine 0.90 Est GFR ( Amer) 99.8 Est GFR (Non-Af Amer) 77.6 BUN/Creatinine Ratio 13.3 Glucose 132 H POC Glucose (mg/dL) 153 H 144 H Calcium 9.4 08/05/17 08/05/17 08/06/17 22:06 23:18 00:21 WBC RBC Hgb Hct MCV MCH MCHC RDW Plt Count MPV Neut % (Auto) Lymph % (Auto) Kay % (Auto) Eos % (Auto) Baso % (Auto) Absolute Neuts (auto) Absolute Lymphs (auto) Absolute Monos (auto) Absolute Eos (auto) Absolute Basos (auto) Absolute Nucleated RBC Nucleated RBC % Sodium Potassium Chloride Carbon Dioxide Anion Gap BUN Creatinine Est GFR ( Amer) Est GFR (Non-Af Amer) BUN/Creatinine Ratio Glucose POC Glucose (mg/dL) 142 H 149 H 157 H Calcium 08/06/17 08/06/17 08/06/17 01:16 01:21 02:05 WBC RBC Hgb Hct MCV MCH MCHC RDW Plt Count MPV Neut % (Auto) Lymph % (Auto) Kay % (Auto) Eos % (Auto) Baso % (Auto) Absolute Neuts (auto) Absolute Lymphs (auto) Absolute Monos (auto) Absolute Eos (auto) Absolute Basos (auto) Absolute Nucleated RBC Nucleated RBC % Sodium 164 H* Potassium 4.1 Chloride 134 H Carbon Dioxide 21 L Anion Gap 9 BUN 11 Creatinine 0.96 H Est GFR ( Amer) 92.6 Est GFR (Non-Af Amer) 72.0 BUN/Creatinine Ratio 11.5 Glucose 135 H POC Glucose (mg/dL) 140 H 151 H Calcium 9.5 08/06/17 08/06/17 08/06/17 03:17 04:35 05:23 WBC RBC Hgb Hct MCV MCH MCHC RDW Plt Count MPV Neut % (Auto) Lymph % (Auto) Kay % (Auto) Eos % (Auto) Baso % (Auto) Absolute Neuts (auto) Absolute Lymphs (auto) Absolute Monos (auto) Absolute Eos (auto) Absolute Basos (auto) Absolute Nucleated RBC Nucleated RBC % Sodium Potassium Chloride Carbon Dioxide Anion Gap BUN Creatinine Est GFR ( Amer) Est GFR (Non-Af Amer) BUN/Creatinine Ratio Glucose POC Glucose (mg/dL) 141 H 149 H 142 H Calcium 08/06/17 08/06/17 08/06/17 05:41 05:41 06:20 WBC 25.8 H RBC 3.68 L Hgb 10.6 L Hct 33 L MCV 90 MCH 29 MCHC 32 RDW 15 Plt Count 222 MPV 8.2 Neut % (Auto) 90.7 H Lymph % (Auto) 4.0 L Kay % (Auto) 5.1 Eos % (Auto) 0.1 Baso % (Auto) 0.1 Absolute Neuts (auto) 23.4 H Absolute Lymphs (auto) 1.0 Absolute Monos (auto) 1.3 H Absolute Eos (auto) 0 Absolute Basos (auto) 0 Absolute Nucleated RBC 0 Nucleated RBC % 0 Sodium 166 H* Potassium 3.9 Chloride 138 H Carbon Dioxide 20 L Anion Gap 8 BUN 12 Creatinine 0.99 H Est GFR ( Amer) 89.4 Est GFR (Non-Af Amer) 69.5 BUN/Creatinine Ratio 12.1 Glucose 132 H POC Glucose (mg/dL) 142 H Calcium 9.7 08/06/17 08/06/17 08/06/17 07:23 08:01 09:12 WBC RBC Hgb Hct MCV MCH MCHC RDW Plt Count MPV Neut % (Auto) Lymph % (Auto) Kay % (Auto) Eos % (Auto) Baso % (Auto) Absolute Neuts (auto) Absolute Lymphs (auto) Absolute Monos (auto) Absolute Eos (auto) Absolute Basos (auto) Absolute Nucleated RBC Nucleated RBC % Sodium Potassium Chloride Carbon Dioxide Anion Gap BUN Creatinine Est GFR ( Amer) Est GFR (Non-Af Amer) BUN/Creatinine Ratio Glucose POC Glucose (mg/dL) 140 H 144 H 171 H Calcium 08/06/17 08/06/17 08/06/17 10:08 10:10 11:15 WBC RBC Hgb Hct MCV MCH MCHC RDW Plt Count MPV Neut % (Auto) Lymph % (Auto) Kay % (Auto) Eos % (Auto) Baso % (Auto) Absolute Neuts (auto) Absolute Lymphs (auto) Absolute Monos (auto) Absolute Eos (auto) Absolute Basos (auto) Absolute Nucleated RBC Nucleated RBC % Sodium 166 H* Potassium Chloride Carbon Dioxide Anion Gap BUN Creatinine Est GFR ( Amer) Est GFR (Non-Af Amer) BUN/Creatinine Ratio Glucose POC Glucose (mg/dL) 263 H 221 H Calcium 08/06/17 08/06/17 08/06/17 12:09 13:11 13:14 WBC RBC Hgb Hct MCV MCH MCHC RDW Plt Count MPV Neut % (Auto) Lymph % (Auto) Kay % (Auto) Eos % (Auto) Baso % (Auto) Absolute Neuts (auto) Absolute Lymphs (auto) Absolute Monos (auto) Absolute Eos (auto) Absolute Basos (auto) Absolute Nucleated RBC Nucleated RBC % Sodium 166 H* Potassium Chloride Carbon Dioxide Anion Gap BUN Creatinine Est GFR ( Amer) Est GFR (Non-Af Amer) BUN/Creatinine Ratio Glucose POC Glucose (mg/dL) 316 H 268 H Calcium 08/06/17 14:07 WBC RBC Hgb Hct MCV MCH MCHC RDW Plt Count MPV Neut % (Auto) Lymph % (Auto) Kay % (Auto) Eos % (Auto) Baso % (Auto) Absolute Neuts (auto) Absolute Lymphs (auto) Absolute Monos (auto) Absolute Eos (auto) Absolute Basos (auto) Absolute Nucleated RBC Nucleated RBC % Sodium Potassium Chloride Carbon Dioxide Anion Gap BUN Creatinine Est GFR ( Amer) Est GFR (Non-Af Amer) BUN/Creatinine Ratio Glucose POC Glucose (mg/dL) 230 H Calcium Studies: None Nutrition: None Impression: 1. Brain still a very likely diagnosis. 2. Progressive hypernatremia (to 166 mEq/L) is disturbing - Although Dx of DI is not clear (especially with urine osmolality of 580 mosm/kg), I will Rx as DI with desmopressin (subQ) and D5W infusions. Plan: Rx for DI as mentioned above. Plan now is to get serum dosium below 160 mEq/L, then proceed with brain determination. Nuerology service is actively following. Patient's mother and numerous relatives are at the bedside, and are aware of the current Dx and prognosis. Patient is now a DNR. Critical Care Time: 45 minutes
[2017-08-06] MEDS: Desmopressin Acetate* 4 MCG/ML 1 ML SDV SUBCUT SCH (16:07)
[2017-08-07] MEDS: Chlorhexidine MOUTHWASH 0.12%* 15 ML UDC TOPICAL SCH ×4 (00:59→15:27)
[2017-08-07] MEDS: Insulin LISPRO* 1 UNITS UNIT SUBCUT SCH ×3 (00:59→10:50)
[2017-08-07 05:42] LABS: ABS Basophils 0 10^3/ul (0-0.2); ABS Eosinophils 0 10^3/ul (0-0.6); ABS Lymphocytes 1.8 10^3/ul (1.0-4.8); ABS Monocytes 0.9 10^3/ul (0-0.8); ABS Neutrophils 11.2 10^3/ul (1.5-7.7); ABS Nucleated RBC 0 10^3/ul; Eosinophil % 0.1 % (0-6); Hematocrit 29 % (35-47); Hemoglobin 9.2 g/dl (12.0-16.0); Mean Corpuscular HGB Conc 32 g/dl (31-36); Mean Corpuscular Hemoglobin 29 pg (27-31); Mean Corpuscular Volume 90 fL (80-97); Mean Platelet Volume 7.9 um3 (7.4-10.4); Nucleated Red Blood Cells % 0.1; Platelet Count 133 10^3/ul (150-450); Red Blood Count 3.18 10^6/ul (4.0-5.4); Red Cell Distribution Width 15 % (10.5-15); White Blood Count 13.9 10^3/ul (3.5-10.8)
[2017-08-07] MEDS: Heparin VIAL(*) 5000 UNITS/ML VIAL (FIVE THOUSAND) SUBCUT SCH (05:42)
[2017-08-07] MEDS: Pantoprazole IV* 80 MG in NS 0.9% 250 ML* 250 ML IVPB SCH (05:46)
[2017-08-07 05:58] LABS: EGFR Non-African American 78.6 (>60)
[2017-08-07] MEDS: Norepinephrine 16MCG/ML IVPRE* 4,000 MCG/250 ML BAG IV SCH ×2 (06:34→11:29)
--- NOTE | 2017-08-07 07:51 | RAD ---
HISTORY: Hypoxia COMPARISONS: August 05, 2017 VIEWS: 2: frontal portable view of the chest at 6:00 AM FINDINGS: LINES AND TUBES: An endotracheal tube is noted with the tip overlying the trachea between the clavicles and the martine. A gastric tube is noted, with the tip in the left upper quadrant in a prepyloric position.. CARDIOMEDIASTINAL SILHOUETTE: The cardiomediastinal silhouette is normal for portable technique. PLEURA: The costophrenic angles are sharp. No pleural abnormalities are noted. LUNG PARENCHYMA: There is confluent alveolar opacification of the right lower lung. ABDOMEN: The upper abdomen is clear. There is no subphrenic gas. BONES AND SOFT TISSUES: No bone or soft tissue abnormalities are noted. IMPRESSION: 1. LINES AND TUBES ABOVE. 2. RIGHT LOWER LUNG CONSOLIDATION.
[2017-08-07] MEDS: D5W 1000 ML BAG* 1,000 ML IV SCH (10:36)
[2017-08-07] MEDS: Desmopressin Acetate* 4 MCG/ML 1 ML SDV SUBCUT SCH (10:41)
--- NOTE | 2017-08-07 13:49 | PN ---
PROGRESS NOTE: DATE OF FOLLOWUP: 08/07/17 HISTORY: No acute overnight events. Kaye's neurologic status has remained unchanged. MEDICATIONS: Reviewed and include: 1. Lacri-Lube. 2. Chlorhexidine mouthwash. 3. DDAVP 4 mcg daily. 4. D5W 100 mL/hour. 5. Heparin 5000 units q.8 hours. 6. Insulin drip. 7. Lopressor 5 mg p.r.n., which has not been required since 08/03/17. 8. Pantoprazole 80 mg q.10 hours IV. PHYSICAL EXAMINATION: Vital Signs: Temperature 98.6, blood pressure 130/75, heart rate 129, oxygen saturation 99% on the ventilator. On general exam, Kaye is intubated and unresponsive in the ICU. Her heart is tachycardic. The lung sounds are coarse. On neurologic exam, she is unresponsive to noxious stimulation. Pupils are unequal, but round with right being approximately 5 mm, and the left 6 to 7 mm and both are nonreactive to light. There is no VOR response. Corneals are absent. There is no response to nasal tickle. She does not have a gag. Her motor examination, her tone is flaccid throughout. There is no withdrawal to noxious stimulation. Reflexes are 2+ in the upper extremities with mute toes. LABORATORY DATA: CBC shows a white count of 13.9, hematocrit of 29, hemoglobin 9.2, and platelets of 133, which is down from 222 yesterday. Chemistry panel this morning shows the sodium of 116, improved from 166 yesterday, chloride of 130 and normal renal function. Her glucose this morning was 170. A recent chest x-ray was reviewed with Dr. Landers and he feels that there is evidence of a pleural effusion on the right, but no clear parenchymal disease within the lung. 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 She remains without any brainstem reflexes. 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 We plan to proceed with the cold calorics and apnea test most likely later this afternoon after the rest of Kaye's family arrives. I will available to perform the confirmatory brain examination. [id number]/[facility] #: [id number] ZENA
--- NOTE | 2017-08-07 15:24 | DS ---
NOTE AND SUMMARY 21 y/o female admitted 08/03 following acute astma exacerbation which progressed to cardiac arrest - ischemic time estimated at 30 minutes and admission serum lactate was 17 mEq/L. After ROS patient failed to awaken and underwent induced hypothermia (to 35 degrees Celsius) for 24 hours. After rewarming, patient continued to be unresponsive, and also had fixed and dilated pupils. Patient also developed probable diabetes insipidus, and received desmopressin (10 mcg subQ daily) - last serum sodium was 160 mEq/L. Because of persistent coma and lack of brainstem reflexes, patient underwent a brain determination, which involved the followin. Patient was not hypothermic, not hypotensive, and not hypoglycemic during the evaluation. 2. Patient was unresponsive to deep pain. Additionally, there were no spontaneous movements. 3. Pupillary response to light was absent bilaterally. 4. Corneal reflexes were absent in both eyes. 5. There was no gag or cough reflex. 6. Oculovestibular reflexes were absent; i.e., there was no eye deviation with cold water stimulation of tympanic membranes (bilaterally). 7. Apnea test was confirmatory for brain ; i.e., during O2 insufflation down ET tube, patient was removed from the ventilator for 10 minutes - the arterial PCO2 increased from 43 to 77 mm Hg over this time period, while arterial O2 sats remained around 90%, and the patient showed no spontaneous ventilatory efforts at any time while off the ventilator. Dr. Sr (neurologist) verified the diagnosis of brain - time of was 2:50 PM. Patient's family was present at the time of . Final Diagnoses: 1. Cardiac arrest due to acute asthma exacerbation 2. Anoxic encephalopathy 3. Diabetes insipidus 4. Brain Critical Care Time: 45 minutes
[2017-08-07 16:32] VITALS: BP 140/83
== END 2017-08-07 14:50 | disposition expired | DRG 130 ==
LOC: ED 05:06 → ICU 05:50
PROVIDERS: ADMIT Internal Medicine; ATTEND Internal Medicine Critical Care Medicine
PROC: 5A12012 Performance of Cardiac Output, Single, Manual (ICD-10-PCS; principal; 2017-08-03)
PROC: 0BH17EZ Insertion of Endotracheal Airway into Trachea, Via Natural or Artificial Opening (ICD-10-PCS; 2017-08-03)
PROC: 3E043XZ Introduction of Vasopressor into Central Vein, Percutaneous Approach (ICD-10-PCS; 2017-08-03)
PROC: 5A1955Z Respiratory Ventilation, Greater than 96 Consecutive Hours (ICD-10-PCS; 2017-08-03)
PROC: 04HL33Z Insertion of Infusion Device into Left Femoral Artery, Percutaneous Approach (ICD-10-PCS; 2017-08-03)
PROC: 02HV33Z Insertion of Infusion Device into Superior Vena Cava, Percutaneous Approach (ICD-10-PCS; 2017-08-03)
DX: J96.02 Acute respiratory failure with hypercapnia (principal); R40.20 Unspecified coma; J45.901 Unspecified asthma with (acute) exacerbation; I82.411 Acute embolism and thrombosis of right femoral vein; E23.2 Diabetes insipidus; G93.1 Anoxic brain damage, not elsewhere classified; E87.2 Acidosis; E87.0 Hyperosmolality and hypernatremia; N39.0 Urinary tract infection, site not specified; I46.9 Cardiac arrest, cause unspecified; J96.01 Acute respiratory failure with hypoxia; F41.9 Anxiety disorder, unspecified; F32.9 Major depressive disorder, single episode, unspecified; F12.90 Cannabis use, unspecified, uncomplicated; R00.0 Tachycardia, unspecified; I10 Essential (primary) hypertension; T68.XXXA Hypothermia, initial encounter; I48.91 Unspecified atrial fibrillation; F40.231 Fear of injections and transfusions; Z87.442 Personal history of urinary calculi; R57.1 Hypovolemic shock; I95.9 Hypotension, unspecified; B96.20 Unspecified Escherichia coli [E. coli] as the cause of diseases classified elsewhere; Z66 Do not resuscitate
CPT/HCPCS: 36415; 36600; 70450; 71045; 80048; 80053; 80076; 80307; 81002; 81003; 81015; 82271; 82330; 82436; 82570; 82803; 82947; 83036; 83605; 83735; 83930; 83935; 84100; 84300; 84439; 84443; 84479; 84484; 84540; 84702; 85025; 85027; 85610; 85730; 86140; 86850; 86900; 86901; 87040; 87070; 87077; 87086; 87150; 87186; 87205; 87502; 87641; 92950; 93005; 93306; 93970; 94002; 94003; 94640; 94760; 99285; A9270-GY; J0153; J0171; J0610; J0696; J1644; J1815; J2175; J2250; J2597; J2704; J2920; J2930; J3010; J3105; J3475; J3480; J3490

== ENCOUNTER 2017-08-07 14:50 | Day surgery (SDC) | payer OTHER ==
[2017-08-07 18:04] LABS: ABS Basophils 0 10^3/ul (0-0.2); ABS Eosinophils 0 10^3/ul (0-0.6); ABS Lymphocytes 2.2 10^3/ul (1.0-4.8); ABS Monocytes 0.8 10^3/ul (0-0.8); ABS Neutrophils 10.5 10^3/ul (1.5-7.7); ABS Nucleated RBC 0 10^3/ul; Eosinophil % 0.3 % (0-6); Hematocrit 28 % (35-47); Hemoglobin 9.2 g/dl (12.0-16.0); Lymphocyte % 16.1 % (25-47); Mean Corpuscular HGB Conc 32 g/dl (31-36); Mean Corpuscular Hemoglobin 29 pg (27-31); Mean Corpuscular Volume 90 fL (80-97); Mean Platelet Volume 7.9 um3 (7.4-10.4); Nucleated Red Blood Cells % 0.1; Platelet Count 126 10^3/ul (150-450); Red Blood Count 3.13 10^6/ul (4.0-5.4); Red Cell Distribution Width 15 % (10.5-15); White Blood Count 13.4 10^3/ul (3.5-10.8)
[2017-08-07 18:14] LABS: Urine Appearance Cloudy; Urine Blood Negative (Negative); Urine Color Amber; Urine Ketones Negative (Negative); Urine Protein 2+(100 mg/dL) (Negative); Urine Specific Gravity 1.027 (1.010-1.030); Urine Urobilinogen Negative (Negative)
[2017-08-07 18:15] LABS: INR 1.13 (0.77-1.02)
[2017-08-07 18:27] LABS: EGFR Non-African American 98.8 (>60)
--- NOTE | 2017-08-07 19:13 | RAD ---
Indication: Organ donation. CT of the abdomen and pelvis was performed without oral or IV contrast administration. Coronal and sagittal reconstructed images were obtained. The lung bases demonstrate right lower lobe consolidation. Heart is of normal size without evidence of pericardial effusion. Liver is normal in size. No focal lesions or intrahepatic ductal dilatation is noted. The gallbladder demonstrates high density material in the dependent portion consistent with gallstones. No pericholecystic fluid is identified. The pancreas demonstrates no mass or pancreatic duct dilatation. The spleen is normal in size. No adrenal lesions are noted. The kidneys demonstrates no hydronephrosis. Aorta and inferior vena cava are unremarkable. No dilated loops of bowel are noted. There is a small to moderate amount of free fluid in the pelvis. Urinary bladder is partially collapsed. Small bowel demonstrates no abnormal dilatation. No hernias are noted. IMPRESSION: Right lower lobe airspace disease consistent with pneumonia. Left-sided central line is in place. Free fluid is noted in the pelvis of moderate size. Gallstones without biliary ductal dilatation. The liver is normal in size. The kidneys demonstrate no hydronephrosis.
[2017-08-07] MEDS ORDERED: [UNRECOGNIZED DRUG - OTHER] IV PRN (19:35)
[2017-08-07] MEDS ORDERED: NOREPINEPHRINE IV PRN (19:35)
[2017-08-07] MEDS ORDERED: METHYLPREDNISOLONE IV ONE (20:00)
[2017-08-07] MEDS ORDERED: DEXTROSE IV PUSH ONE (20:00)
[2017-08-07] MEDS ORDERED: LEVOTHYROXINE IV ONE (20:00)
[2017-08-07] MEDS ORDERED: D5W 1000 ML BAG* 1,000 ML IVPB SCH (20:00)
[2017-08-07] MEDS ORDERED: [UNRECOGNIZED DRUG - OTHER] IV ONE (20:00)
[2017-08-07] MEDS ORDERED: INSULIN REGULAR IV PUSH ONE (20:00)
[2017-08-07] MEDS: Pantoprazole IV* 80 MG in NS 0.9% 250 ML* 250 ML IVPB SCH (20:11)
[2017-08-07] MEDS: DESMOPRESSIN IVPB SCH (20:11)
[2017-08-07] MEDS: ZOSYN 3.375 GM IVPB SCH ×2 (20:11)
[2017-08-07] MEDS: [UNRECOGNIZED DRUG - OTHER] IVPB SCH (20:11)
[2017-08-07] MEDS ORDERED: LEVOTHYROXINE 200 MCG IV SCH (20:15)
[2017-08-07] MEDS ORDERED: DEXTROSE IV SCH (20:15)
[2017-08-07] MEDS: Albuterol 2.5 MG/3 ML NEB.SOL* (0.083%) INH SCH ×2 (20:46→22:29)
[2017-08-07] MEDS: Azithromycin IV(*) 500 MG in NS 0.9% 250 ML* 250 ML IVPB SCH (20:57)
[2017-08-08] MEDS: Albuterol 2.5 MG/3 ML NEB.SOL* (0.083%) INH SCH ×10 (00:37→17:55)
[2017-08-08] MEDS: NS 0.45% KCl 20 Meq 1000 ML* 1,000 ML IV SCH ×3 (00:41→16:22)
[2017-08-08] MEDS: Chlorhexidine MOUTHWASH 0.12%* 15 ML UDC TOPICAL SCH ×6 (00:42→21:02)
[2017-08-08 00:51] LABS: ABS Basophils 0 10^3/ul (0-0.2); ABS Eosinophils 0 10^3/ul (0-0.6); ABS Lymphocytes 1.2 10^3/ul (1.0-4.8); ABS Monocytes 0.6 10^3/ul (0-0.8); ABS Neutrophils 12.2 10^3/ul (1.5-7.7); ABS Nucleated RBC 0 10^3/ul; Eosinophil % 0.3 % (0-6); Hematocrit 28 % (35-47); Hemoglobin 9.3 g/dl (12.0-16.0); Lymphocyte % 8.7 % (25-47); Mean Corpuscular HGB Conc 33 g/dl (31-36); Mean Corpuscular Hemoglobin 29 pg (27-31); Mean Corpuscular Volume 89 fL (80-97); Mean Platelet Volume 8.6 um3 (7.4-10.4); Nucleated Red Blood Cells % 0.1; Platelet Count 124 10^3/ul (150-450); Red Blood Count 3.18 10^6/ul (4.0-5.4); Red Cell Distribution Width 15 % (10.5-15); White Blood Count 14.1 10^3/ul (3.5-10.8)
[2017-08-08 00:57] LABS: EGFR Non-African American 100.4 (>60)
[2017-08-08 01:02] LABS: INR 1.11 (0.77-1.02)
[2017-08-08] MEDS: ZOSYN 3.375 GM IVPB SCH ×8 (02:19→21:02)
[2017-08-08 06:11] LABS: Hematocrit 27 % (35-47); Hemoglobin 8.9 g/dl (12.0-16.0); Mean Corpuscular HGB Conc 33 g/dl (31-36); Mean Corpuscular Hemoglobin 29 pg (27-31); Mean Corpuscular Volume 89 fL (80-97); Mean Platelet Volume 8.1 um3 (7.4-10.4); Platelet Count 120 10^3/ul (150-450); Red Blood Count 3.04 10^6/ul (4.0-5.4); Red Cell Distribution Width 14 % (10.5-15); White Blood Count 13.8 10^3/ul (3.5-10.8)
[2017-08-08 06:38] LABS: INR 1.12 (0.77-1.02)
[2017-08-08] MEDS: Heparin VIAL(*) 5000 UNITS/ML VIAL (FIVE THOUSAND) SUBCUT SCH ×3 (06:38→22:40)
[2017-08-08] MEDS: Pantoprazole IV* 80 MG in NS 0.9% 250 ML* 250 ML IVPB SCH ×2 (06:38→16:23)
--- NOTE | 2017-08-08 07:36 | RAD ---
INDICATION: Organ donation. COMPARISON: Comparison is made with a prior CT of the abdomen and pelvis from August 07, 2017. TECHNIQUE: Multiple real-time images of the abdomen were obtained. FINDINGS: The liver is mildly enlarged and normal in echogenicity without significant focal hepatic abnormality. There is a small amount of free intraperitoneal fluid adjacent to the liver. As noted on the prior study there are gallstones and sludge. No gallbladder wall thickening or pericholecystic fluid is present. No positive sonographic Justin sign was present. No intra or extrahepatic ductal distention is present. The common bile duct measured 0.5 cm in diameter. The pancreas is partially obscured by overlying bowel gas. The kidneys are normal in size shape and echogenicity. The right kidney measured 11.0 x 3.6 x 4.6 cm and the left kidney measured 10.9 x 3.9 x 4.4 cm. No hydronephrosis or significant focal renal abnormality is seen. The spleen is normal in size without focal abnormality measuring 11.8 x 4.0 x 4.2 cm. The abdominal aorta is normal in caliber. IMPRESSION: 1. CHOLELITHIASIS AND SLUDGE WITHOUT EVIDENCE FOR ACUTE CHOLECYSTITIS. 2. SMALL AMOUNT OF ASCITES. 3. MILD HEPATOMEGALY.
[2017-08-08] MEDS: [UNRECOGNIZED DRUG - OTHER] IVPB SCH ×2 (08:03→20:03)
[2017-08-08] MEDS: DESMOPRESSIN IVPB SCH ×2 (08:03→20:03)
[2017-08-08 08:04] LABS: ABS Basophils 0 10^3/ul (0-0.2); ABS Eosinophils 0 10^3/ul (0-0.6); ABS Lymphocytes 0.8 10^3/ul (1.0-4.8); ABS Monocytes 0.3 10^3/ul (0-0.8); ABS Neutrophils 12.7 10^3/ul (1.5-7.7); ABS Nucleated RBC 0 10^3/ul; Eosinophil % 0.1 % (0-6); Lymphocyte % 5.7 % (25-47); Nucleated Red Blood Cells % 0.1
--- NOTE | 2017-08-08 08:40 | RAD ---
Indication: Chest radiograph for purpose of organ donation. Comparison: August 07, 2017 Technique: Upright AP 0222 hours Report: Tip of endotracheal tube 1.8 cm above the Lay. Nasogastric tube passes to the stomach. Unchanged alveolar consolidation at the RIGHT lung base. Small to moderate RIGHT pleural effusion not excluded. Negative for pneumothorax. The heart, pulmonary vasculature, and mediastinal contours are unremarkable. IMPRESSION: No significant change in RIGHT basilar airspace consolidation and potential RIGHT pleural effusion.
--- NOTE | 2017-08-08 09:58 | ECHO ---
Patient: NYASIA YING [facility] Rec#: [id number] : 1995 Date: 08/08/2017 Age: 21y Height: 154.9 cm / 61.0 in Weight: 60.3 kg / 132.9 lbs Sex: F BSA: 1.59 Room#: ICU 2 Admit Date#: 08/07/2017 Type: Inpatient Referring: Miah Landers MD Reading: Miah De La Cruz MD Director Financial Planning: Emilia Mora RN RDCS Transthoracic Echocardiogram Indication: Organ donation BP: 144/120 HR: 131 Rhythm: Tachycardia Findings History: Asthma with respiratory arrest, CPR with ROSC, intubated and mechanically ventilated. Technical Comments: The study is technically limited due to patient being intubated and on a ventilator. Left Ventricle: The left ventricular chamber size is normal. There is no left ventricular hypertrophy. Mild global hypokinesis of the left ventricle is observed. There is mildly decreased left ventricular systolic function.The assessment of LV systolic function is limited by the tachycardia, as the systolic function might appear even better at a slower heart rate. The estimated ejection fraction is 45-50%. Normal left ventricular diastolic filling is observed. Left Atrium: The left atrial chamber size is normal. Right Ventricle: The right ventricular cavity size is normal. The right ventricular global systolic function is mildly reduced. Right Atrium: The right atrial cavity size is normal. Aortic Valve: The aortic valve is trileaflet. There is no evidence of aortic regurgitation. There is no evidence of aortic stenosis. Mitral Valve: The mitral valve leaflets are mildly thickened.Cannot rule out mild anterior mitral valve leaflet prolapse. There is mild to moderate mitral regurgitation. The mitral regurgitant jet is posteriorly directed. There is no evidence of mitral stenosis. Tricuspid Valve: The tricuspid valve leaflets are normal. There is trace tricuspid regurgitation. Unable to estimate the right ventricular systolic pressure. There is no tricuspid stenosis. Pulmonic Valve: The pulmonic valve appears normal. There is a trace pulmonic regurgitation. There is no pulmonic stenosis. Pericardium: There is no significant pericardial effusion. Aorta: There is no dilatation of the ascending aorta. The aortic arch is not well visualized. There is no dilation of the aortic root. Pulmonary Artery: The main pulmonary artery appears normal. Venous: Unable to accurately comment on the size collapsibility of the IVC as the patient in known to be on mechanical ventilation. Conclusions Mild global hypokinesis of the left ventricle is observed. There is mildly decreased left ventricular systolic function (The assessment of LV systolic function is limited by the tachycardia, as the systolic function might appear even better at a slower heart rate). The estimated ejection fraction is 45-50%. The mitral valve leaflets are mildly thickened.Cannot rule out mild anterior mitral valve leaflet prolapse. There is mild to moderate mitral regurgitation. The mitral regurgitant jet is posteriorly directed. No reports of prior studies are offered for comparison. Measurements Name Value Normal Range RVIDd (AP) 2D 1.7 cm (0.9 - 2.6) RVDdMajor (2D) 2.6 cm (2.2 - 4.4) RAd ISD 4CH 3 cm (3.4 - 4.9) RA (A4C)W 3.1 cm (2.9 - 4.6) IVSd (2D) 1 cm (0.6 - 1) LVPWd (2D) 0.9 cm (0.6 - 1) LVIDd (2D) 4 cm (3.6 - 5.4) LVIDs (2D) 3 cm - LV FS (2D) 25 % (25 - 45) Aortic Annulus 2 cm (1.4 - 2.6) Ao root diameter (2D) 2.5 cm (2.1 - 3.5) Ascending Ao 2.7 cm (2.1 - 3.4) LA dimension (AP) 2D 2.3 cm (2.3 - 3.8) LAd ISD 4CH 3.1 cm (2.9 - 5.3) LA ISD 4CH W 3.1 cm (2.5 - 4.5) Name Value Normal Range LA ESV SP 4CH (A/L) 29 ml - LA ESV SP 2CH (A/L) 22 ml - LA ESV BP (A/L) 29 ml - LA ESV BP (A/L) index 18.2 ml/m2 - LA ESV SP 4CH (MOD) 25 ml - LA ESV SP 2CH (MOD) 20 ml - LV EDV SP 4CH (MOD) 56.77 ml - LV ESV SP 4CH (MOD) 29.92 ml - EF SP 4CH (MOD) 47.3 % - LV EDV SP 2CH (MOD) 97.04 ml - LV ESV SP 2CH (MOD) 32.18 ml - EF SP 2CH (MOD) 66.84 % - LV EDV BP 74.07 ml - LV ESV BP 31.01 ml - BP EF (MOD) 58.13 % - LV EDV BP index 46.65 ml/m2 - LV ESV BP index 19.53 ml/m2 - Name Value Normal Range MV E-wave Vmax 1.2 m/sec - LV septal e' Vmax 0.14 m/sec - LV lateral e' Vmax 0.16 m/sec - LV E:e' septal ratio 8.6 ratio - LV E:e' lateral ratio 7.5 ratio - Name Value Normal Range AV Vmax 1.3 m/sec - AV VTI 21.2 cm - AV peak gradient 6.7 mmHg - AV mean gradient 3.8 mmHg - LVOT diameter 1.9 cm - LVOT Vmax 1 m/sec - LVOT VTI 17.7 cm - LVOT peak gradient 4.3 mmHg - LVOT mean gradient 2.2 mmHg - DOI (VTI) 0.83 ratio - DOI (Vmax) 0.8 ratio - SV LVOT 50.1 ml - CO LVOT 6.6 l/min - Cardiac index 4.1 l/min/m2 - JALEESA (continuity Vmax) 2.3 cm2 - JALEESA (continuity VTI) 2.4 cm2 - Name Value Normal Range MR Vmax 6.28 m/sec - MR VTI 158.3 cm - MR volume (PISA) 23.7 ml - MR flow (PISA) 92 ml/sec - MR ERO 0.15 cm2 - MR PISA radius 0.64 cm - MR alias Vmax 35 cm/sec - Name Value Normal Range IVC diameter 2.1 cm - Name Value Normal Range PV Vmax 0.86 m/sec - RVOT diameter 2 cm - RVOT VTI 15.5 cm - SV RVOT 48.7 ml - CO RVOT 6.38 l/min - Qp:Qs 0.97 ratio -
--- NOTE | 2017-08-08 11:54 | RAD ---
Indication: Tissue viability for organ donation. Comparison: August 08, 2017 O220 hours Technique: Upright AP portable chest 1010 hours Report: Rightward rotation noted. Significantly improved aeration at the RIGHT lung base compared with the earlier exam of the same date. Small dependent RIGHT pleural effusion with proportional mild atelectasis. Endotracheal tube 1.5 cm above the martine and directed toward the RIGHT mainstem bronchus. Nasogastric tube passes to the level of the gastric cardia. The heart, pulmonary vasculature, and mediastinal contours are unremarkable. IMPRESSION: Significantly improved aeration at the RIGHT lung base compared with the earlier exam of the same date. Small dependent RIGHT pleural effusion with proportional mild atelectasis.
[2017-08-08 12:34] LABS: Hematocrit 26 % (35-47); Hemoglobin 8.5 g/dl (12.0-16.0); Mean Corpuscular HGB Conc 32 g/dl (31-36); Mean Corpuscular Hemoglobin 29 pg (27-31); Mean Corpuscular Volume 89 fL (80-97); Platelet Count 117 10^3/ul (150-450); Red Blood Count 2.96 10^6/ul (4.0-5.4); Red Cell Distribution Width 14 % (10.5-15); White Blood Count 12.9 10^3/ul (3.5-10.8)
[2017-08-08 12:40] LABS: INR 1.11 (0.77-1.02)
[2017-08-08 12:44] LABS: Urine Appearance Clear; Urine Blood 1+ (Negative); Urine Color Yellow; Urine Ketones Negative (Negative); Urine Protein Negative (Negative); Urine Specific Gravity 1.021 (1.010-1.030); Urine Urobilinogen Negative (Negative)
[2017-08-08 13:03] LABS: EGFR Non-African American 123.9 (>60)
[2017-08-08 13:04] LABS: ABS Basophils 0 10^3/ul (0-0.2); ABS Eosinophils 0 10^3/ul (0-0.6); ABS Monocytes 0.7 10^3/ul (0-0.8); ABS Neutrophils 11.2 10^3/ul (1.5-7.7); ABS Nucleated RBC 0 10^3/ul; Eosinophil % 0.1 % (0-6); Lymphocyte % 8.1 % (25-47); Nucleated Red Blood Cells % 0.1
[2017-08-08 18:11] LABS: Hematocrit 25 % (35-47); Hemoglobin 8.2 g/dl (12.0-16.0); Mean Corpuscular HGB Conc 33 g/dl (31-36); Mean Corpuscular Hemoglobin 29 pg (27-31); Mean Corpuscular Volume 88 fL (80-97); Mean Platelet Volume 8.3 um3 (7.4-10.4); Platelet Count 119 10^3/ul (150-450); Red Blood Count 2.85 10^6/ul (4.0-5.4); Red Cell Distribution Width 14 % (10.5-15); White Blood Count 12.6 10^3/ul (3.5-10.8)
[2017-08-08 18:19] LABS: INR 1.12 (0.77-1.02)
[2017-08-08 18:29] LABS: EGFR Non-African American 131.4 (>60)
[2017-08-08] MEDS ORDERED: Albuterol 2.5 MG/3 ML NEB.SOL* (0.083%) INH PRN (19:28)
[2017-08-08] MEDS ORDERED: Esmolol 10 MG/ML IVPREMIX* 2,500 MG/250 ML BAG IVPB SCH (21:00)
[2017-08-08] MEDS ORDERED: NS 0.9% 500 ML* 492 ML with Norepinephrine VIAL* 8 MG IV SCH ×2 (21:00)
[2017-08-08] MEDS: Azithromycin IV(*) 500 MG in NS 0.9% 250 ML* 250 ML IVPB SCH (21:04)
[2017-08-08 21:24] LABS: ABS Basophils 0 10^3/ul (0-0.2); ABS Eosinophils 0 10^3/ul (0-0.6); ABS Lymphocytes 1.4 10^3/ul (1.0-4.8); ABS Monocytes 1.1 10^3/ul (0-0.8); ABS Neutrophils 10.1 10^3/ul (1.5-7.7); ABS Nucleated RBC 0 10^3/ul; Eosinophil % 0.1 % (0-6); Lymphocyte % 10.9 % (25-47); Nucleated Red Blood Cells % 0.1
[2017-08-08] MEDS ORDERED: ALBUMIN HUMAN 5% IV ONE (22:00)
[2017-08-08] MEDS ORDERED: Norepinephrine 16MCG/ML IVPRE* 4,000 MCG/250 ML BAG IV SCH (22:00)
[2017-08-08] MEDS ORDERED: Rocuronium* 10 MG/ML VIAL ONE (23:50)
[2017-08-09] MEDS ORDERED: VASOPRESSIN 20 UNITS/ML 1 ML VIAL ONE (01:07)
[2017-08-09] MEDS ORDERED: Saline, Bacteriostatic* 30 ML VIAL ONE (02:48)
== END 2017-08-09 01:26 | disposition expired ==
LOC: OR 14:50 → ICU 14:50 → OR 16:24
PROVIDERS: ATTEND Internal Medicine
DX: Z52.89 Donor of other specified organs or tissues (principal)
CPT/HCPCS: 36415; 36600; 71045; 74176; 76700; 80053; 81003; 81015; 82150; 82248; 82550; 82553; 82803; 82977; 83036; 83690; 83735; 84100; 84484; 85025; 85610; 85730; 87040; 87070; 87086; 87106; 87205; 93005; 93306; 94003; 94640; A9270-GY; C1776; J0456; J1644; J2543; J2597; J2930; P9045